=== PATIENT | female | born 1950 | race Caucasian/White ===

== ENCOUNTER 2023-12-09 14:40 | Outpatient (AMB) | payer MEDICARE, MEDICAID, SELFPAY ==
--- NOTE | 2023-12-09 15:00 | HO.NEPHOV_ITS ---
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: No Accompanied by: Spouse Allergies cimetidine [From Tagamet] Allergy (Verified 12/09/23 15:13) Gastrointestinal Upset clarithromycin [From Biaxin] Allergy (Verified 12/09/23 15:13) Unknown clonidine Allergy (Verified 12/09/23 15:13) spasms erythromycin base Allergy (Verified 12/09/23 15:13) Rash gabapentin Allergy (Verified 12/09/23 15:13) Muscle Pain lisinopril Allergy (Verified 12/09/23 15:13) Angioedema methocarbamol Allergy (Verified 12/09/23 15:13) Nausea ondansetron Allergy (Verified 12/09/23 15:13) Unknown Penicillins Allergy (Verified 12/09/23 15:13) Unknown Sulfa (Sulfonamide Antibiotics) Allergy (Verified 12/09/23 15:13) Rash tramadol [From Ultram] Allergy (Verified 12/09/23 15:13) Nausea and Vomiting trazodone Allergy (Verified 12/09/23 15:13) Nausea metoprolol Adverse Reaction (Verified 12/09/23 15:13) Agitated HPI Comments Details: I had the privilege of seeing Mercedez in consultation for labile blood pressure. She has hypertension from the age of 41 years and has been on multiple medications. She claims that she has a diagnosis of autonomic dysfunction and has been evaluated in the clinic in [place]. She is still follows up with a physician over there. She had tried multiple antihypertensive medications. She has lot of medication intolerances. She has history of aortic dissection and follows up with vascular surgery. She monitors her blood pressure closely at home. She feels she has a head esparza when her blood pressure goes up and takes hydralazine at the time. She does not take hydralazine on a regular basis. She has no history of renal artery dissection. She feels she gets spasms when she takes clonidine and has history of angioedema while taking lisinopril. She also has history of emotional lability while taking beta bloc ker. She denies any coronary artery disease, CVA, congestive heart failure or peripheral arterial disease. She denies any history of hypokalemia, hypercalcemia, uncontrolled thyroid disorders or documented history of sleep apnea. She was accompanied by her during this office visit. [facility] Medical History (Updated 12/09/23 @ 16:02 by Gurjit Brooks MD) Gastroparesis Autonomic dysreflexia Vertigo Fibromyalgia History of chronic constipation Essential (primary) hypertension Asthma Reflex sympathetic dystrophy Surgical History (Updated 12/04/23 @ 11:53 by Yani Tejada MA) History of repair of vocal cord History of cataract surgery History of cholecystectomy History of surgical removal of ganglion cyst History of appendectomy History of partial hysterectomy S/P cervical spinal fusion Family History (Updated 12/09/23 @ 15:18 by Yani Tejada MA) Father Cancer Paternal Grandfather Heart disease Hypertension Paternal Grandmother Heart disease Hypertension Social History (Updated 12/09/23 @ 15:19 by Yani Tejada MA) Alcohol intake: never Patient Tobacco Use Status: Never used Tobacco Physical Exam Vital Signs: Last Vital Signs Pulse 67 12/09/23 15:01 BP 180/80 H 12/09/23 15:01 Pulse Ox 98 12/09/23 15:01 Oxygen Delivery Method Room Air 12/09/23 15:01 BMI result Body Mass Index 21.7 Const General: comfortable and no acute distress Orientation/consciousness: patient oriented x3 HEENT Head: Yes normocephalic Mouth: Normal oral and palatal mucosa present Eyes EOM: EOMs intact bilaterally Neck Neck: Yes supple Resp Auscultation: clear to auscultation bilaterally Cardio Jugular venous distension: no JVD Rate: regular rate GI Palpation (GI): Soft to palpation Auscultation: normal bowel sounds General: Yes no CVA tenderness Back/Spine/Pelvis Back: no CVA tenderness Skin General skin exam: no rashes or lesions noted Neuro General: patient oriented x3 and moves all extremities Extrem General: Yes no pedal edema Results Reviewed Nephrology Results: No Data to Display Assessment & Plan Assessment & Plan (1) Labile hypertension: Code(s): R09.89 - Other specified symptoms and signs involving the circulatory and respiratory systems Category: Medical Plan Mercedez is known to have hypertension since age of 41 and has been on multiple antihypertensive medications. She claims to have lability of blood pressure ever since she was hospitalized few years ago. She had multiple medication changes. She had an episode of head esparza during the office visit during which I checked blood pressure multiple times and it was 120/80. She said she would have taken hydralazine based on subjective 80 if she was at home during the time, which I discouraged. She has not known to have any renal dysfunction. She has medication intolerances with clonidine, metoprolol and has history of angioedema with lisinopril. She does not take excessive sodium in the diet. I asked her to maintain on carvedilol. She also takes isosorbide(which she thinks was prescribed due to some atypical chest pain symptoms as well as blood pressure issues). I put a 24 hour ambulatory blood pressure during this office visit and send her home with it. I did not make any medication changes. She did not have any orthostatic symptoms while during the office visit. She needs to follow-up closely with the vascular surgeon. More than 50% time during this visit was utilized to discuss about all potential possibilities for the lability of blood pressure, it is investigations and possible management strategies. Answered all her and her 's questions. Follow-up appointment given Orders: Orders AMB 24 Hour Blood Pressure Monitor PLACEMENT 12/09/23 R09.89 - Other specified symptoms and signs involving the circulatory and respiratory systems Coding Level of Care Code New Pt Level 4 (89500) Diagnoses Labile hypertension R09.89
[2023-12-09 15:01] VITALS: BP 120/80; PULSE 67; O2SAT 98; BMI 21.7
== END 2023-12-09 16:25 | disposition home or self-care (01) ==
PROVIDERS: PCP Family Medicine; Referring Provider Family Medicine; Visit Provider Internal Medicine Nephrology
DX: R09.89 Other specified symptoms and signs involving the circulatory and respiratory systems (principal)
CPT/HCPCS: 99204

== ENCOUNTER → 2023-12-09 14:40 | Outpatient (BNVA) | payer MEDICARE, MEDICAID, SELFPAY | PROVIDERS: PCP Family Medicine; Referring Provider Family Medicine; Visit Provider Internal Medicine Nephrology | DX: R03.0 Elevated blood-pressure reading, without diagnosis of hypertension (principal) | CPT/HCPCS: 99202 ==

== ENCOUNTER → 2023-12-10 10:42 | Outpatient (BNVA) | payer MEDICARE, MEDICAID, SELFPAY | PROVIDERS: PCP Family Medicine; Visit Provider Internal Medicine Nephrology ==

== ENCOUNTER → 2023-12-11 10:43 | Outpatient (BNVA) | payer MEDICARE, MEDICAID, SELFPAY | PROVIDERS: PCP Family Medicine; Visit Provider Internal Medicine Nephrology ==

== ENCOUNTER 2023-12-16 13:47 | Outpatient (AMB) | payer MEDICARE, MEDICAID, SELFPAY ==
--- NOTE | 2023-12-16 13:52 | HO.NEPHOV_ITS ---
Vital Signs 12/16/23 13:53 Height 5 ft Weight 113 lb 4 oz BMI 22.1 BP 150/80 H Blood Pressure Location Lt brachial Position Sitting Pulse 74 Pulse Source Pulse Oximeter Pulse Oximetry (%) 98 Oxygen Delivery Method Room Air Intake Visit Reasons: 1 wk follow up/ Conf Dj Instructor Required: No Accompanied by: Spouse Allergies cimetidine [From Tagamet] Allergy (Verified 12/16/23 13:55) Gastrointestinal Upset clarithromycin [From Biaxin] Allergy (Verified 12/16/23 13:55) Unknown clonidine Allergy (Verified 12/16/23 13:55) spasms erythromycin base Allergy (Verified 12/16/23 13:55) Rash gabapentin Allergy (Verified 12/16/23 13:55) Muscle Pain lisinopril Allergy (Verified 12/16/23 13:55) Angioedema methocarbamol Allergy (Verified 12/16/23 13:55) Nausea ondansetron Allergy (Verified 12/16/23 13:55) Unknown Penicillins Allergy (Verified 12/16/23 13:55) Unknown Sulfa (Sulfonamide Antibiotics) Allergy (Verified 12/16/23 13:55) Rash tramadol [From Ultram] Allergy (Verified 12/16/23 13:55) Nausea and Vomiting trazodone Allergy (Verified 12/16/23 13:55) Nausea metoprolol Adverse Reaction (Verified 12/16/23 13:55) Agitated HPI Comments Details: I had the privilege of seeing Mercedez in follow up for labile blood pressure. She has hypertension from the age of 41 years and has been on multiple medications. She claims that she has a diagnosis of autonomic dysfunction and has been evaluated in the clinic in [place]. She is still follows up with a physician over there. She had tried multiple antihypertensive medications. She has lot of medication intolerances. She has history of aortic dissection and follows up with vascular surgery. She monitors her blood pressure closely at home. She feels she has a head esparza when her blood pressure goes up and takes hydralazine at the time. She does not take hydralazine on a regular basis. On further H/O taking today, she feels she gets a funny feeling followed by unawareness of her surroundings, disconnect from every one , foggy in head for an hour followed by urge to empty the bladder. After the event she feels tired. When someone checks her BP during the event, its always high. She never had chest pain, palpitations or tonic clonic movements of the limbs during this event. She has no history of renal artery dissection. She feels she gets spasms when she takes clonidine and has history of angioedema while taking lisinopril. She also has history of emotional lability while taking beta gautam. She denies any coronary artery disease, CVA, congestive heart failure or peripheral arterial disease. She denies any history of hypokalemia, hypercalcemia, uncontrolled thyroid disorders or documented history of sleep apnea. She had a 24 hour BPM which showed well controlled BP most of the time. She was accompanied by her during this office visit. [facility] Medical History (Updated 12/09/23 @ 16:02 by Gurjit Brooks MD) Gastroparesis Autonomic dysreflexia Vertigo Fibromyalgia History of chronic constipation Essential (primary) hypertension Asthma Reflex sympathetic dystrophy Surgical History History of repair of vocal cord History of cataract surgery History of cholecystectomy History of surgical removal of ganglion cyst History of appendectomy History of partial hysterectomy S/P cervical spinal fusion Family History Father Cancer Paternal Grandfather Heart disease Hypertension Paternal Grandmother Heart disease Hypertension Social History Alcohol intake: never Patient Tobacco Use Status: Never used Tobacco Review of Systems Const All systems reviewed & are unremarkable except as noted in HPI and below Physical Exam Vital Signs: Last Vital Signs Pulse 74 12/16/23 13:53 BP 150/80 H 12/16/23 13:53 Pulse Ox 98 12/16/23 13:53 Oxygen Delivery Method Room Air 12/16/23 13:53 BMI result Body Mass Index 22.1 Const General: comfortable and no acute distress Orientation/consciousness: patient oriented x3 HEENT Head: Yes normocephalic Mouth: Normal oral and palatal mucosa present Eyes EOM: EOMs intact bilaterally Neck Neck: Yes supple Resp Auscultation: clear to auscultation bilaterally Cardio Jugular venous distension: no JVD Rate: regular rate GI Palpation (GI): Soft to palpation Auscultation: normal bowel sounds General: Yes no CVA tenderness Back/Spine/Pelvis Back: no CVA tenderness Skin General skin exam: no rashes or lesions noted Neuro General: patient oriented x3 and moves all extremities Extrem General: Yes no pedal edema Results Reviewed Nephrology Results: No Data to Display Assessment & Plan Assessment & Plan (1) Labile hypertension: Code(s): R09.89 - Other specified symptoms and signs involving the circulatory and respiratory systems Category: Medical Plan Mercedez is known to have hypertension since age of 41 and has been on multiple antihypertensive medications. She claims to have lability of blood pressure ever since she was hospitalized few years ago. She had multiple medication changes. She had an episode of head esparza during the last office visit during which I checked blood pressure multiple times and it was 120/80. She said she would have taken hydralazine based on subjective 80 if she was at home during the time, which I discouraged. She needs LTM/ at least an EEG as well as a loop recorder. She is having a consultation with her [place] Neurologist on coming Friday. She has not known to have any renal dysfunction. She has medication intolerances with clonidine, metoprolol and has history of angioedema with lisinopril. She does not take excessive sodium in the diet. I asked her to maintain on carvedilol. She also takes isosorbide(which she thinks was prescribed due to some atypical chest pain symptoms as well as blood pressure issues). Her 24 hour ambulatory blood pressure showed an average of 125/ 69 mm of Hg with day time average of 132/73 mm of Hg and night time average of 101/54 mm of Hg. I did not make any medication changes. I ordered some more secondary work up for BP. She did not have any orthostatic symptoms while during the office visit. She needs to follow-up closely with the vascular surgeon. More than 50% time during this visit was utilized to discuss about all potential possibilities , it is investigations and possible management strategies. Answered all her and her 's questions. Follow-up appointment given Orders: Orders Aldost/Renin Today R09.89 - Other specified symptoms and signs involving the circulatory and respiratory systems Metanephrines, Plasma Today R09.89 - Other specified symptoms and signs involving the circulatory and respiratory systems Cortisol Random Today R09.89 - Other specified symptoms and signs involving the circulatory and respiratory systems Renin Today R09.89 - Other specified symptoms and signs involving the circulatory and respiratory systems Aldosterone Today R09.89 - Other specified symptoms and signs involving the circulatory and respiratory systems Coding Level of Care Code Est Pt Level 5 (89786) Diagnoses Labile hypertension R09.89
[2023-12-16 13:53] VITALS: BP 150/80; PULSE 74; O2SAT 98; BMI 22.1
== END 2023-12-16 14:23 | disposition home or self-care (01) ==
PROVIDERS: PCP Family Medicine; Visit Provider Internal Medicine Nephrology
DX: I10 Essential (primary) hypertension (principal); R09.89 Other specified symptoms and signs involving the circulatory and respiratory systems
CPT/HCPCS: 93790; 99214

== ENCOUNTER → 2023-12-16 13:47 | Outpatient (BNVA) | payer MEDICARE, MEDICAID, SELFPAY | PROVIDERS: PCP Family Medicine; Visit Provider Internal Medicine Nephrology | DX: R09.89 Other specified symptoms and signs involving the circulatory and respiratory systems (principal) | CPT/HCPCS: 99212 ==

== ENCOUNTER 2024-01-20 13:26 | Outpatient (AMB) | payer MEDICARE, MEDICAID, SELFPAY ==
--- NOTE | 2024-01-20 13:26 | HO.NEPHOV ---
Vital Signs 01/20/24 13:27 Height 5 ft Weight 110 lb BMI 21.5 BP 148/76 H Blood Pressure Location Lt brachial Position Sitting Pulse 75 Pulse Source Pulse Oximeter Intake Visit Reasons: 1 mon follow up/ Conf Director Of Clinical Applications Required: No Accompanied by: Self / Same As Patient Allergies cimetidine [From Tagamet] Allergy (Verified 01/20/24 13:27) Gastrointestinal Upset clarithromycin [From Biaxin] Allergy (Verified 01/20/24 13:27) Unknown clonidine Allergy (Verified 01/20/24 13:27) spasms erythromycin base Allergy (Verified 01/20/24 13:27) Rash gabapentin Allergy (Verified 01/20/24 13:27) Muscle Pain lisinopril Allergy (Verified 01/20/24 13:27) Angioedema methocarbamol Allergy (Verified 01/20/24 13:27) Nausea ondansetron Allergy (Verified 01/20/24 13:27) Unknown Penicillins Allergy (Verified 01/20/24 13:27) Unknown Sulfa (Sulfonamide Antibiotics) Allergy (Verified 01/20/24 13:27) Rash tramadol [From Ultram] Allergy (Verified 01/20/24 13:27) Nausea and Vomiting trazodone Allergy (Verified 01/20/24 13:27) Nausea metoprolol Adverse Reaction (Verified 01/20/24 13:27) Agitated HPI Comments Details: I had the privilege of seeing Mercedez in follow up by tele health visit for labile blood pressure. She has hypertension from the age of 41 years and has been on multiple medications. She claims that she has a diagnosis of autonomic dysfunction and has been evaluated in the clinic in [place]. She is still follows up with a physician over there. She had tried multiple antihypertensive medications. She has lot of medication intolerances. She has history of aortic dissection and follows up with vascular surgery( Dr Zaragoza). She monitors her blood pressure closely at home. She feels she has a head esparza when her blood pressure goes up and takes hydralazine at the time. She does not take hydralazine on a regular basis. On further H/O taking today, she feels she gets a funny feeling followed by unawareness of her surroundings, disconnect from every one , foggy in head for an hour followed by urge to empty the bladder. After the event she feels tired. When someone checks her BP during the event, its always high. She never had chest pain, palpitations or tonic clonic movements of the limbs during this event. She has no history of renal artery dissection. She feels she gets spasms when she takes clonidine and has history of angioedema while taking lisinopril. She also has history of emotional lability while taking beta gautam. She denies any coronary artery disease, CVA, congestive heart failure or peripheral arterial disease. She denies any history of hypokalemia, hypercalcemia, uncontrolled thyroid disorders or documented history of sleep apnea. She had a 24 hour BPM which showed well controlled BP most of the time. [facility] Medical History (Updated 12/09/23 @ 16:02 by Gurjit Brooks MD) Gastroparesis Autonomic dysreflexia Vertigo Fibromyalgia History of chronic constipation Essential (primary) hypertension Asthma Reflex sympathetic dystrophy Surgical History History of repair of vocal cord History of cataract surgery History of cholecystectomy History of surgical removal of ganglion cyst History of appendectomy History of partial hysterectomy S/P cervical spinal fusion Family History Father Cancer Paternal Grandfather Heart disease Hypertension Paternal Grandmother Heart disease Hypertension Social History Alcohol intake: never Patient Tobacco Use Status: Never used Tobacco Physical Exam Vital Signs: Last Vital Signs Pulse 75 01/20/24 13:27 BP 148/76 H 01/20/24 13:27 BMI result Body Mass Index 21.5 Telehealth Telehealth Telehealth Platform: Telephone Location of provider rendering services: practice address Location of patient: address on file Patient Identification confirmed using: Name, : Yes Telehealth method: voice only Patient verbally consented to treatment: Yes Patient verbally consented to billing insurance company: Yes Patient informed of any privacy concerns related to visit: No Results Reviewed Nephrology Results: No Data to Display Assessment & Plan Assessment & Plan (1) Labile hypertension: Code(s): R09.89 - Other specified symptoms and signs involving the circulatory and respiratory systems Category: Medical Plan Mercedez is known to have hypertension since age of 41 and has been on multiple antihypertensive medications. She claims to have lability of blood pressure ever since she was hospitalized few years ago. She had multiple medication changes. She had an episode of head esparza during one of the last office visits during which I checked blood pressure multiple times and it was 120/80. She said she would have taken hydralazine based on subjective 80 if she was at home during the time, which I discouraged. She needs LTM/ at least an EEG as well as a loop recorder. She has not known to have any renal dysfunction. She needs F/U of Doppler of renal arteries. She has medication intolerances with clonidine, metoprolol and has history of angioedema with lisinopril. She does not take excessive sodium in the diet. I increased the carvedilol to 12.5 mg in the morning and C/W 6.25 mg at night. She should take Isosorbide in the middle of the day. She thinks was prescribed due to some atypical chest pain symptoms as well as blood pressure issues. Her 24 hour ambulatory blood pressure showed an average of 125/ 69 mm of Hg with day time average of 132/73 mm of Hg and night time average of 101/54 mm of Hg. I did not make any other medication changes. She needs to follow-up closely with the vascular surgeon. More than 50% time during this visit was utilized to discuss about all potential possibilities , it is investigations and possible management strategies. Answered all her questions. Follow-up appointment given Coding Level of Care Code Tele Est Pt Level 4 (16104) Diagnoses Labile hypertension R09.89
[2024-01-20 13:27] VITALS: BP 148/76; PULSE 75; BMI 21.5
== END 2024-01-20 15:02 | disposition home or self-care (01) ==
LOC: HO.HKAS 13:26
PROVIDERS: PCP Family Medicine; Visit Provider Internal Medicine Nephrology
DX: R09.89 Other specified symptoms and signs involving the circulatory and respiratory systems (principal)
CPT/HCPCS: 99442

== ENCOUNTER → 2024-01-20 13:26 | Outpatient (BNVA) | payer MEDICARE, MEDICAID, SELFPAY | PROVIDERS: PCP Family Medicine; Visit Provider Internal Medicine Nephrology ==

== ENCOUNTER 2024-05-27 14:29 | Outpatient (AMB) | payer MEDICARE, MEDICAID, SELFPAY ==
--- NOTE | 2024-05-27 14:44 | HO.NEPHOV ---
Vital Signs 05/27/24 14:47 Height 5 ft Weight 109 lb 6 oz BMI 21.4 BP 190/74 H Blood Pressure Location Lt brachial Position Sitting Pulse 72 Pulse Source Pulse Oximeter Pulse Oximetry (%) 99 Oxygen Delivery Method Room Air Intake Visit Reasons: follow up Retirement Plan Specialist Required: No Accompanied by: Spouse Allergies cimetidine [From Tagamet] Allergy (Verified 05/27/24 14:47) Gastrointestinal Upset clarithromycin [From Biaxin] Allergy (Verified 05/27/24 14:47) Unknown clonidine Allergy (Verified 05/27/24 14:47) spasms erythromycin base Allergy (Verified 05/27/24 14:47) Rash gabapentin Allergy (Verified 05/27/24 14:47) Muscle Pain lisinopril Allergy (Verified 05/27/24 14:47) Angioedema methocarbamol Allergy (Verified 05/27/24 14:47) Nausea ondansetron Allergy (Verified 05/27/24 14:47) Unknown Penicillins Allergy (Verified 05/27/24 14:47) Unknown Sulfa (Sulfonamide Antibiotics) Allergy (Verified 05/27/24 14:47) Rash tramadol [From Ultram] Allergy (Verified 05/27/24 14:47) Nausea and Vomiting trazodone Allergy (Verified 05/27/24 14:47) Nausea metoprolol Adverse Reaction (Verified 05/27/24 14:47) Agitated HPI Comments Details: Mercedez was seen in follow for labile blood pressure. She has hypertension from the age of 41 years and has been on multiple medications. She claims that she has a diagnosis of autonomic dysfunction and has been evaluated in the clinic in [place]. She is still follows up with a physician over there. She had tried multiple antihypertensive medications. She has lot of medication intolerances. She has history of aortic dissection and follows up with vascular surgery( Dr Zaragoza). She monitors her blood pressure closely at home. She feels she has a head esparza when her blood pressure goes up and takes hydralazine at the time. She does not take hydralazine on a regular basis. On further H/O taking , she feels she gets a funny feeling followed by unawareness of her surroundings, disconnect from every one , foggy in head for an hour followed by urge to empty the bladder. After the event she feels tired. When someone checks her BP during the event, its always high. She never had chest pain, palpitations or tonic clonic movements of the limbs during this event. She has no history of renal artery dissection. She feels she gets spasms when she takes clonidine and has history of angioedema while taking lisinopril. She also has history of emotional lability while taking beta gautam. She denies any coronary artery disease, CVA, congestive heart failure or peripheral arterial disease. She denies any history of hypokalemia, hypercalcemia, uncontrolled thyroid disorders or documented history of sleep apnea. Her Carvedilol dose was increased recently. [facility] Medical History (Updated 12/09/23 @ 16:02 by Gurjit Brooks MD) Gastroparesis Autonomic dysreflexia Vertigo Fibromyalgia History of chronic constipation Essential (primary) hypertension Asthma Reflex sympathetic dystrophy Surgical History History of repair of vocal cord History of cataract surgery History of cholecystectomy History of surgical removal of ganglion cyst History of appendectomy History of partial hysterectomy S/P cervical spinal fusion Family History Father Cancer Paternal Grandfather Heart disease Hypertension Paternal Grandmother Heart disease Hypertension Social History Alcohol intake: never Patient Tobacco Use Status: Never used Tobacco Review of Systems Const All systems reviewed & are unremarkable except as noted in HPI and below Physical Exam Vital Signs: Last Vital Signs Pulse 72 05/27/24 14:47 BP 190/74 H 05/27/24 14:47 Pulse Ox 99 05/27/24 14:47 Oxygen Delivery Method Room Air 05/27/24 14:47 BMI result Body Mass Index 21.4 Const General: comfortable and no acute distress Orientation/consciousness: patient oriented x3 HEENT Head: Yes normocephalic Mouth: Normal oral and palatal mucosa present Eyes EOM: EOMs intact bilaterally Neck Neck: Yes supple Resp Auscultation: clear to auscultation bilaterally Cardio Jugular venous distension: no JVD Rate: regular rate GI Palpation (GI): Soft to palpation Auscultation: normal bowel sounds General: Yes no CVA tenderness Back/Spine/Pelvis Back: no CVA tenderness Skin General skin exam: no rashes or lesions noted Neuro General: patient oriented x3 and moves all extremities Extrem General: Yes no pedal edema Results Reviewed Nephrology Results: No Data to Display Assessment & Plan Assessment & Plan (1) Labile hypertension: Code(s): R09.89 - Other specified symptoms and signs involving the circulatory and respiratory systems Category: Medical Plan Mercedez is known to have hypertension since age of 41 and has been on multiple antihypertensive medications. She claims to have lability of blood pressure ever since she was hospitalized few years ago. She had multiple medication changes. She needs LTM/ at least an EEG as well as a loop recorder. She has not known to have any renal dysfunction. She needs F/U of Doppler of renal arteries. She has medication intolerances with clonidine, metoprolol and has history of angioedema with lisinopril. She does not take excessive sodium in the diet. I increased the carvedilol to 12.5 mg in the morning and evening & started her on Spironolactone 25 mg in the middle of the day. I did not make any other medication changes. She needs to follow-up closely with the vascular surgeon. Follow-up appointment given Medications: New spironolactone 25 mg PO DAILY 30 tabs 4RF Coding Level of Care Code Est Pt Level 4 (00665) Diagnoses Labile hypertension R09.89
[2024-05-27 14:47] VITALS: BP 190/74; PULSE 72; O2SAT 99; BMI 21.4
== END 2024-05-27 15:16 | disposition home or self-care (01) ==
PROVIDERS: PCP Family Medicine; Visit Provider Internal Medicine Nephrology
DX: R09.89 Other specified symptoms and signs involving the circulatory and respiratory systems (principal)
CPT/HCPCS: 99214

== ENCOUNTER → 2024-05-27 14:29 | Outpatient (BNVA) | payer MEDICARE, MEDICAID, SELFPAY | PROVIDERS: PCP Family Medicine; Visit Provider Internal Medicine Nephrology | DX: R09.89 Other specified symptoms and signs involving the circulatory and respiratory systems (principal) | CPT/HCPCS: 99212 ==

== ENCOUNTER 2024-06-10 13:33 | Outpatient (AMB) | payer MEDICARE, MEDICAID, SELFPAY ==
--- NOTE | 2024-06-10 13:47 | HO.NEPHOV ---
Vital Signs 06/10/24 13:48 Height 5 ft Weight 114 lb 8 oz BMI 22.4 BP 140/70 H Blood Pressure Location Lt brachial Position Sitting Pulse 65 Pulse Source Pulse Oximeter Pulse Oximetry (%) 98 Oxygen Delivery Method Room Air Intake Visit Reasons: 2wk follow up No Labs-Conf Club Attendant Required: No Accompanied by: Spouse Allergies cimetidine [From Tagamet] Allergy (Verified 06/10/24 13:49) Gastrointestinal Upset clarithromycin [From Biaxin] Allergy (Verified 06/10/24 13:49) Unknown clonidine Allergy (Verified 06/10/24 13:49) spasms erythromycin base Allergy (Verified 06/10/24 13:49) Rash gabapentin Allergy (Verified 06/10/24 13:49) Muscle Pain lisinopril Allergy (Verified 06/10/24 13:49) Angioedema methocarbamol Allergy (Verified 06/10/24 13:49) Nausea ondansetron Allergy (Verified 06/10/24 13:49) Unknown Penicillins Allergy (Verified 06/10/24 13:49) Unknown Sulfa (Sulfonamide Antibiotics) Allergy (Verified 06/10/24 13:49) Rash tramadol [From Ultram] Allergy (Verified 06/10/24 13:49) Nausea and Vomiting trazodone Allergy (Verified 06/10/24 13:49) Nausea metoprolol Adverse Reaction (Verified 06/10/24 13:49) Agitated HPI Comments Details: Mercedez was seen in follow for labile blood pressure. She has hypertension from the age of 41 years and has been on multiple medications. She claims that she has a diagnosis of autonomic dysfunction and has been evaluated in the clinic in [place]. She is still follows up with a physician over there. She had tried multiple antihypertensive medications. She has lot of medication intolerances. She has history of aortic dissection and follows up with vascular surgery( Dr Zaragoza). She monitors her blood pressure closely at home. She feels she has a head esparza when her blood pressure goes up and takes hydralazine at the time. She does not take hydralazine on a regular basis. On further H/O taking , she feels she gets a funny feeling followed by unawareness of her surroundings, disconnect from every one , foggy in head for an hour followed by urge to empty the bladder. After the event she feels tired. When someone checks her BP during the event, its always high. She never had chest pain, palpitations or tonic clonic movements of the limbs during this event. She has no history of renal artery dissection. She feels she gets spasms when she takes clonidine and has history of angioedema while taking lisinopril. She also has history of emotional lability while taking beta gautam. She denies any coronary artery disease, CVA, congestive heart failure or peripheral arterial disease. She denies any history of hypokalemia, hypercalcemia, uncontrolled thyroid disorders or documented history of sleep apnea. Her Carvedilol dose was increased recently. She was prescribed Spironolactone which she says was not agreeing with her stomach & she stopped it. She has seen Dr Degroot and was prescribed candesartan which she is tolerating well. [facility] Medical History (Updated 12/09/23 @ 16:02 by Gurjit Brooks MD) Gastroparesis Autonomic dysreflexia Vertigo Fibromyalgia History of chronic constipation Essential (primary) hypertension Asthma Reflex sympathetic dystrophy Surgical History History of repair of vocal cord History of cataract surgery History of cholecystectomy History of surgical removal of ganglion cyst History of appendectomy History of partial hysterectomy S/P cervical spinal fusion Family History Father Cancer Paternal Grandfather Heart disease Hypertension Paternal Grandmother Heart disease Hypertension Social History Alcohol intake: never Patient Tobacco Use Status: Never used Tobacco Review of Systems Const All systems reviewed & are unremarkable except as noted in HPI and below Physical Exam Vital Signs: Last Vital Signs Pulse 65 06/10/24 13:48 BP 140/70 H 06/10/24 13:48 Pulse Ox 98 06/10/24 13:48 Oxygen Delivery Method Room Air 06/10/24 13:48 BMI result Body Mass Index 22.4 Const General: comfortable and no acute distress Orientation/consciousness: patient oriented x3 HEENT Head: Yes normocephalic Mouth: Normal oral and palatal mucosa present Eyes EOM: EOMs intact bilaterally Neck Neck: Yes supple Resp Auscultation: clear to auscultation bilaterally Cardio Jugular venous distension: no JVD Rate: regular rate GI Palpation (GI): Soft to palpation Auscultation: normal bowel sounds General: Yes no CVA tenderness Back/Spine/Pelvis Back: no CVA tenderness Skin General skin exam: no rashes or lesions noted Neuro General: patient oriented x3 and moves all extremities Extrem General: Yes no pedal edema Results Reviewed Nephrology Results: No Data to Display Assessment & Plan Assessment & Plan (1) Labile hypertension: Code(s): R09.89 - Other specified symptoms and signs involving the circulatory and respiratory systems Category: Medical Plan Mercedez is known to have hypertension since age of 41 and has been on multiple antihypertensive medications. She claims to have lability of blood pressure ever since she was hospitalized few years ago. She had multiple medication changes. She needs LTM/ at least an EEG as well as a loop recorder. She has not known to have any renal dysfunction. She needs F/U of Doppler of renal arteries. She has medication intolerances with clonidine, metoprolol and has history of angioedema with lisinopril. She does not take excessive sodium in the diet. I increased the carvedilol to 12.5 mg in the morning and evening. I increased her Candesartan to 8 mg daily. I did not make any other medication changes. She needs to follow-up closely with the vascular surgeon. Follow-up appointment given Orders: Orders Creatinine 6 Weeks R09.89 - Other specified symptoms and signs involving the circulatory and respiratory systems Blood Urea Nitrogen 6 Weeks R09.89 - Other specified symptoms and signs involving the circulatory and respiratory systems Electrolytes 6 Weeks R09.89 - Other specified symptoms and signs involving the circulatory and respiratory systems Coding Level of Care Code Est Pt Level 4 (42869) Diagnoses Labile hypertension R09.89
[2024-06-10 13:48] VITALS: BP 140/70; PULSE 65; O2SAT 98; BMI 22.4
--- OUTSIDE RECORDS SUMMARY | 2024-06-16 02:36 | XMS_ITS | Continuity of Care Document ---
Author Organization [facility] Address [address] [place] [id number]- Care Team Providers Care Timers Inspector Name Role Phone Benson Macdonald MD Primary Care Physician [id number] Date(s): 04/07/24 - 06/09/24 [facility] [address], [place] [id number] Attending Physician: Mary Anne Bello NP Admitting Physician: Mary Anne Bello NP Referring Physician: Mary Anne Bello NP Encounter Type: Pre-Outpt Allergies, Adverse Reactions, Alerts Substance Criticality Severity Reaction Reaction Severity Status erythromycin Drug-induced na usea and vomiting Active penicillin Rash Active lisinopril Angioedema Active sulfa drugs EVERETT - Difficult y in breathing Active Zofran elongation of QT Act naila Tagamet Bilateral weakn ess of legs Active Biaxin Rash Active Ultram Nausea Active Bee Stings swelling Active Nuts diarrhea Hazelnut Active Toprol-XL Depressed Active TraZODONE Hydrochloride Nausea Active cloNIDine Tremors Neurological Active Immunizations Given and Recorded Vaccine Date Status Refusal Reason influenza virus vaccine, inactivated 10/04/23 Give n Medications aspirin 81 mg oral delayed release tablet 81 mg, By Mouth, Daily, # 30 tablet, Refills 11, Tot. Refills 11, Maintenance, 10/07/23 8:20:00 AM EDT, Route to Pharmacy Electronically, [facility]/pharmacy #[id number], Partial fill upon patient request if the prescription is for a schedule II opioid drug., 153, cm, 10/06/23 3:32:00 EDT, Height, 50, kg, 10/03/23 10:04:00 EDT, Dry Weight Start Date: 10/07/23 Stop Date: 10/01/24 Status: Ordered Quantity: 30.0 Unit: tablet Repeat number: 12 atorvastatin 40 mg oral tablet 1 tablet = 40 mg, By Mouth, Daily at bedtime, # 30 tablet, 5 Refills, Maintenance, 03/12/22 4:08:00 PM EDT, Tablet, [id number], Partial fill upon patient request if the prescription is for aschedule II opioid drug., 153, cm, 01/19/22 17:41:00 EDT, Height, 50, kg, 01/19/22 13:01:00 EDT, Dry Weight Start Date: 03/12/22 Status: Ordered Quantity: 30.0 Unit: tablet Repeat number: 6 [place] Saline Mist 0.65% nasal spray 1 sprays, Nares, Both, Daily, PRN as needed for dry nasal passages, 0 Refills, Maintenance, 08/14/23 8:35:00 AM EST, Partial fill upon patient request if the prescription is for a schedule II opioid drug. Start Date: 08/14/23 Status: Ordered Repeat number: 1 carisoprodol 350 mg oral tablet 1 tablet = 350 mg, By Mouth, 3 times a day, 0 Refills, Maintenance, 03/06/24 2:38:00 AM EDT, Tablet,Partial fill upon patient request if the prescription is for a schedule II opioid drug. Start Date: 03/06/24 Status: Ordered Repeat number: 1 carvedilol 12.5 mg oral tablet 12.5 mg, 1, tablet, By Mouth, 2 times a day, Refills 0, Maintenance, 03/11/24 9:36:00 AM EDT, Partialfill upon patient request if the prescription is for a schedule II opioid drug. Start Date: 03/11/24 Status: Ordered Repeat number: 1 docusate-senna 50 mg-187 mg oral tablet 1 tablet, By Mouth, Daily, # 30 tablet, 0 Refills, Maintenance, 12/22/19 3:24:00 PM EDT, Tablet, [id number], 1 tablet By Mouth Daily, 153, cm, 12/22/19 11:55:00 EDT, Height, 49.2, kg, 12/17/19 17:24:00 EDT, Dry Weight Start Date: 12/22/19 Status: Ordered Quantity: 30.0 Unit: tablet Repeat number: 1 gabapentin 100 mg oral capsule 100 mg, 1, capsule, By Mouth, 2 times a day Start Date: 08/14/23 Status: Ordered Repeat number: 1 hydrALAZINE 25 mg oral tablet See Instructions, Take 1 tablet By Mouth daily as needed for systoilc blood pressure greater than 150. OR, take 2 tablets by mouth daily as needed for systoic BP greater than 200, # 180 tablet, Refills 1, Tot. Refills 1, Maintenance, 04/09/24 4:03:00 PM EDT, Instructions Replace Required Details, [id number] fill upon patient request if the prescription is for a schedule II opioid drug., 152, cm, 04/07/24 8:35:00 EDT, Height, 49.7, kg, 03/21/24 4:09:00 EDT, Dry Weight Start Date: 04/09/24 Status: Ordered Quantity: 180.0 Unit: tablet Repeat number: 2 isosorbide mononitrate 30 mg oral tablet, extended release 30 mg, 1, tablet, By Mouth, Daily in AM, # 90 tablet, Refills 0, Tot. Refills 0, Maintenance, 12/17/22 2:56:00 PM EDT, Route to Pharmacy Electronically, [id number], Partial fill upon patient request if the prescription is for a schedule II opioid drug., 152.4, cm, 12/17/22 14:33:00 EDT, Height, 54.5, kg, 12/14/22 22:20:00 EDT, Dry Weight Start Date: 12/17/22 Status: Ordered Quantity: 90.0 Unit: tablet Repeat number: 1 lidocaine 1% topical lotion 1 application, Topically, 2 times a day, PRN Pain , Moderate, 0 Refills, Maintenance, 12/13/17 10:52:03 AM EDT Start Date: 12/13/17 Status: Ordered Repeat number: 1 mirtazapine 7.5 mg oral tablet 1 tablet = 7.5 mg, By Mouth, Daily, at night Start Date: 08/14/23 Status: Ordered Repeat number: 1 Multi Vitamin+ 1 tablet, By Mouth, Daily, 0 Refills, Maintenance, 08/14/23 8:35:00 AM EST, Partial fill upon patientrequest if the prescription is for a schedule II opioid drug. Start Date: 08/14/23 Status: Ordered Repeat number: 1 offloading sandal offloading sandal, See Instructions, # 1 each, Refills 0, Tot. 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, 02/18/24 2:18:00 PM EDT, Supply Start Date: 02/18/24 Status: Ordered Quantity: 1.0 Unit: each Repeat number: 1 ondansetron 4 mg oral tablet, disintegrating 1 tablet = 4 mg, By Mouth, Every 8 hours, PRN Nausea & Vomiting, # 9 tablet, 0 Refills, Maintenance, 05/16/24 8:00:00 PM EST, Tablet, [facility]/pharmacy #[id number], Partial fill upon patient request if the prescription is for a schedule II opioid drug., 152, cm, 05/16/24 16:30:00 EST, Height, 50, kg, 05/16/24 16:30:00 EST, Dry Weight Start Date: 05/16/24 Stop Date: 05/19/24 Status: Ordered Quantity: 9.0 Unit: tablet Repeat number: 1 Pepcid 40 mg oral tablet 1 tablet = 40 mg, By Mouth, 2 times a day, # 30 tablet, 0 Refills, Maintenance, 08/10/20 5:53:00 PM EST, Tablet, Partial fill upon patient request if the prescription is for a schedule II opioid drug. Start Date: 08/10/20 Status: Ordered Quantity: 30.0 Unit: tablet Repeat number: 1 Vicodin 5/500 Tablet By Mouth, Every 6 hours, 0 Refills, Maintenance, 03/05/24 12:25:00 PM EDT, Partial fill upon patientrequest if the prescription is for a schedule II opioid drug. Start Date: 03/05/24 Status: Ordered Repeat number: 1 Vitamin D3 = 2,000 International_Units, By Mouth, Daily in AM, 0 Refills, Maintenance, 11/09/14 1:25:56 PM EDT Start Date: 11/09/14 Status: Ordered Repeat number: 1 Xanax 0.5 mg oral tablet 0.5 mg, 1, tablet, By Mouth, 2 times a day, PRN, Refills 0, Maintenance, Anxiety, 12/17/19 2:58:00 PM EDT Start Date: 12/17/19 Status: Ordered Repeat number: 1 Problem List Condition Confirmation Course Effective Dates Status H ealth Status Informant Chest pain Confirmed Active Chronic cholecystitis Confirmed Active Chronic pain Confirmed Active Aortic dissection Confirmed Active Dyspnea Confirmed Active Dyspnea on effort Confirmed Active Edema Confirmed Active Fibromyalgia Confirmed Active Ganglion of wrist Confirmed Active Heart failure with preserved ejection fraction, borderline, NYHA class I Confirmed Active Hip pain Confirmed Active Hx of endarterectomy Confirmed Active HLD (hyperlipidemia) Confirmed Active Hypertension Confirmed Active IBS - Irritable bowel syndrome Confirmed Active Frequency of urination Confirmed Active Leukocytosis Confirmed Active Reflex sympathetic dystrophy Confirmed Active Sciatica Confirmed Active Postop check Confirmed Active SIRS (systemic inflammatory response syndrome) Confirmed Active Social History Social History Type Response Smoking Status Never (less than 100 in lifetime) entered on: 12/15/18 Sex Sex Representation Female (finding) Implantable Device List Procedure Provider Procedure Date Device Type Site Phacoemulsification Cataract with Jet Perez MD 07/25/20 Unknown Eye Left Device Identifier Serial Number Lot or Batch Number Manufacturing Date Expiration Date Distinct Identification Code MRI Safety Implantable Status Assigning Authority Unknown [id number] Unknown Unknown 02/03/21 Unknown Unknown Active Unknown Unknown [id number] Unknown 12/03/21 Unknown Unknown Active Unkn own Procedure Provider Procedure Date Device Type Site Phacoemulsification Cataract with Jet Perez MD 06/20/20 Unknown Eye Right Device Identifier Serial Number Lot or Batch Number Manufacturing Date Expiration Date Distinct Identification Code MRI Safety Implantable Status Assigning Authority Unknown [id number] Unknown Unknown 07/06/20 Unknown Unknown Active Unknown Patient Care team information Care Team Personnel Name: Jasmin Richards RN Position: [facility] RN Member Role: Primary Care Nurse Name: Mer Montague Position: [facility] RN Supv Member Role: Primary Care Nurse Name: Osmani Pride RN Position: [facility] RN Member Role: Primary Care Nurse Name: Galina Mistry RN Position: [facility] RN Member Role: Primary Care Nurse Name: Ashley Reza RN Position: [facility] ED RN W/OE and Tasks Member Role: Primary Care Nurse Name: Nadeem Kohli MD Position: [facility] Cardiology MD Member Role: Lifetime Consulting Physician Address: [address] [place] [address] [address] [place] [address]- Telecom: Name: Arabella Baez RN Position: [facility] RN Member Role: Primary Care Nurse Name: Domenic Guillaume RN Position: [facility] RN Member Role: Primary Care Nurse Name: Cameron Melo RN Position: [facility] RN Member Role: Primary Care Nurse Name: Arsenio White RN Position: [facility] RN Member Role: Primary Care Nurse Name: Jaime Ramos RN Position: [facility] Outreach Member Role: Primary Care Nurse Name: Cony Schwartz RN Position: [facility] RN Member Role: Primary Care Nurse Name: Maeve Sanon RN Position: [facility] RN Member Role: Primary Care Nurse Name: Arian Mendoza RN Position: [facility] SN RN Member Role: Primary Care Nurse Name: Benson Macdonald MD Position: [facility] Outreach Member Role: PCP Address: [address] [place] [id number]- Telecom: Name: Rohini Knight RN Position: [facility] RN Member Role: Primary Care Nurse Name: Nataly Arrington RN Position: [facility] RN Member Role: Primary Care Nurse Name: Anabell Beard RN Position: [facility] RN Member Role: Primary Care Nurse Name: Lucia Luke RN Position: [facility] RN Member Role: Primary Care Nurse Name: Kendra Ruiz RN Position: [facility] RN Member Role: Primary Care Nurse Name: Karuna Limon RN Position: [facility] RN Member Role: Primary Care Nurse Name: Eunice Shannon RN Position: [facility] RN Member Role: Primary Care Nurse Name: Aly Maria Jr, RN Position: [facility] ED RN W/OE and Tasks Member Role: Primary Care Nurse Name: Arabella Cabrera RN Position: [facility] RN Member Role: Primary Care Nurse Name: Dilcia Quintanilla RN Position: [facility] RN Member Role: Primary Care Nurse Name: Mattie Melo RN Position: [facility] Outreach Member Role: Primary Care Nurse Name: Conor Park RN Position: [facility] RN Member Role: Primary Care Nurse Name: Salma Jalloh RN Position: [facility] RN Supv Member Role: Primary Care Nurse Name: Roma Reyes RN Position: [facility] RN Member Role: Primary Care Nurse Name: Janelle Uriostegui RN Position: [facility] RN Member Role: Primary Care Nurse Name: Cindy Meza RN Position: [facility] Hide Examiner Member Role: Primary Care Nurse Care Team Related Persons Name: JENISE WILBURNN Name: ALEXANDER DOMINIQUE Insurance Providers Guarantor name: HUNG DOMINIQUE Health Plan Information #: 2 Payer: [facility] Member Number: [id number] Policy Number: NA Group Number: NA Health Plan Information #: 1 Payer: MEDICARE PART B OUTPT Member Number: [id number] Policy Number: NA Group Number: NA
--- OUTSIDE RECORDS SUMMARY | 2024-06-16 02:36 | XMS_ITS | Continuity of Care Document ---
Author Organization [facility] Address [address] [place] [address]- Care Team Providers Care Dimensional Integration Engineer Name Role Phone Benson Macdonald MD Primary Care Physician [id number] Date(s): 06/11/24 - 06/11/[address] [address]- Encounter Diagnosis Leg pain(Final) - 06/11/24 Discharge Disposition: A-D/C Home Attending Physician: Venice Lozoya DO Admitting Physician: Venice Lozoya DO Referring Physician: Not on Staff, Referring MD Encounter Type: Disch ES Allergies, Adverse Reactions, Alerts Substance Criticality Severity [...] 8:20:00 AM EDT, Route to Pharmacy Electronically, [facility]/pharmacy #[id number], Partial fill upon patient request if [...] Refills, Maintenance, 03/12/22 4:08:00 PM EDT, Tablet, [id number], Partial fill upon patient request if the prescription is for aschedule II opioid drug., 153, cm, 01/19/22 17:41:00 EDT, Height, 50, kg, 01/19/22 13:01:00 EDT, Dry Weight Start Date: 03/12/22 Status: Ordered Quantity: 30.0 Unit: tablet Repeat number: 6 [place] Saline Mist 0.65% nasal spray 1 sprays, Nares, Both, Daily, PRN as needed for dry nasal passages, 0 Refills, Maintenance, 08/14/23 8:35:00 AM EST, Partial fill upon patient request if the prescription is for a schedule II opioid drug. Start Date: 08/14/23 Status: Ordered Repeat number: 1 candesartan 4 mg oral tablet 1 tablet = 4 mg, By Mouth, Daily, 0 Refills, Maintenance, 06/11/24 2:19:00 PM EST, Partial fill uponpatient request if the prescription is for a schedule II opioid drug. Start Date: 06/11/24 Status: Ordered Repeat number: 1 carisoprodol 350 mg oral tablet 1 tablet = 350 mg, By Mouth, 3 times a day, 0 Refills, Maintenance, 03/06/24 2:38:00 AM EDT, Tablet,Partial fill upon patient request if the prescription is for a schedule II opioid drug. Start Date: 03/06/24 Status: Ordered Repeat number: 1 carisoprodol 350 mg oral tablet 350 mg, Tablet, By Mouth, Once, STAT, 06/11/24 8:00:00 PM EST, Stop date 06/11/24 8:52:54 PM EST Start Date: 06/11/24 Stop Date: 06/11/24 Status: Completed Repeat number: 1 carvedilol 12.5 mg oral [...] Refills, Maintenance, 12/22/19 3:24:00 PM EDT, Tablet, [id number], 1 tablet By Mouth Daily, 153, cm, [...] Required Details, Rou te to Pharmacy Electronically, [facility]/pharmacy #[id number], Partial fill upon patient request if [...] 2:56:00 PM EDT, Route to Pharmacy Electronically, [id number], Partial fill upon patient request if the [...] Refills, Maintenance, 05/16/24 8:00:00 PM EST, Tablet, [facility]/pharmacy #[id number], Partial fill upon patient request if the [...] SIRS (systemic inflammatory response syndrome) Confirmed Active Vital Signs Most recent to oldest [Reference Range]: 1 2 3 Height 152.5 cm (06/11/24 9:43 PM) 152.5 cm (06/11/24 8:41 PM) 152.5 cm (06/11/24 3:56 PM) Weight 50.8 kg (06/11/24 9:43 PM) 50.8 kg (06/11/24 8:41 PM) 50.8 kg (06/11/24 3:56 PM) Oxygen Saturation [94-100 %] 98 % (06/11/24 9:43 PM) 98 % (06/11/24 8:41 PM) 98 % (06/11/24 3:56 PM) Pulse Rate [55-90 bpm] 68 bpm (06/11/24 9:43 PM) 80 bpm (06/11/24 8:41 PM) 80 bpm (06/11/24 3:56 PM) Body Mass Index [18.5-24.99 kg/m2] 21.84 kg/m2 (06/11/24 9:43 PM) 21.84 kg/m2 (06/11/24 8:41 PM) 21.84 kg/m2 (06/11/24 3:56 PM) Blood Pressure [90-138/55-84 mm Hg] 116/42mm Hg (06/11/24 9:43 PM) 192/70mm Hg *H* (06/11/24 8:41 PM) 184/75mm Hg *H* (06/11/24 3:56 PM) Respiratory Rate [16-30 br/min] 16 br/min (06/11/24 9:43 PM) 18 br/min (06/11/24 8:50 PM) 19 br/min (06/11/24 8:41 PM) Temperature [96.8-100.4 DegF] 98.1 DegF (06/11/24 2:18 PM) Mode of Delivery (Oxygen) Room air (06/11/24 9:43 PM) Room air (06/11/24 8:41 PM) Room air (06/11/24 2:18 PM) Blood pressure sites Arm, left (06/11/24 9:43 PM) Arm, left (06/11/24 8:41 PM) Arm, right (06/11/24 3:56 PM) Temperature Route Temporal (06/11/24 2:18 PM) Dry Weight 50.8 kg (06/11/24 9:43 PM) 50.8 kg (06/11/24 8:41 PM) 50.8 kg (06/11/24 3:56 PM) Weight Obtained Via Standing scale (06/11/24 2:18 PM) Dry Weight Obtained Via Standing scale (06/11/24 2:18 PM) Social History Social History Type Response Smoking [...] MRI Safety Implantable Status Assigning Authority Unknown [id number] Unknown Unknown 02/03/21 Unknown Unknown Active Unknown Unknown [id number] Unknown 12/03/21 Unknown Unknown Active Unkn own Procedure Provider Procedure Date Device Type Site Phacoemulsification Cataract with Jet Perez MD 06/20/20 Unknown Eye Right Device Identifier Serial Number Lot or Batch Number Manufacturing Date Expiration Date Distinct Identification Code MRI Safety Implantable Status Assigning Authority Unknown [id number] Unknown Unknown 07/06/20 Unknown Unknown Active Unknown Note * Venice Lozoya DO: PERFORM, SIGN, VERIFY Event Display: Patient Education Handout Authored Date: [id number] * Venice Lozoya DO: PERFORM Event Display: Patient Education Leaflets Authored Date: [id number] Sciatica ?? [id number] Sciatica Sciatica is a condition that causes pain in the low back that spreads down into the buttock, hip, and leg. Sometimes the leg pain can happen without any back pain. Sciatica happens when a spinal nerve is irritated or has pressure put on it as it comes out of the spinal canal in the low back. This most often happens when a bulge or rupture of a nearby spinal disk presses on the nerve. Sciatica canalso be caused by a narrowing of the spinal canal (spinal stenosis) or spasm of the muscle in the buttocks that the sciatic nerve passes through (piriformis muscle). Sciatica may also be called lumbar radiculopathy. Sciatica may start after a sudden twisting or bending force, such as in a car accident. Or it can happen after a simple awkward movement. In either case, muscle spasm often also happens. Muscle spasmmakes the pain worse. A healthcare provider makes a diagnosis of sciatica from your symptoms and a physical exam. Unless you had an injury from a car accident or fall, you usually won???t have X-rays taken at this time. This is because the nerves and disks in your back can???t be seen on an X-ray. If the provider suspects a compressed nerve based on your history or exam, you'll need to schedule an MRI scan. Nerve conductions studies and electromyography are nerve tests that can also help find the cause of nerve pain. Signs of a compressed nerve include loss of strength or reflexes in a leg. Most sciatica gets better with medicine, exercise, and physical therapy. If your symptoms continue after medical treatment, you may need surgery or shots (injections) to your low back. This will depend on how severe your symptoms are. Home care Follow these tips when caring for yourself at home: ??? As soon as possible, start sitting up or walking. This will help you prevent problems that come from staying in bed for long periods. ??? When in bed, try to find a position that is comfortable. A firm mattress is best. Try lying flat on your back with pillows under your knees. You can also try lying on your side with your knees bent up toward your chest and a pillow between your knees. ??? Don't sit for long periods. This puts more stresson your low back than standing or walking. ??? Use heat from a hot shower, hot bath, or heating padto help ease pain. Massage can also help. You can also try using an ice pack. You can make your ownice pack by putting ice cubes in a plastic bag that seals at the top. Wrap the bag in a thin towel.Try both heat and cold to see which works best. Use the method that feels best for 20 minutes several times a day. ??? You may use acetaminophen or ibuprofen to ease pain, unless another pain medicine was prescribed. Note: If you have chronic liver or kidney disease, talk with your healthcare provider before taking these medicines. Also, talk with your provider if you???ve had a stomach ulcer or digestive tract bleeding. ??? Use safe lifting methods. Don???t lift anything heavier than advised until all of the pain is gone. ?? Follow-up care Follow up with your healthcare provider, or as advised. You may need physical therapy or more tests. If X-rays were taken, a radiologist will look at them. You'll be told of any new findings that may affect your care. ?? When to get medical care Call your healthcare provider right away??if any of these occur: ??? Pain gets worse even after taking prescribed medicine ??? Weakness or numbness in 1 or both legs or hips ??? Numbness in your groin or genital area ??? You can???t control your bowel or bladder ??? Fever 100.4??F (38??C) or higher, or as advised by your provider ??? Redness or swelling over your back or spine? Last Reviewed Date: 2021 ?? 8235-2175 [employer]. All rights reserved. This information is not intended as a substitute for professional medical care. Always follow your healthcare professional's instructions. ?? Patient Care team information Care Team Personnel Name: Jasmin Richards RN Position: [facility] RN Member Role: Primary Care Nurse Name: Mer Montague Position: [facility] RN Supv Member Role: Primary Care Nurse Name: Osmani Pride RN Position: [facility] RN Member Role: Primary Care Nurse Name: Galina Mistry RN Position: [facility] RN Member Role: Primary Care Nurse Name: Ashley Reza RN Position: [facility] ED RN W/OE and Tasks Member Role: Primary Care Nurse Name: Nadeem Kohli MD Position: [facility] Cardiology MD Member Role: Lifetime Consulting Physician Address: [address] [place] [address] [address] Telecom: Name: Arabella Baez RN Position: [facility] RN Member Role: Primary Care Nurse Name: Domenic Guillaume RN Position: [facility] RN Member Role: Primary Care Nurse Name: Cameron Melo RN Position: [facility] RN Member Role: Primary Care Nurse Name: Arsenio White RN Position: [facility] RN Member Role: Primary Care Nurse Name: Jaime Ramos RN Position: S Outreach Member Role: Primary Care Nurse Name: Cony Schwartz RN Position: [facility] RN Member Role: Primary Care Nurse Name: Maeve Sanon RN Position: [facility] RN Member Role: Primary Care Nurse Name: Arian Mendoza RN Position: [facility] SN RN Member Role: Primary Care Nurse Name: Benson Macdonald MD Position: [facility] Outreach Member Role: PCP Address: [address] [place] [id number] Telecom: Name: Rohini Knight RN Position: [facility] RN Member Role: Primary Care Nurse Name: Nataly Arrington RN Position: [facility] RN Member Role: Primary Care Nurse Name: Anabell Beard RN Position: [facility] RN Member Role: Primary Care Nurse Name: Lucia Luke RN Position: [facility] RN Member Role: Primary Care Nurse Name: Kendra Ruiz RN Position: [facility] RN Member Role: Primary Care Nurse Name: Karuna Limon RN Position: [facility] RN Member Role: Primary Care Nurse Name: Eunice Shannon RN Position: [facility] RN Member Role: Primary Care Nurse Name: Aly Maria Jr, RN Position: [facility] ED RN W/OE and Tasks Member Role: Primary Care Nurse Name: Arabella Cabrera RN Position: [facility] RN Member Role: Primary Care Nurse Name: Dilcia Quintanilla RN Position: [facility] RN Member Role: Primary Care Nurse Name: Mattie Melo RN Position: [facility] Outreach Member Role: Primary Care Nurse Name: Conor Park RN Position: [facility] RN Member Role: Primary Care Nurse Name: Salma Jalloh RN Position: [facility] RN Supv Member Role: Primary Care Nurse Name: Roma Reyes RN Position: [facility] RN Member Role: Primary Care Nurse Name: Janelle Uriostegui RN Position: [facility] RN Member Role: Primary Care Nurse Name: Cindy Meza RN Position: [facility] Hospital Cultural Historian Member Role: Primary Care Nurse Care Team Related Persons Name: OLIVA WILBURN Name: ALEXANDER DOMINIQUE Insurance Providers Guarantor name: HUNG DOMINIQUE Health Plan Information #: 2 Payer: [employer] Member Number: [id number] Policy Number: NA Group Number: NA Health Plan Information #: 1 Payer: MEDICARE PART B OUTPT Member Number: [id number] Policy Number: NA Group Number: NA
--- OUTSIDE RECORDS SUMMARY | 2024-06-16 02:36 | XMS_ITS | Continuity of Care Document ---
Author Organization [facility] Address [address] [place] [address]- Care Team Providers Care Quality Assurance Clerk Name Role Phone Benson Macdonald MD Primary Care Physician Encounter [facility] Date(s): 05/05/24 - 06/04/24 [facility] [address] [place], [place] [address] Attending Physician: Dee Leung Admitting Physician: Dee Leung Referring Physician: Dee Leung Encounter Type: Triage Allergies, Adverse Reactions, Alerts Substance Criticality Severity Reaction Reaction Severity Status erythromycin Drug-induced na usea and vomiting Active penicillin Rash Active lisinopril Angioedema Active Biaxin Rash Active sulfa drugs EVERETT - Difficult y in breathing Active Zofran elongation of QT Act naila Tagamet Bilateral weakn ess of legs Active Ultram Nausea Active Bee Stings swelling Active Toprol-XL Depressed Active Nuts diarrhea Hazelnut Active TraZODONE Hydrochloride Nausea Active cloNIDine Tremors Neurological Active Immunizations Given and Recorded Vaccine Date Status Refusal Reason influenza virus vaccine, inactivated 10/04/23 Give n Medications aspirin 81 mg oral delayed release tablet 81 mg, By Mouth, Daily, # 30 tablet, Refills 11, Tot. Refills 11, Maintenance, 10/07/23 8:20:00 AM EDT, Route to Pharmacy Electronically, [facility]/pharmacy #[id number], Partial fill upon patient request [...] Refills, Maintenance, 03/12/22 4:08:00 PM EDT, Tablet, [facility], Partial fill upon patient request if the prescription is for aschedule II opioid drug., 153, cm, 01/19/22 17:41:00 EDT, Height, 50, kg, 01/19/22 13:01:00 EDT, Dry Weight Start Date: 03/12/22 Status: Ordered Quantity: 30.0 Unit: tablet Repeat number: 6 [place] Saline Mist 0.65% nasal spray 1 sprays, [...] Refills, Maintenance, 12/22/19 3:24:00 PM EDT, Tablet, [facility], 1 tablet By Mouth Daily, [...] Details, Rou te [id number] Partial fill upon patient request if [...] 2:56:00 PM EDT, Route to Pharmacy Electronically, [facility], Partial fill upon patient request [...] Refills, Maintenance, 05/16/24 8:00:00 PM EST, Tablet, [facility]/pharmacy #[id number], Partial fill upon patient request if the [...] MRI Safety Implantable Status Assigning Authority Unknown [id number] Unknown Unknown 02/03/21 Unknown Unknown Active Unknown [facility] [id number] [facility] 12/03/21 Unknown Unknown Active Unkn own Procedure Provider Procedure Date Device Type Site Phacoemulsification Cataract with Jet Perez MD 06/20/20 Unknown Eye Right Device Identifier Serial Number Lot or Batch Number Manufacturing Date Expiration Date Distinct Identification Code MRI Safety Implantable Status Assigning Authority Unknown [id number] Unknown Unknown 07/06/20 Unknown Unknown Active Unknown Patient Care team information Care Team Personnel Name: Jasmin Richards RN Position: [facility] RN Member Role: Primary Care Nurse Name: Mer Montague Position: [facility] RN Supv Member Role: Primary Care Nurse Name: Osmani Pride RN Position: [facility] RN Member Role: Primary Care Nurse Name: Galina Mistry RN Position: [facility] RN Member Role: Primary Care Nurse Name: Ashley Reza RN Position: [facility] ED RN W/OE and Tasks Member Role: Primary Care Nurse Name: Nadeem Kohli MD Position: [facility] Cardiology MD Member Role: Lifetime Consulting Physician Address: [address] [place] [address] [address] [place] [address]- Telecom: Name: Arabella Baez RN Position: [facility] RN Member Role: Primary Care Nurse Name: Domenic Guillaume RN Position: [facility] RN Member Role: Primary Care Nurse Name: Cameron Melo RN Position: [facility] RN Member Role: Primary Care Nurse Name: Arsenio White RN Position: [facility] RN Member Role: Primary Care Nurse Name: Jaime Ramos RN Position: [facility] Outreach Member Role: Primary Care Nurse Name: Cony Schwartz RN Position: [facility] RN Member Role: Primary Care Nurse Name: Maeve Sanon RN Position: [facility] RN Member Role: Primary Care Nurse Name: Arian Mendoza RN Position: [facility] SN RN Member Role: Primary Care Nurse Name: Benson Macdonald MD Position: [facility] Outreach Member Role: PCP Address: [address] [place] [address]- Telecom: Name: Rohini Knight RN Position: [facility] RN Member Role: Primary Care Nurse Name: Nataly Arrington RN Position: [facility] RN Member Role: Primary Care Nurse Name: Anabell Beard RN Position: [facility] RN Member Role: Primary Care Nurse Name: Lucia Luke RN Position: [facility] RN Member Role: Primary Care Nurse Name: Kendra Ruiz RN Position: [facility] RN Member Role: Primary Care Nurse Name: Karuna Limon RN Position: [facility] RN Member Role: Primary Care Nurse Name: Eunice Shannon RN Position: [facility] RN Member Role: Primary Care Nurse Name: Aly Maria Jr, RN Position: [facility] ED RN W/OE and Tasks Member Role: Primary Care Nurse Name: Arabella Cabrera RN Position: [facility] RN Member Role: Primary Care Nurse Name: Dilcia Quintanilla RN Position: [facility] RN Member Role: Primary Care Nurse Name: Mattie Melo RN Position: [facility] Outreach Member Role: Primary Care Nurse Name: Conor Park RN Position: [facility] RN Member Role: Primary Care Nurse Name: Salma Jalloh RN Position: [facility] RN Supv Member Role: Primary Care Nurse Name: Roma Reyes RN Position: [facility] RN Member Role: Primary Care Nurse Name: Janelle Uriostegui RN Position: [facility] RN Member Role: Primary Care Nurse Name: Cindy Meza RN Position: [facility] Site Auditor Member Role: Primary Care Nurse Care Team Related Persons Name: OLIVA WILBURN Name: ALEXANDER DOMINIQUE Insurance Providers Guarantor name: HUNG DOMINIQUE Health Plan Information #: 1 Payer: MEDICARE PART B OUTPT Member Number: NA Policy Number: NA Group Number: NA Health Plan Information #: 2 Payer: [facility] Member Number: NA Policy Number: NA Group Number: NA
--- OUTSIDE RECORDS SUMMARY | 2024-06-16 02:36 | XMS_ITS | Clinical Summary ---
Author Organization Unknown Care Team Providers Care Laborer Demolition Name Role Phone PEREZ OLIVEIRA, MARCO ANTONIO Unavailable Unavailable JOE SAMPLE MAKER ORIGINAL, CARLO Unavailable Unavailable MARLEN PT, DANIELA Unavailable Unavailable LUIS DE LA FUENTEN, BOBBI Unavailable Unavailable ASBRINA DICKENS, NUBIA Unavailable Unavailable Payers Payer Name Policy Type Policy Number Effective Date Expira tion Date MEDICARE.NGS.PDGM [id number] Problems Condition Name Condition Details Condition Category Status Onset Date Resolution Date Last Treatment Date Treating Clinician Comments INFECTION FOLLOWING A PROCEDURE, OTHER SURGICAL SITE, SUBS Active 9 00:00: 00 ENCNTR FOR SURGICAL AFTCR FOLLOWING SURGERY ON THE CIRC SYS Active 9- 00:00: 00 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, RIGHT LEG Active 9- 00:00: 00 HYPERTENSIVE HEART DISEASE WITH HEART FAILURE Active 8- 00:00: 00 UNSPECIFIED DIASTOLIC (CONGESTIVE) HEART FAILURE Active 1- 00:00: 00 AUTONOMIC DYSREFLEXIA Active 8- 00:00: 00 UNSPECIFIED CORD COMPRESSION Active 8- 00:00: 00 COMPLEX REGIONAL PAIN SYNDROME I, UNSPECIFIED Active 8-02 00:00: 00 GASTROPARESI S Active 8-02 00:00: 00 DYSPHAGIA, UNSPECIFIED Active 8-02 00:00: 00 OTHER CHRONIC PAIN Active 1- 00:00: 00 FIBROMYALGIA Active 1- 00:00: 00 SCIATICA, UNSPECIFIED SIDE Active 1- 00:00: 00 Irritable bowel syndrome, unspecified Active 1- 00:00: 00 HYPERLIPIDEM IA, UNSPECIFIED Active 1- 00:00: 00 PRESENCE OF PROSTHETIC HEART VALVE Active 8- 00:00: 00 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 Propensity to adverse reactions Active 02-06 19:25: 12 CLONIDINE Propensity to adverse reactions Active 02-06 19:25: 38 LISINOPRIL Propensity to adverse reactions Active 02-06 19:25: 49 PCN, SULFA Propensity to adverse reactions Active 02-06 19:26: 01 Medications Ordered Medication Name Filled Medication Name Start Date Stop Date Current Medication? Ordering Clinician Indication Dosage Frequency Signature (SIG) Comments Components 24 Hour Allergy Relief 50 mcg/actuati on nasal spray,suspe nsion 920 00:00: 00 01-13 23:59 :00 No [id number] 1 spray DAILY 1 spray DAILY (route: nasal) Med Classific ation: Respirato ry Therapy Agents acetaminoph en 160 mg/5 mL (5 mL) oral solution 10-08 00:00: 00 03-22 00:00 :00 No [id number] 20 mL 3 times daily 20 mL 3 times daily (route: oral) Med Classific ation: Analgesic , Anti-infl ammatory or Antipyret ic albuterol sulfate HFA 90 mcg/actuati on aerosol inhaler 10-08 00:00: 00 01-13 23:59 :00 No [id number] 2 puff NEEDED 2 puff NEEDED (route: inhalation ) Med Classific ation: Respirato ry Therapy Agents alprazolam 1 mg tablet 11-04 00:00: 00 01-13 23:59 :00 No [id number] 0.5 tablet TWICE DAILY 0.5 tablet TWICE DAILY (route: oral) Alternate Route: BY MOUTH. Med Classific ation: Central Nervous System Agents alprazolam 1 mg tablet 11-26 00:00: 00 01-13 23:59 :00 No [id number] 1 tablet NEEDED 1 tablet NEEDED (route: oral) Med Classific ation: Central Nervous System Agents amitriptyli ne 10 mg tablet 5-23 00:00: 00 03-22 00:00 :00 No [id number] 3 tablet NEEDED 3 tablet NEEDED (route: oral) Alternate Route: PEG TUBE. Med Classific ation: Central Nervous System Agents amitriptyli ne 10 mg tablet 03-26 00:00: 00 01-13 23:59 :00 No [id number] 3 tablet DAILY 3 tablet DAILY (route: oral) Med Classific ation: Central Nervous System Agents amlodipine 10 mg tablet 03-26 00:00: 00 01-13 23:59 :00 No [id number] 1 tablet DAILY 1 tablet DAILY (route: oral) Med Classific ation: Cardiovas cular Therapy Agents amlodipine 5 mg tablet 2-14 00:00: 00 03-22 00:00 :00 No [id number] 1 tablet ONCE DAILY 1 tablet ONCE DAILY (route: oral) Alternate Route: PEG TUBE. Med Classific ation: Cardiovas cular Therapy Agents carisoprodo l 350 mg tablet 03-26 00:00: 00 01-13 23:59 :00 No [id number] 1 tablet DAILY 1 tablet DAILY (route: oral) Med Classific ation: Locomotor System carisoprodo l 350 mg tablet 11-26 00:00: 00 03-22 00:00 :00 No [id number] 1 tablet NEEDED 1 tablet NEEDED (route: oral) Alternate Route: PEG TUBE. Med Classific ation: Locomotor System carvedilol 3.125 mg tablet -20 00:00: 00 01-13 23:59 :00 No [id number] 1 tablet 2 TIMES DAILY 1 tablet 2 TIMES DAILY (route: oral) Med Classific ation: Cardiovas cular Therapy Agents carvedilol 3.125 mg tablet 2018-07 2-30 00:00: 00 03-22 00:00 :00 No [id number] 1 tablet TWICE DAILY 1 tablet TWICE DAILY (route: oral) Alternate Route: PEG TUBE. Med Classific ation: Cardiovas cular Therapy Agents fluticasone propionate 100 mcg/actuati on blister powder for inhalation 10-08 00:00: 03-22 00:00 :00 No [id number] 1 inhalat ion At bedtime 1 inhalation At bedtime (route: inhalation ) Med Classific ation: Respirato ry Therapy Agents hydromorpho ne 1 mg/mL oral liquid 10-08 00:00: 03-22 00:00 :00 No [id number] 2 mL 4 TIMES DAILY 2 mL 4 TIMES DAILY (route: oral) Alternate Route: GASTROSTO MY TUBE. Med Classific ation: Analgesic , Anti-infl ammatory or Antipyret ic hydromorpho ne 2 mg tablet 03-26 00:00: 00 01-13 23:59 :00 No [id number] 1 tablet EVERY 6 HOURS 1 tablet EVERY 6 HOURS (route: oral) Med Classific ation: Analgesic , Anti-infl ammatory or Antipyret ic melatonin 3 mg tablet 10-08 00:00: 00 01-13 23:59 :00 No [id number] 1 tablet At bedtime 1 tablet At bedtime (route: oral) Med Classific ation: Central Nervous System Agents metoclopram gianluca 10 mg tablet 10-08 00:00: 00 03-22 00:00 :00 No [id number] 1 tablet 3 TIMES DAILY 1 tablet 3 TIMES DAILY (route: oral) Med Classific ation: Gastroint estinal Therapy Agents Miralax 17 gram/dose oral powder 6-12 00:00: 00 01-13 23:59 :00 No [id number] 17 gram DAILY 17 gram DAILY (route: oral) Med Classific ation: Gastroint estinal Therapy Agents multivitami n tablet 4 00:00: 03-22 00:00 :00 No [id number] 1 tablet Daily 1 tablet Daily (route: oral) Med Classific ation: Electroly te Balance-N utritiona l Products multivitami n tablet 9-20 00:00: 01-13 23:59 :00 No [id number] 1 tablet DAILY 1 tablet DAILY (route: oral) Med Classific ation: Electroly te Balance-N utritiona l Products pantoprazol e 40 mg tablet,effie yed release 12-16 00:00: 00 01-13 23:59 :00 No [id number] 1 tablet DAILY 1 tablet DAILY (route: oral) Med Classific ation: Gastroint estinal Therapy Agents Senna Plus 8.6 mg-50 mg tablet 12-16 00:00: 00 01-13 23:59 :00 No [id number] 1 tablet DAILY 1 tablet DAILY (route: oral) Med Classific ation: Gastroint estinal Therapy Agents Vitamin D3 50 mcg (2,000 unit) capsule 12-21 00:00: 00 01-13 23:59 :00 No [id number] 1 capsule DAILY 1 capsule DAILY (route: oral) Med Classific ation: Electroly te Balance-N utritiona l Products Xifaxan 550 mg tablet 2019-07 014 00:00: 00 05-03 23:59 :00 No [id number] 1 tablet 3 TIMES DAILY 1 tablet 3 TIMES DAILY (route: oral) Med Classific ation: Anti-Infe ctive Agents hydralazine 25 mg tablet 2019-07 00:00: 00 01-13 23:59 :00 No [id number] 1 tablet 4 TIMES DAILY 1 tablet 4 TIMES DAILY (route: oral) Med Classific ation: Cardiovas cular Therapy Agents senna 8.6 mg tablet 01-10 00:00: 00 08-18 23:59 :00 No [id number] DIRECTED Per instruc tions ONCE DAILY NEEDED Per instructio ns ONCE DAILY NEEDED (route: oral) Med Classific ation: Gastroint estinal Therapy Agents alprazolam 1 mg tablet 01-09 00:00: 00 01-15 23:59 :00 No [id number] DIRECTED Per instruc tions EVERY DAY FOR 30 DAYS Per instructio ns EVERY DAY FOR 30 DAYS (route: oral) Med Classific ation: Central Nervous System Agents carisoprodo l 350 mg tablet 01-09 00:00: 00 01-15 23:59 :00 No [id number] DIRECTED Per instruc tions FOUR TIMES A DAY NEEDED FOR 30 DAYS Per instructio ns FOUR TIMES A DAY NEEDED FOR 30 DAYS (route: oral) Med Classific ation: Locomotor System hydralazine 25 mg tablet 7-06 00:00: 00 08-18 23:59 :00 No [id number] DIRECTED Per instruc tions ONCE DAILY NEEDED Per instructio ns ONCE DAILY NEEDED (route: oral) Med Classific ation: Cardiovas cular Therapy Agents hydrocodone 5 mg-acetamin ophen 325 mg tablet 01-09 00:00: 00 01-15 23:59 :00 No [id number] DIRECTED Per instruc tions EVERY 12 HOURS NEEDED Per instructio ns EVERY 12 HOURS NEEDED (route: oral) Med Classific ation: Analgesic , Anti-infl ammatory or Antipyret ic atorvastati n 40 mg tablet 01-08 00:00: 00 01-15 23:59 :00 No [id number] DIRECTED Per instruc tions EVERYDAY AT BEDTIME Per instructio ns EVERYDAY AT BEDTIME (route: oral) Med Classific ation: Cardiovas cular Therapy Agents hydrocodone 5 mg-acetamin ophen 325 mg tablet 12-26 00:00: 00 01-15 23:59 :00 No [id number] DIRECTED Per instruc tions NEEDED EVERY 12 HOURS Per instructio ns NEEDED EVERY 12 HOURS (route: oral) Med Classific ation: Analgesic , Anti-infl ammatory or Antipyret ic metoclopram gianluca 5 mg/5 mL oral solution 12-26 00:00: 00 01-15 23:59 :00 No [id number] DIRECTED Per instruc tions GASTROSTOM Y TUBE 3 TIMES A DAY 30 DAYS Per instructio ns GASTROSTOM Y TUBE 3 TIMES A DAY 30 DAYS (route: oral) Med Classific ation: Gastroint estinal Therapy Agents atorvastati n 40 mg tablet 12-11 00:00: 00 08-18 23:59 :00 No [id number] DIRECTED Per instruc tions EVERYDAY AT BEDTIME Per instructio ns EVERYDAY AT BEDTIME (route: oral) Med Classific ation: Cardiovas cular Therapy Agents carisoprodo l 350 mg tablet 6-06 00:00: 00 08-18 23:59 :00 No [id number] PAIN 1 tablet 3 TIMES DAILY 1 tablet 3 TIMES DAILY (route: oral) Med Classific ation: Locomotor System alprazolam 1 mg tablet 12-07 00:00: 00 01-15 23:59 :00 No [id number] DIRECTED Per instruc tions EVERY DAY FOR 30 DAYS Per instructio ns EVERY DAY FOR 30 DAYS (route: oral) Med Classific ation: Central Nervous System Agents hydrocodone 5 mg-acetamin ophen 325 mg tablet 12-07 00:00: 00 01-15 23:59 :00 No [id number] DIRECTED Per instruc tions EVERY 12 HOURS NEEDED Per instructio ns EVERY 12 HOURS NEEDED (route: oral) Med Classific ation: Analgesic , Anti-infl ammatory or Antipyret ic metoclopram gianluca 5 mg/5 mL oral solution 5-19 00:00: 00 08-18 23:59 :00 No [id number] DIRECTED Per instruc tions GASTROSTOM Y TUBE 3 TIMES A DAY 30 DAYS Per instructio ns GASTROSTOM Y TUBE 3 TIMES A DAY 30 DAYS (route: oral) Med Classific ation: Gastroint estinal Therapy Agents baclofen 10 mg tablet 5-14 00:00: 00 01-15 23:59 :00 No [id number] DIRECTED Per instruc tions TWICE A DAY NEEDED FOR 30 DAYS Per instructio ns TWICE A DAY NEEDED FOR 30 DAYS (route: oral) Med Classific ation: Locomotor System carvedilol 3.125 mg tablet 4-26 00:00: 00 08-18 23:59 :00 No [id number] DIRECTED Per instruc tions TWICE DAILY Per instructio ns TWICE DAILY (route: oral) Med Classific ation: Cardiovas cular Therapy Agents amlodipine 5 mg tablet 4-23 00:00: 00 08-18 23:59 :00 No [id number] DIRECTED Per instruc tions EVERY Per instructio ns EVERY (route: oral) Med Classific ation: Cardiovas cular Therapy Agents hydrocodone 5 mg-acetamin ophen 300 mg tablet 01-15 00:00: 00 01-15 23:59 :00 No [id number] DIRECTED 1 tablet EVERY 6 HOURS 1 tablet EVERY 6 HOURS (route: oral) Med Classific ation: Analgesic , Anti-infl ammatory or Antipyret ic Tylenol Extra Strength 500 mg tablet 01-15 00:00: 00 08-18 23:59 :00 No [id number] DIRECTED 1-2 tablet EVERY 6 HOURS 1-2 tablet EVERY 6 HOURS (route: oral) Med Classific ation: Analgesic , Anti-infl ammatory or Antipyret ic Colace 100 mg capsule 01-15 00:00: 00 08-18 23:59 :00 No [id number] CONSTIPATIO N 1 capsule 2 TIMES DAILY 1 capsule 2 TIMES DAILY (route: oral) Med Classific ation: Gastroint estinal Therapy Agents Lasix 20 mg tablet 01-15 00:00: 00 08-18 23:59 :00 No [id number] DIURETIC 1 tablet DAILY 1 tablet DAILY (route: oral) Med Classific ation: Cardiovas cular Therapy Agents melatonin 5 mg tablet 01-15 00:00: 00 08-18 23:59 :00 No [id number] INSOMNIA 1 tablet DAILY 1 tablet DAILY (route: oral) Med Classific ation: Central Nervous System Agents Xanax 0.5 mg tablet 01-15 00:00: 00 08-18 23:59 :00 No [id number] ANXIETY 1 tablet 2 TIMES DAILY 1 tablet 2 TIMES DAILY (route: oral) Med Classific ation: Central Nervous System Agents [id number] 100 gram-sod sulf 7.5 gram-NaCl-K Cl-ascorbat e-C oral pwdr pack 2-11 00:00: 00 10-06 23:59 :00 No [id number] DIRECTED Per instruc tions DAILY Per instructio ns DAILY (route: oral) Med Classific ation: Gastroint estinal Therapy Agents gabapentin 100 mg capsule 2-05 00:00: 00 02-04 23:59 :00 No [id number] PAIN 1 capsule 2 TIMES DAILY 1 capsule 2 TIMES DAILY (route: oral) Med Classific ation: Central Nervous System Agents hydrocodone 5 mg-acetamin ophen 325 mg tablet 2-05 00:00: 00 08-27 14:39 :30.2 6 No [id number] PAIN Per instruc tions EVERY 8 HOURS NEEDED FOR 30 DAYS Per instructio ns EVERY 8 HOURS NEEDED FOR 30 DAYS (route: oral) Med Classific ation: Analgesic , Anti-infl ammatory or Antipyret ic mirtazapine 7.5 mg tablet - 00:00: 00 02-04 23:59 :00 No [id number] ANXIETY 1 tablet DAILY 1 tablet DAILY (route: oral) Med Classific ation: Central Nervous System Agents amlodipine 5 mg tablet 1-25 00:00: 00 02-04 23:59 :00 No [id number] BP 0.5 tablet DAILY 0.5 tablet DAILY (route: oral) Med Classific ation: Cardiovas cular Therapy Agents hydrocodone 5 mg-acetamin ophen 325 mg tablet 1-22 00:00: 00 08-27 14:39 :34.3 27 No [id number] PAIN Per instruc tions EVERY 8 HOURS NEEDED INSURANCE MAX OF 7 DAYS Per instructio ns EVERY 8 HOURS NEEDED INSURANCE MAX OF 7 DAYS (route: oral) Med Classific ation: Analgesic , Anti-infl ammatory or Antipyret ic carvedilol 3.125 mg tablet 1-20 00:00: 00 02-04 23:59 :00 No [id number] BP 1 tablet 2 TIMES DAILY 1 tablet 2 TIMES DAILY (route: oral) Med Classific ation: Cardiovas cular Therapy Agents hydroxyzine HCl 10 mg tablet 1-17 00:00: 00 02-04 23:59 :00 No [id number] ANXIETY/TONA SEA 1 tablet 3 TIMES DAILY 1 tablet 3 TIMES DAILY (route: oral) Med Classific ation: Central Nervous System Agents alprazolam 0.5 mg disintegrat ing tablet 08-25 00:00: 00 02-04 23:59 :00 No [id number] ANXIETY 1 tablet EVERY 6 HOURS 1 tablet EVERY 6 HOURS (route: oral) Med Classific ation: Central Nervous System Agents atorvastati n 40 mg tablet 08-25 00:00: 00 02-04 23:59 :00 No [id number] CHOLESTEROL 1 tablet DAILY 1 tablet DAILY (route: oral) Med Classific ation: Cardiovas cular Therapy Agents carisoprodo l 350 mg tablet 08-25 00:00: 00 02-04 23:59 :00 No [id number] MUSCLE RELAXER 1 tablet 3 TIMES DAILY 1 tablet 3 TIMES DAILY (route: oral) Med Classific ation: Locomotor System cholecalcif lucero (vitamin D3) 50 mcg (2,000 unit) capsule 08-25 00:00: 00 02-04 23:59 :00 No [id number] SUPPLEMENT 1 capsule DAILY 1 capsule DAILY (route: oral) Med Classific ation: Electroly te Balance-N utritiona l Products famotidine 40 mg tablet 08-25 00:00: 00 02-04 23:59 :00 No [id number] REFLUX 1 tablet DAILY 1 tablet DAILY (route: oral) Med Classific ation: Gastroint estinal Therapy Agents hydralazine 25 mg tablet 08-25 00:00: 00 10-11 23:59 :00 No [id number] BP 1 tablet DAILY 1 tablet DAILY (route: oral) Med Classific ation: Cardiovas cular Therapy Agents isosorbide mononitrate 20 mg tablet 08-25 00:00: 00 02-04 23:59 :00 No [id number] CHEST PAIN 1 tablet DAILY 1 tablet DAILY (route: oral) Med Classific ation: Cardiovas cular Therapy Agents metoclopram gianluca 10 mg tablet 08-25 00:00: 00 02-04 23:59 :00 No [id number] ANXIETY 1 tablet 3 TIMES DAILY 1 tablet 3 TIMES DAILY (route: oral) Med Classific ation: Gastroint estinal Therapy Agents senna 8.6 mg capsule 2-19 00:00: 00 02-04 23:59 :00 No [id number] CONSTIPATIO N 1 capsule DAILY 1 capsule DAILY (route: oral) Med Classific ation: Gastroint estinal Therapy Agents Tylenol Extra Strength 500 mg tablet 2-19 00:00: 00 02-04 23:59 :00 No [id number] PAIN 1-2 tablet EVERY 6 HOURS 1-2 tablet EVERY 6 HOURS (route: oral) Med Classific ation: Analgesic , Anti-infl ammatory or Antipyret ic aspirin 81 mg tablet,effie yed release 10-06 00:00: 00 02-04 23:59 :00 No [id number] ANTICOAGULA NT 1 tablet DAILY 1 tablet DAILY (route: oral) Med Classific ation: Hematolog ical Agents hydrocodone 5 mg-acetamin ophen 300 mg tablet 3-05 00:00: 00 02-04 23:59 :00 No [id number] MODERATE PAIN 1-2 tablet EVERY 6 HOURS 1-2 tablet EVERY 6 HOURS (route: oral) Med Classific ation: Analgesic , Anti-infl ammatory or Antipyret ic hydralazine 25 mg tablet 07 00:00: 00 02-04 23:59 :00 No [id number] ELEVATED BP 1-2 tablet DAILY 1-2 tablet DAILY (route: oral) Med Classific ation: Cardiovas cular Therapy Agents mirtazapine 7.5 mg tablet 02-01 00:00: 00 Yes [id number] ANTIDEPRESS ANT 7.5 mg BEDTIME 7.5 mg BEDTIME (route: oral) Med Classific ation: Central Nervous System Agents carisoprodo l 350 mg tablet 01-29 00:00: 00 Yes [id number] MUSCLE SPASMS 300 mg NEEDED 3 TIMES A DAY 300 mg NEEDED 3 TIMES A DAY (route: oral) Med Classific ation: Locomotor System carvedilol 12.5 mg tablet 01-25 00:00: 00 03-10 23:59 :00 No [id number] HTN 12.5 mg EVERY AM 12.5 mg EVERY AM (route: oral) Med Classific ation: Cardiovas cular Therapy Agents gabapentin 100 mg capsule 01-25 00:00: 00 Yes [id number] NERVE PAIN 100 mg MORNING IN THE EVENING ( TWICE A DAY 100 mg MORNING IN THE EVENING ( TWICE A DAY (route: oral) Med Classific ation: Central Nervous System Agents cyclobenzap rine 10 mg tablet 01-15 00:00: 00 02-06 00:00 :00 No [id number] Per instruc tions THREE TIMES A DAY NEEDED Per instructio ns THREE TIMES A DAY NEEDED (route: oral) Med Classific ation: Locomotor System hydrocodone 5 mg-acetamin ophen 325 mg tablet 01-15 00:00: 00 02-06 00:00 :00 No [id number] Per instruc tions EVERY 8 HOURS NEEDED FOR 30 DAYS Per instructio ns EVERY 8 HOURS NEEDED FOR 30 DAYS (route: oral) Med Classific ation: Analgesic , Anti-infl ammatory or Antipyret ic carvedilol 3.125 mg tablet 01-13 00:00: 00 06-02 23:59 :00 No [id number] HTN 3.125 mg BEDTIME 3.125 mg BEDTIME (route: oral) Med Classific ation: Cardiovas cular Therapy Agents aspirin 81 mg tablet,effie yed release 02-06 00:00: 00 Yes [id number] NSAID 81 mg DAILY 81 mg DAILY (route: oral) Med Classific ation: Hematolog ical Agents hydralazine 25 mg tablet 02-06 00:00: 00 Yes [id number] HTN 25 mg DAILY 25 mg DAILY (route: oral) Med Classific ation: Cardiovas cular Therapy Agents isosorbide dinitrate 30 mg tablet 02-06 00:00: 00 Yes [id number] PREVENTS ANGINA 30 mg BEDTIME 30 mg BEDTIME (route: oral) Med Classific ation: Cardiovas cular Therapy Agents Lipitor 40 mg tablet 02-06 00:00: 00 Yes [id number] HIGH CHOLESTEROL 40 mg BEDTIME 40 mg BEDTIME (route: oral) Med Classific ation: Cardiovas cular Therapy Agents mirtazapine 7.5 mg tablet 02-06 00:00: 00 03-16 00:00 :00 No [id number] INSOMNIA 7.5 mg BEDTIME 7.5 mg BEDTIME (route: oral) Med Classific ation: Central Nervous System Agents Multia Daily Multivitami n 4.5 mg iron-500 mcg capsule 02-06 00:00: 00 Yes [id number] SUPPLEMENT 1 capsule DAILY 1 capsule DAILY (route: oral) Med Classific ation: Electroly te Balance-N utritiona l Products oxycodone 5 mg capsule 02-06 00:00: 00 Yes [id number] PAIN 5 mg EVERY 4 HOURS 5 mg EVERY 4 HOURS (route: oral) Med Classific ation: Analgesic , Anti-infl ammatory or Antipyret ic Pepcid 40 mg tablet 02-06 00:00: 00 Yes [id number] GERD 40 mg 2 TIMES DAILY 40 mg 2 TIMES DAILY (route: oral) Med Classific ation: Gastroint estinal Therapy Agents senna leaf extract 176 mg/5 mL oral syrup 02-06 00:00: 00 Yes [id number] CONSTIPATIO N 5 mL DAILY 5 mL DAILY (route: oral) Med Classific ation: Gastroint estinal Therapy Agents Vitamin D3 50 mcg (2,000 unit) capsule 02-06 00:00: 00 Yes [id number] SUPPLEMENT 2000 mcg DAILY 2000 mcg DAILY (route: oral) Med Classific ation: Electroly te Balance-N utritiona l Products Xanax 0.5 mg tablet 02-06 00:00: 00 Yes [id number] ANXIETY 0.5 mg 2 TIMES DAILY 0.5 mg 2 TIMES DAILY (route: oral) Med Classific ation: Central Nervous System Agents cilostazol 50 mg tablet 02-17 00:00: 00 03-22 23:59 :00 No [id number] INCREASE BLOOD FLOW IN LEGS 1 tablet 2 TIMES DAILY 1 tablet 2 TIMES DAILY (route: oral) Med Classific ation: Hematolog ical Agents doxycycline hyclate 100 mg capsule 18 00:00: 00 03-02 23:59 :00 No [id number] RIGHT GROIN INFECTION 1 capsule 2 TIMES DAILY 1 capsule 2 TIMES DAILY (route: oral) Med Classific ation: Anti-Infe ctive Agents atorvastati n 40 mg tablet 03-08 00:00: 00 Yes [id number] CHOLESTEROL 1 tablet BEDTIME 1 tablet BEDTIME (route: oral) Med Classific ation: Cardiovas cular Therapy Agents cephalexin 500 mg capsule 03-21 00:00: 00 03-26 23:59 :00 No [id number] GROIN INCISION 1 capsule EVERY 12 HOURS 1 capsule EVERY 12 HOURS (route: oral) Med Classific ation: Anti-Infe ctive Agents carvedilol 12.5 mg tablet 03-10 00:00: 00 Yes [id number] BP 1 tablet DAILY 1 tablet DAILY (route: oral) Med Classific ation: Cardiovas cular Therapy Agents carvedilol 12.5 mg tablet 2023-07 00:00: 00 Yes [id number] HEART 1 tablet 2 TIMES DAILY 1 tablet 2 TIMES DAILY (route: oral) Med Classific ation: Cardiovas cular Therapy Agents Immunizations Ordered Immunization Name Filled Immunization Name Date Status Comments Refusal Reason INFLUENZA, TIV (INACTIVATED) 2023-09-28 00:00:00 BOOSTER -COVID-19 VACCINE, COVID-19 VACCINE 2021-09-19 00:00:00 SINGLE DOSE REGIMEN, COVID-19 VACCINE 2021-03-09 00:00:00 Vital Signs Vital Name Observation Time Observation Value Commen ts Temperature 2024-06-02 11:45:00.000 97.1 [degF] Temperature 2024-05-25 20:07:00.000 97.5 [degF] Temperature 2024-05-19 12:33:00.000 97.7 [degF] Temperature 2024-05-12 11:29:00.000 97.7 [degF] Temperature 2024-05-04 12:12:00.000 97.6 [degF] Temperature 2024-04-27 14:17:00.000 97.3 [degF] Temperature 2024-04-20 11:00:00.000 98.5 [degF] Temperature 2024-04-14 12:10:00.000 97.3 [degF] Temperature 2024-04-12 12:16:00.000 97.6 [degF] Pulse 2024-06-02 11:45:00.000 72 /min Pulse 2024-05-25 20:07:00.000 74 /min Pulse 2024-05-19 12:33:00.000 76 /min Pulse 2024-05-12 11:29:00.000 63 /min Pulse 2024-05-04 12:12:00.000 71 /min Pulse 2024-04-27 14:17:00.000 70 /min Pulse 2024-04-20 11:00:00.000 65 /min Pulse 2024-04-14 12:10:00.000 68 /min Pulse 2024-04-12 12:16:00.000 84 /min O2 Saturation (%) 2024-06-02 11:45:00.000 97 % O2 Saturation (%) 2024-05-25 20:08:00.000 96 % O2 Saturation (%) 2024-05-19 12:33:00.000 98 % O2 Saturation (%) 2024-05-12 11:29:00.000 98 % O2 Saturation (%) 2024-05-04 12:12:00.000 97 % O2 Saturation (%) 2024-04-27 14:17:00.000 97 % O2 Saturation (%) 2024-04-20 11:00:00.000 98 % O2 Saturation (%) 2024-04-14 12:10:00.000 100 % Respirations 2024-06-02 11:45:00.000 18 /min Respirations 2024-05-25 20:07:00.000 18 /min Respirations 2024-05-19 12:33:00.000 16 /min Respirations 2024-05-12 11:29:00.000 16 /min Respirations 2024-05-04 12:12:00.000 16 /min Respirations 2024-04-27 14:17:00.000 18 /min Respirations 2024-04-20 11:00:00.000 16 /min Respirations 2024-04-14 12:10:00.000 16 /min Respirations 2024-04-12 12:16:00.000 18 /min Weight (lbs) 2024-05-25 20:09:00.000 110 [lb_av] Weight (lbs) 2024-05-19 12:39:00.000 110 [lb_av] Weight (lbs) 2024-05-12 11:32:00.000 111 [lb_av] Weight (lbs) 2024-05-04 12:12:00.000 110 [lb_av] Weight (lbs) 2024-04-20 11:03:00.000 109 [lb_av] Weight (lbs) 2024-04-14 12:10:00.000 108 [lb_av] Weight (lbs) 2024-04-12 12:17:00.000 110 [lb_av] Systolic Blood Pressure 2024-06-02 11:45:00.000 138 mm [Hg] Systolic Blood Pressure 2024-05-25 20:07:00.000 180 mm [Hg] Systolic Blood Pressure 2024-05-19 12:33:00.000 142 mm [Hg] Systolic Blood Pressure 2024-05-12 11:29:00.000 150 mm [Hg] Systolic Blood Pressure 2024-05-04 12:12:00.000 126 mm [Hg] Systolic Blood Pressure 2024-04-27 14:17:00.000 132 mm [Hg] Systolic Blood Pressure 2024-04-20 11:00:00.000 134 mm [Hg] Systolic Blood Pressure 2024-04-14 12:10:00.000 136 mm [Hg] Systolic Blood Pressure 2024-04-12 12:16:00.000 138 mm [Hg] Diastolic Blood Pressure 2024-06-02 11:45:00.000 66 mm [Hg] Diastolic Blood Pressure 2024-05-25 20:07:00.000 78 mm [Hg] Diastolic Blood Pressure 2024-05-19 12:33:00.000 64 mm [Hg] Diastolic Blood Pressure 2024-05-12 11:29:00.000 70 mm [Hg] Diastolic Blood Pressure 2024-05-04 12:12:00.000 70 mm [Hg] Diastolic Blood Pressure 2024-04-27 14:17:00.000 70 mm [Hg] Diastolic Blood Pressure 2024-04-20 11:00:00.000 70 mm [Hg] Diastolic Blood Pressure 2024-04-14 12:10:00.000 70 mm [Hg] Diastolic Blood Pressure 2024-04-12 12:16:00.000 86 mm [Hg] Plan of Treatment Planned Activity Planned Date Details Comments Future Scheduled Test RN TO OBSE RVE, ASSESS, EVALUATE, AND DEVELOP AN INDIVIDUALIZED PLAN OF CARE. AGENCY MAY ACCEPT ORDERS FROM CONSULTING PHYSICIANS. REGISTERED NURSE TO OBSERVE AND ASSESS/LICENSED PRACTICAL NURSE TO OBSERVE FOR RISK FOR FALLS AND INSTRUCT IN FALL PREVENTION, HOME SAFETY, MEDICATION MANAGEMENT, INFECTION PREVENTION, AND NUTRITION MANAGEMENT. REGISTERED NURSE/LICENSED PRACTICAL NURSE MAY PERFORM O2 SATURATION LEVEL ON ADMISSION AND FOR RN TO ASSESS/WALLPAPER INSPECTOR AND SHIPPER TO OBSERVE PATIENT, WITH NOTIFICATION TO THE PHYSICIAN IF SATURATION IS 90% IN THE ABSENCE OF MORE SPECIFIC PARAMETERS FROM THE PHYSICIAN. AGENCY MAY PERFORM A RESUMPTION OF CARE VISIT FOLLOWING ANY HOSPITAL ADMISSION. REGISTERED NURSE/LICENSED PRACTICAL NURSE TO MONITOR CO-MORBID CONDITIONS LISTED ON THE PLAN OF CARE AND ANY NEW CONDITIONS THAT PRESENT THEMSELVES DURING THIS EPISODE TO IDENTIFY CHANGES AND INTERVENE TO MINIMIZE COMPLICATIONS. [code = RN TO OBSERVE, ASSESS, EVALUATE, AND DEVELOP AN INDIVIDUALIZED PLAN OF CARE. AGENCY MAY ACCEPT ORDERS FROM CONSULTING PHYSICIANS. REGISTERED NURSE TO OBSERVE AND ASSESS/LICENSED PRACTICAL NURSE TO OBSERVE FOR RISK FOR FALLS AND INSTRUCT IN FALL PREVENTION, HOME SAFETY, MEDICATION MANAGEMENT, INFECTION PREVENTION, AND NUTRITION MANAGEMENT. REGISTERED NURSE/LICENSED PRACTICAL NURSE MAY PERFORM O2 SATURATION LEVEL ON ADMISSION AND FOR RN TO ASSESS/WALLPAPER INSPECTOR AND SHIPPER TO OBSERVE PATIENT, WITH NOTIFICATION TO THE PHYSICIAN IF SATURATION IS 90% IN THE ABSENCE OF MORE SPECIFIC PARAMETERS FROM THE PHYSICIAN. AGENCY MAY PERFORM A RESUMPTION OF CARE VISIT FOLLOWING ANY HOSPITAL ADMISSION. REGISTERED NURSE/LICENSED PRACTICAL NURSE TO MONITOR CO-MORBID CONDITIONS LISTED ON THE PLAN OF CARE AND ANY NEW CONDITIONS THAT PRESENT THEMSELVES DURING THIS EPISODE TO IDENTIFY CHANGES AND INTERVENE TO MINIMIZE COMPLICATIONS.] Future Scheduled Test RISK FOR H OSPITALIZATION; REGISTERED NURSE TO ASSESS /TEACH, LICENSED PRACTICAL NURSE TO OBSERVE/TEACH PATIENT/CAREGIVER ON RISK FOR HOSPITALIZATION/EMERGENCY ROOM VISITS, TEACH SIGNS AND SYMPTOMS THAT PUT PATIENT AT RISK, WHEN TO NOTIFY NURSE/PHYSICIAN OF COMPLICATIONS/DECLINE, AND WHEN TO CALL 911. [code = RISK FOR HOSPITALIZATION; REGISTERED NURSE TO ASSESS /TEACH, LICENSED PRACTICAL NURSE TO OBSERVE/TEACH PATIENT/CAREGIVER ON RISK FOR HOSPITALIZATION/EMERGENCY ROOM VISITS, TEACH SIGNS AND SYMPTOMS THAT PUT PATIENT AT RISK, WHEN TO NOTIFY NURSE/PHYSICIAN OF COMPLICATIONS/DECLINE, AND WHEN TO CALL 911.] Future Scheduled Test MEDICATION MANAGEMENT; REGISTERED NURSE/LICENSED PRACTICAL NURSE TO REVIEW MEDICATIONS FOR INTERACTIONS, EFFECTIVENESS OF DRUG THERAPY, AND SIGNS/SYMPTOMS OF ADVERSE REACTIONS. MAY INSTRUCT AND REINFORCE MEDICATION TEACHING RELATED TO THE USE OF MEDICATIONS, DOSAGE, FREQUENCY, PURPOSE, SIDE EFFECTS, AND TO REPORT COMPLICATIONS. [code = MEDICATION MANAGEMENT; REGISTERED NURSE/LICENSED PRACTICAL NURSE TO REVIEW MEDICATIONS FOR INTERACTIONS, EFFECTIVENESS OF DRUG THERAPY, AND SIGNS/SYMPTOMS OF ADVERSE REACTIONS. MAY INSTRUCT AND REINFORCE MEDICATION TEACHING RELATED TO THE USE OF MEDICATIONS, DOSAGE, FREQUENCY, PURPOSE, SIDE EFFECTS, AND TO REPORT COMPLICATIONS.] Future Scheduled Test REGISTERED NURSE/LICENSED PRACTICAL NURSE TO PERFORM/TEACH WOUND CARE TO RIGHT GROIN AREA: CLEANSE WITH WOUND CLEANSER OR SOAP AND WATER, PAT DRY. APPLY BETADINE PAINT, LET DRY. COVER WITH ROLLED 4?4 GAUZE, SECURE WITH TAPE, CHANGE DRESSING TWICE A DAY AND PRN FOR DISLODGEMENT. [code = REGISTERED NURSE/LICENSED PRACTICAL NURSE TO PERFORM/TEACH WOUND CARE TO RIGHT GROIN AREA: CLEANSE WITH WOUND CLEANSER OR SOAP AND WATER, PAT DRY. APPLY BETADINE PAINT, LET DRY. COVER WITH ROLLED 4?4 GAUZE, SECURE WITH TAPE, CHANGE DRESSING TWICE A DAY AND PRN FOR DISLODGEMENT. ] Future Scheduled Test PAIN MANAG EMENT; REGISTERED NURSE TO ASSESS AND TEACH/LICENSED PRACTICAL NURSE TO OBSERVE AND TEACH AND PROVIDE EDUCATION ON PAIN MANAGEMENT TECHNIQUES. [code = PAIN MANAGEMENT; REGISTERED NURSE TO ASSESS AND TEACH/LICENSED PRACTICAL NURSE TO OBSERVE AND TEACH AND PROVIDE EDUCATION ON PAIN MANAGEMENT TECHNIQUES.] Future Scheduled Test PHYSICAL T HERAPIST TO EVALUATE FOR STRENGTH AND ENDURANCE [code = PHYSICAL THERAPIST TO EVALUATE FOR STRENGTH AND ENDURANCE ] Future Scheduled Test PHYSICAL T HERAPY EVALUATION PERFORMED. NO ADDITIONAL VISITS REQUIRED. PROVIDED SKILLED INTERVENTION INCLUDING PATIENT IS A 73-YEAR-OLD FEMALE FAMILIAR TO THIS AGENCY. PATIENT REFERRED TO PHYSICAL THERAPY FOR EVALUATION TODAY DUE TO OVERDUE RECERTIFICATION VISIT FROM RECENT PASSING OF PATIENT'S SISTER. PATIENT P L O F IS INDEPENDENT IN HOME ENVIRONMENT WITHOUT AD USE. PATIENT REPORTS FATIGUE LEVELS AND SOME SOB LIMITING INDEPENDENCE WITH FUNCTIONAL MOBILITY AND IS OCCASIONALLY USING RW. PATIENT REPORTS SIMILAR SYMPTOMS OF PAIN, SOB AND FATIGUE PERSISTENT CAUSING DECLINE IN FUNCTIONAL TASKS. PATIENT REMAINS AT ELEVATED FALL RISK EVIDENCED BY STANDARDIZED TESTING AT 22 SECONDS TUG AND FIVE TIMES SIT TO STAND. PATIENT REPORTS PERSISTENT FATIGUE FROM EMOTIONAL DURESS FROM PASSING OF SISTER RECENTLY. PATIENT WILL BENEFIT FROM SKILLED PHYSICAL THERAPY TO PROMOTE CONTINUED CONSISTENT PERFORMANCE OF HEP AND AMBULATION TASKS PREVIOUSLY INSTRUCTED. PATIENT AND CAREGIVER VERBALIZE UNDERSTANDING AND AGREEMENT WITH PT PLAN OF CARE AND PATIENT WILL FOLLOW UP WITH PHYSICIAN SCHEDULED. [code = PHYSICAL THERAPY EVALUATION PERFORMED. NO ADDITIONAL VISITS REQUIRED. PROVIDED SKILLED INTERVENTION INCLUDING PATIENT IS A 73-YEAR-OLD FEMALE FAMILIAR TO THIS AGENCY. PATIENT REFERRED TO PHYSICAL THERAPY FOR EVALUATION TODAY DUE TO OVERDUE RECERTIFICATION VISIT FROM RECENT PASSING OF PATIENT'S SISTER. PATIENT P L O F IS INDEPENDENT IN HOME ENVIRONMENT WITHOUT AD USE. PATIENT REPORTS FATIGUE LEVELS AND SOME SOB LIMITING INDEPENDENCE WITH FUNCTIONAL MOBILITY AND IS OCCASIONALLY USING RW. PATIENT REPORTS SIMILAR SYMPTOMS OF PAIN, SOB AND FATIGUE PERSISTENT CAUSING DECLINE IN FUNCTIONAL TASKS. PATIENT REMAINS AT ELEVATED FALL RISK EVIDENCED BY STANDARDIZED TESTING AT 22 SECONDS TUG AND FIVE TIMES SIT TO STAND. PATIENT REPORTS PERSISTENT FATIGUE FROM EMOTIONAL DURESS FROM PASSING OF SISTER RECENTLY. PATIENT WILL BENEFIT FROM SKILLED PHYSICAL THERAPY TO PROMOTE CONTINUED CONSISTENT PERFORMANCE OF HEP AND AMBULATION TASKS PREVIOUSLY INSTRUCTED. PATIENT AND CAREGIVER VERBALIZE UNDERSTANDING AND AGREEMENT WITH PT PLAN OF CARE AND PATIENT WILL FOLLOW UP WITH PHYSICIAN SCHEDULED.] Goal Patient Goal - T O RETURN TO NORMAL, HEAL THIS WOUND Goal 2024-03-16 Patient Goal - TO RETURN TO NORMAL Goal 2024-06-02 Patient Goal - T O RETURN TO NORMAL, HEAL THIS WOUND Goal 2024-03-23 Patient Goal - TO RETURN TO NORMAL Goal 2024-04-06 Patient Goal - T O RETURN TO NORMAL, HEAL THIS WOUND Goal Provider Goal - A PLAN OF CARE WILL BE ESTABLISHED THAT MEETS THE PATIENTS NEEDS. PATIENT WILL DEMONSTRATE OXYGEN SATURATION WITHIN NORMAL LIMITS OR PATIENTS OPTIMAL LEVEL ESTABLISHED BY THE PHYSICIAN THROUGHOUT CARE. CHANGES TO CO-MORBID CONDITIONS AND ANY NEW CONDITIONS WILL BE IDENTIFIED AND REPORTED TO THE PHYSICIAN. Goal Provider Goal - PATIENT/CAREGIVER WILL VERBALIZE UNDERSTANDING OF SIGNS AND SYMPTOMS THAT PUT THE PATIENT AT RISK FOR HOSPITALIZATION /EMERGENCY ROOM VISITS, WHEN TO NOTIFY NURSE/PHYSICIAN OF COMPLICATIONS/DECLINE AND WHEN TO CALL 911. Goal Provider Goal - PATIENT/CAREGIVER TO VERBALIZE, AND CONSISTENTLY DEMONSTRATE EFFECTIVE, SAFE MANAGEMENT OF MEDICATION INCLUDING KNOWLEDGE OF EFFECTIVENESS, POTENTIAL SIDE EFFECTS AND DRUG REACTIONS AND WHEN TO CONTACT THE APPROPRIATE CARE PROVIDER. PATIENT/CAREGIVER WILL BE ABLE TO VERBALIZE UNDERSTANDING OF MEDICATION REGIMEN AND ACCURATELY TAKE MEDICATIONS PRESCRIBED WITHOUT ADVERSE EFFECTS BY 06/05/24. Goal Provider Goal - PT GOAL: PATIENT / CAREGIVER WILL VERBALIZE / DEMONSTRATE ABILITY TO PERFORM WOUND CARE. WOUND STATUS WILL IMPROVE EVIDENCED BY A DECREASE IN SIZE, DRAINAGE, ABSENCE OF INFECTION, AND DECREASED PAIN BY END OF EPISODE. Goal Provider Goal - PATIENT / CAREGIVER WILL VERBALIZE / DEMONSTRATE UNDERSTANDING OF PAIN CONTROL MEASURES BY 06/05/24. Goal Provider Goal - PATIENT / CAREGIVER WITHIN 1 VISIT WILL BE ABLE TO VERBALIZE / DEMONSTRATE UNDERSTANDING OF HEP AND AMBULATION TASKS Encounters Start Date/Time End Date/Time Encounter Type Admission Type Attending [facility] Care [facility] Care Department Encounter ID Discharge Date Discharge Status Discharge Condition Discharge Reason Percent Goals Met 2024-02-07 00:00:00 2024-06-05 00:00:00 Outpatient RECERTIFIC NUBIA MELENDEZ [facility] [id number]
--- OUTSIDE RECORDS SUMMARY | 2024-06-16 02:36 | XMS_ITS | Continuity of Care Document ---
Author Organization [facility] Address [address] [place] [id number]- Care Team Providers Care Retail Pharmacist Name Role Phone Benson Macdonald MD Primary Care Physician [place] [facility] [place]/24 [facility] [address] [place] [address] Encounter Type: Triage Allergies, Adverse Reactions, Alerts Substance Criticality Severity Reaction Reaction Severity Status erythromycin Drug-induced na usea and vomiting Active penicillin Rash Active lisinopril Angioedema Active sulfa drugs EVERETT - Difficult y in breathing Active Zofran elongation of QT Act naila Tagamet Bilateral weakn ess of legs Active Biaxin Rash Active Bee Stings swelling Active Nuts diarrhea Hazelnut Active Ultram Nausea Active Toprol-XL Depressed Active TraZODONE Hydrochloride Nausea Active cloNIDine Tremors Neurological Active Immunizations Given and Recorded Vaccine Date Status Refusal Reason influenza virus vaccine, inactivated 10/04/23 Give n Medications aspirin 81 mg oral delayed release tablet 81 mg, By Mouth, Daily, # 30 tablet, Refills 11, Tot. Refills 11, Maintenance, 10/07/23 8:20:00 AM EDT, Route to Pharmacy Electronically, [facility]/pharmacy #[id number], Partial fill upon patient [...] Refills, Maintenance, 03/12/22 4:08:00 PM EDT, Tablet, [id number], Partial fill upon patient request if the prescription is for aschedule II opioid drug., 153, cm, 01/19/22 17:41:00 EDT, Height, 50, kg, 01/19/22 13:01:00 EDT, Dry Weight Start Date: 03/12/22 Status: Ordered Quantity: 30.0 Unit: tablet Repeat number: 6 [employer] Saline Mist 0.65% nasal spray 1 sprays, [...] Refills, Maintenance, 12/22/19 3:24:00 PM EDT, Tablet, [id number], 1 tablet By Mouth [...] Required Details, [id number] fill upon patient request if [...] 2:56:00 PM EDT, Route to Pharmacy Electronically, [id number], Partial fill upon patient [...] Refills, Maintenance, 05/16/24 8:00:00 PM EST, Tablet, [facility]/pharmacy #[id number], Partial fill upon patient request if the [...] MRI Safety Implantable Status Assigning Authority Unknown [id number] Unknown Unknown 02/03/21 Unknown Unknown Active Unknown Unknown [id number] Unknown 12/03/21 Unknown Unknown Active Unkn own Procedure Provider Procedure Date Device Type Site Phacoemulsification Cataract with Jet Perez MD 06/20/20 Unknown Eye Right Device Identifier Serial Number Lot or Batch Number Manufacturing Date Expiration Date Distinct Identification Code MRI Safety Implantable Status Assigning Authority Unknown [id number] Unknown Unknown 07/06/20 Unknown Unknown Active Unknown Patient Care team information Care Team Personnel Name: Jasmin Richards RN Position: [facility] RN Member Role: Primary Care Nurse Name: Mer Montague Position: [facility] RN Supv Member Role: Primary Care Nurse Name: Osmani Pride RN Position: [facility] RN Member Role: Primary Care Nurse Name: Galina Mistry RN Position: S RN Member Role: Primary Care Nurse Name: Ashley Reza RN Position: [facility] ED RN W/OE and Tasks Member Role: Primary Care Nurse Name: Nadeem Kohli MD Position: [facility] Cardiology MD Member Role: Lifetime Consulting Physician Address: [address] [place] [address] [address] [place] [address]- [place] Telecom: Name: Arabella Baez RN Position: [facility] RN Member Role: Primary Care Nurse Name: Domenic Guillaume RN Position: [facility] RN Member Role: Primary Care Nurse Name: Cameron Melo RN Position: [facility] RN Member Role: Primary Care Nurse Name: Arsenio White RN Position: [facility] RN Member Role: Primary Care Nurse Name: Jaime Ramos RN Position: [facility] Outreach Member Role: Primary Care Nurse Name: Cony Schwartz RN Position: [facility] RN Member Role: Primary Care Nurse Name: Maeve Sanon RN Position: [facility] RN Member Role: Primary Care Nurse Name: Arian Mendoza RN Position: [facility] SN RN Member Role: Primary Care Nurse Name: Benson Macdonald MD Position: [facility] Outreach Member Role: PCP Address: [address] [place] [id number]- [place] Telecom: Name: Rohini Knight RN Position: [facility] RN Member Role: Primary Care Nurse Name: Nataly Arrington RN Position: [facility] RN Member Role: Primary Care Nurse Name: Anabell Beard RN Position: [facility] RN Member Role: Primary Care Nurse Name: Lucia Luke RN Position: [facility] RN Member Role: Primary Care Nurse Name: Kendra Ruiz RN Position: [facility] RN Member Role: Primary Care Nurse Name: Karuna Limon RN Position: [facility] RN Member Role: Primary Care Nurse Name: Eunice Shannon RN Position: [facility] RN Member Role: Primary Care Nurse Name: Aly Maria Jr, RN Position: [facility] ED RN W/OE and Tasks Member Role: Primary Care Nurse Name: Arabella Cabrera RN Position: [facility] RN Member Role: Primary Care Nurse Name: Dilcia Quintanilla RN Position: [facility] RN Member Role: Primary Care Nurse Name: Mattie Melo RN Position: [facility] Outreach Member Role: Primary Care Nurse Name: Conor Park RN Position: [facility] RN Member Role: Primary Care Nurse Name: Salma Jalloh RN Position: [facility] RN Supv Member Role: Primary Care Nurse Name: Roma Reyes RN Position: [facility] RN Member Role: Primary Care Nurse Name: Janelle Uriostegui RN Position: [facility] RN Member Role: Primary Care Nurse Name: Cindy Meza RN Position: [facility] Hospital Systems Integration Manager Member Role: Primary Care Nurse Care Team Related Persons Name: OLIVA WILBURN Name: ALEXANDER DOMINIQUE Insurance Providers Guarantor name: HUNG DOMINIQUE Health Plan Information #: 1 Payer: MEDICARE PART B OUTPT Member Number: NA Policy Number: NA Group Number: NA Health Plan Information #: 2 Payer: [employer] Member Number: NA Policy Number: NA Group Number: NA
--- OUTSIDE RECORDS SUMMARY | 2024-06-16 02:36 | XMS_ITS | Continuity of Care Document ---
Author Organization [facility] Address [address] [facility], [address] Floor, [address] [place] [id number]- Care Team Providers Care Email Producer Name Role Phone Benson Macdonald MD Primary Care Physician [phone] Encounter [facility] [place] Date(s): 05/07/24 - 06/06/24 [facility] [address] [facility] [address] Floor, [address] [place] [id number] Attending Physician: Dee Leung Admitting Physician: Dee Leung Referring Physician: Xochitl ArTemi Encounter Type: Triage Allergies, Adverse Reactions, Alerts [...] 8:20:00 AM EDT, Route to Pharmacy Electronically, [facility]/pharmacy #[id number], Partial fill upon patient request [...] Refills, Maintenance, 03/12/22 4:08:00 PM EDT, Tablet, [id number], Partial fill upon patient request if the prescription is for aschedule II opioid drug., 153, cm, 01/19/22 17:41:00 EDT, Height, 50, kg, 01/19/22 13:01:00 EDT, Dry Weight Start Date: 03/12/22 Status: Ordered Quantity: 30.0 Unit: tablet Repeat number: 6 [facility] Saline Mist 0.65% nasal spray 1 sprays, [...] Refills, Maintenance, 12/22/19 3:24:00 PM EDT, Tablet, [facility], 1 tablet By Mouth [...] Required Details, [id number] Partial fill upon patient request if [...] 2:56:00 PM EDT, Route to Pharmacy Electronically, [id number], Partial fill upon patient [...] Refills, Maintenance, 05/16/24 8:00:00 PM EST, Tablet, [facility]/pharmacy #[id number], Partial fill upon patient request if the [...] MRI Safety Implantable Status Assigning Authority Unknown [id number] Unknown Unknown 02/03/21 Unknown Unknown Active Unknown Unknown [id number] Unknown 12/03/21 Unknown Unknown Active Unkn own Procedure Provider Procedure Date Device Type Site Phacoemulsification Cataract with Jet Perez MD 06/20/20 Unknown Eye Right Device Identifier Serial Number Lot or Batch Number Manufacturing Date Expiration Date Distinct Identification Code MRI Safety Implantable Status Assigning Authority Unknown [id number] Unknown Unknown 07/06/20 Unknown Unknown Active Unknown Patient Care team information Care Team Personnel Name: Jasmin Richards RN Position: [facility] RN Member Role: Primary Care Nurse Name: Mer Montague Position: [facility] RN Supv Member Role: Primary Care Nurse Name: Osmani Pride RN Position: [facility] RN Member Role: Primary Care Nurse Name: Galina Mistry RN Position: [facility] RN Member Role: Primary Care Nurse Name: Ashley Reza RN Position: [facility] ED RN W/OE and Tasks Member Role: Primary Care Nurse Name: Nadeem Kohli MD Position: [facility] Cardiology MD Member Role: Lifetime Consulting Physician Address: [address] [place] [address] [address] [place] [address]- [place] Telecom: Name: Arabella Baez RN Position: [facility] RN Member Role: Primary Care Nurse Name: Domenic Guillaume RN Position: [facility] RN Member Role: Primary Care Nurse Name: Cameron Melo RN Position: [facility] RN Member Role: Primary Care Nurse Name: Arsenio White RN Position: [facility] RN Member Role: Primary Care Nurse Name: Jaime Ramos RN Position: [facility] Outreach Member Role: Primary Care Nurse Name: Cony Schwartz RN Position: [facility] RN Member Role: Primary Care Nurse Name: Maeve Sanon RN Position: [facility] RN Member Role: Primary Care Nurse Name: Arian Mendoza RN Position: [facility] SN RN Member Role: Primary Care Nurse Name: Benson Macdonald MD Position: [facility] Outreach Member Role: PCP Address: [address] [place] [phone]- Telecom: Name: Rohini Knight RN Position: [facility] RN Member Role: Primary Care Nurse Name: Nataly Arrington RN Position: [facility] RN Member Role: Primary Care Nurse Name: Anabell Beard RN Position: [facility] RN Member Role: Primary Care Nurse Name: Lucia Luke RN Position: [facility] RN Member Role: Primary Care Nurse Name: Kendra Ruiz RN Position: [facility] RN Member Role: Primary Care Nurse Name: Karuna Limon RN Position: [facility] RN Member Role: Primary Care Nurse Name: Eunice Shannon RN Position: [facility] RN Member Role: Primary Care Nurse Name: Aly Maria Jr, RN Position: [facility] ED RN W/OE and Tasks Member Role: Primary Care Nurse Name: Arabella Cabrera RN Position: [facility] RN Member Role: Primary Care Nurse Name: Dilcia Quintanilla RN Position: [facility] RN Member Role: Primary Care Nurse Name: Mattie Melo RN Position: [facility] Outreach Member Role: Primary Care Nurse Name: Conor Park RN Position: [facility] RN Member Role: Primary Care Nurse Name: Salma Jalloh RN Position: [facility] RN Supv Member Role: Primary Care Nurse Name: Roma Reyes RN Position: [facility] RN Member Role: Primary Care Nurse Name: Janelle Uriostegui RN Position: [facility] RN Member Role: Primary Care Nurse Name: Cindy Meza RN Position: [facility] [employer] Awning Repairer Member Role: Primary Care Nurse Care Team Related Persons Name: OLIVA WILBURN Name: ALEXANDER DOMINIQUE Insurance Providers Guarantor name: HUNG DOMINIQUE Health Plan Information #: 1 Payer: MEDICARE PART B OUTPT Member Number: NA Policy Number: NA Group Number: NA Health Plan Information #: 2 Payer: [employer] Member Number: NA Policy Number: NA Group Number: NA
--- OUTSIDE RECORDS SUMMARY | 2024-06-16 02:36 | XMS_ITS | Continuity of Care Document ---
Author Organization [facility] Address [address] [facility] [place], 3r d Floor, [address] [place] [id number]- Care Team Providers Care Director Of Laboratory Operations Name Role Phone Benson Macdonald MD Primary Care Physician [id number] Date(s): 04/06/24 - 06/06/24 [facility] [address] [place] [address] 3rd Floor, [address] [place] [address] Attending Physician: Alba Choudhury NP Admitting Physician: Alba Choudhury NP Encounter Type: Pre-OutPatient One Time Allergies, Adverse Reactions, Alerts Substance Criticality Severity [...] 8:20:00 AM EDT, Route to Pharmacy Electronically, [facility]/pharmacy #[id number], Partial fill upon patient request [...] Refills, Maintenance, 03/12/22 4:08:00 PM EDT, Tablet, [id number], Partial fill upon patient request if the prescription is for aschedule II opioid drug., 153, cm, 01/19/22 17:41:00 EDT, Height, 50, kg, 01/19/22 13:01:00 EDT, Dry Weight Start Date: 03/12/22 Status: Ordered Quantity: 30.0 Unit: tablet Repeat number: 6 [place] Saline Mist 0.65% nasal spray 1 sprays, [...] Refills, Maintenance, 12/22/19 3:24:00 PM EDT, Tablet, [id number], 1 tablet By Mouth [...] Required Details, [id number] fill upon patient request if [...] 2:56:00 PM EDT, Route to Pharmacy Electronically, [id number], Partial fill upon patient [...] Refills, Maintenance, 05/16/24 8:00:00 PM EST, Tablet, [facility]/pharmacy #[id number], Partial fill upon patient request if the [...] MRI Safety Implantable Status Assigning Authority Unknown [id number] Unknown Unknown 02/03/21 Unknown Unknown Active Unknown Unknown [id number] Unknown 12/03/21 Unknown Unknown Active Unkn own Procedure Provider Procedure Date Device Type Site Phacoemulsification Cataract with Jet Perez MD 06/20/20 Unknown Eye Right Device Identifier Serial Number Lot or Batch Number Manufacturing Date Expiration Date Distinct Identification Code MRI Safety Implantable Status Assigning Authority Unknown [id number] Unknown Unknown 07/06/20 Unknown Unknown Active Unknown Patient Care team information Care Team Personnel Name: Jasmin Richards RN Position: [facility] RN Member Role: Primary Care Nurse Name: Mer Montague Position: [facility] RN Supv Member Role: Primary Care Nurse Name: Osmani Pride RN Position: [facility] RN Member Role: Primary Care Nurse Name: Galina Mistry RN Position: [facility] RN Member Role: Primary Care Nurse Name: Ashley Reza RN Position: [facility] ED RN W/OE and Tasks Member Role: Primary Care Nurse Name: Nadeem Kohli MD Position: [facility] Cardiology MD Member Role: Lifetime Consulting Physician Address: [address] [place] [address] [address] [place] [address]- Telecom: Name: Arabella Baez RN Position: [facility] RN Member Role: Primary Care Nurse Name: Domenic Guillaume RN Position: [facility] RN Member Role: Primary Care Nurse Name: Cameron Melo RN Position: [facility] RN Member Role: Primary Care Nurse Name: Arsenio White RN Position: [facility] RN Member Role: Primary Care Nurse Name: Jaime Ramos RN Position: [facility] Outreach Member Role: Primary Care Nurse Name: Cony Schwartz RN Position: [facility] RN Member Role: Primary Care Nurse Name: Maeve Sanon RN Position: [facility] RN Member Role: Primary Care Nurse Name: Arian Mendoza RN Position: [facility] SN RN Member Role: Primary Care Nurse Name: Benson Macdonald MD Position: [facility] Outreach Member Role: PCP Address: [address] [place] [id number]- Telecom: Name: Rohini Knight RN Position: [facility] RN Member Role: Primary Care Nurse Name: Nataly Arrington RN Position: [facility] RN Member Role: Primary Care Nurse Name: Anabell Beard RN Position: [facility] RN Member Role: Primary Care Nurse Name: Lucia Luke RN Position: [facility] RN Member Role: Primary Care Nurse Name: Kendra Ruiz RN Position: [facility] RN Member Role: Primary Care Nurse Name: Karuna Limon RN Position: [facility] RN Member Role: Primary Care Nurse Name: Eunice Shannon RN Position: [facility] RN Member Role: Primary Care Nurse Name: Aly Maria Jr, RN Position: [facility] ED RN W/OE and Tasks Member Role: Primary Care Nurse Name: Arabella Cabrera RN Position: [facility] RN Member Role: Primary Care Nurse Name: Dilcia Quintanilla RN Position: [facility] RN Member Role: Primary Care Nurse Name: Mattie Melo RN Position: [facility] Outreach Member Role: Primary Care Nurse Name: Conor Park RN Position: [facility] RN Member Role: Primary Care Nurse Name: Salma Jalloh RN Position: [facility] RN Supv Member Role: Primary Care Nurse Name: Roma Reyes RN Position: [facility] RN Member Role: Primary Care Nurse Name: Janelle Uriostegui RN Position: [facility] RN Member Role: Primary Care Nurse Name: Cindy Meza RN Position: [facility] St[facility] Member Role: Primary Care Nurse Care Team Related Persons Name: JENISE WILBURNN Name: ALEXANDER DOMINIQUE Insurance Providers Guarantor name: HUNG DOMINIQUE Health Plan Information #: 1 Payer: MEDICARE PART B OUTPT Member Number: [id number] Policy Number: NA Group Number: NA Health Plan Information #: 2 Payer: [facility] Member Number: [id number] Policy Number: NA Group Number: NA
--- OUTSIDE RECORDS SUMMARY | 2024-06-16 02:36 | XMS_ITS | Patient Health Record ---
Author Organization [facility] Address [address] [place] [address] Care Team Providers Care Forensic Sergeant Name Role Phone Larry Acosta DO Primary Care Provider Unavailab yesi [facility] Nurse, Vera Unavailable Unavailable Allergies Allergen (clinical drug ingredient) Drug/Non Drug Allergy documented on EMR Reaction Allergy Type Onset Date Status Biaxin (uncoded) rash Allergy Act naila erythromycin Erthromycin (uncoded) rash Allergy Active gabapentin Gabapentin (uncoded) muscle pain, cramping Allergy Active Penicillin (uncoded) rash Allergy Active Procardia (uncoded) dizziness Allergy Active Substance with sulfonamide structure and antibacterial mechanism of action (substance) Sulfa drugs (uncoded) rash Allergy Active cimetidine Tagament (uncoded) rash Allergy Active metoprolol Toprolol XL (uncoded) aggressive Allergy Active trazodone Trazadone (uncoded) nausea and vomiting Allergy Active tramadol Ultram (uncoded) nausea and vomiting Allergy Active Reason For Referral No Information Medications Medication SIG (Take, Route, Frequency, Duration) Notes Start Date End Date Status Lisinopril 5 MG Orally once a day Not-Taking Vicodin 5-325 mg 1 tablet as needed Orally every 6 hrs Not-Taking Xanax 1 MG 1 tablet Orally ever y 12 hrs PRN Active Ropinirole Hydrochloride Not-Taking Elavil 10 MG 1 tablet Orally 1 to 3 at bedtime Not-Taking Aspirin 81 MG 1 tablet Orally Once a day Not-Taking Lidocaine 5 % 1 application as nee ded Externally Twice a day for 30 days 04/30/2021 Active tiZANidine HCl 4 MG 1-2 tabs Orally QHS for 30 days 02/18/2017 Not-Taking Carvedilol 6.25 MG 1 tablet with food Orally twice a day Active Carisoprodol 350 MG 1 tablet as needed Orally every 8 hours Active HYDROcodone-Acetaminophen 5-325 MG 1 tablet as needed Orally every 6 hrs Active amLODIPine Besylate 5 MG 1 tablet Orally Once a day for 30 day(s) Active Social History Tobacco Use: Social History Observation Description Date Details (start date - stop date) Never Smoker NA - NA Tobacco Use/Smoking Question Answer Notes Are you a nonsmoker Additional Findings: Tobacco Non-User Current no n-smoker Problems Problem Type SNOMED Code ICD Code Onset Dates Problem Status W/U Status Risk Notes Problem 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 confirmed Problem Mononeuropathy of upper limb (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 [address] [facility] [place] [phone] [id number] HUNG DOMINIQUE Self - patient is the insured [employer] of [place] [address] [place] [phone] [id number] HUNG DOMINIQUE Self - patient is the insured Medical (General) History Medical History History ICD Code Hypertension Acid Reflux Disc Disease hyperlipedemia IBSltr Arthritis Myofasicial pain RSD Fibromyalgia cervical stenosis of spine chronic neck pain Surgical History Surgery Date(Month/Year) hysterectomy gangling cysts gangling cysts neck surgery Hospitalization History Reason Date(Month/Year) blood pressure, passing out INCREASE IN BP MEDICATION BY PCP
--- OUTSIDE RECORDS SUMMARY | 2024-06-16 02:36 | XMS_ITS | Continuity of Care Document ---
Author Organization [facility] Address [address] [place] [address]- Care Team Providers Care Outpatient Case Manager Name Role Phone Benson Macdonald MD Primary Care Physician Encounter [facility] Date(s): 05/16/24 - 05/16/[address] [address]- Encounter Diagnosis Chest pain(Final) - 05/16/24 Discharge Disposition: A-D/C Home Attending Physician: Brandon Cross MD Admitting Physician: Brandon Cross MD Referring Physician: Not on Staff, Referring MD Allergies, Adverse Reactions, Alerts Substance Reaction Severity Status erythromycin Drug-induced nausea and vomiting Active lisinopril Angioedema Active Biaxin Rash Active penicillin Rash Active sulfa drugs EVERETT - Difficulty in breathing Active Zofran elongation of QT Active Tagamet Bilateral weakness of legs A ctive Ultram Nausea Active Bee Stings swelling Active Nuts diarrhea Hazelnut Active Toprol-XL Depressed Active TraZODONE Hydrochloride Nausea Acti ve cloNIDine Tremors Neurological Active Immunizations Given and Recorded Vaccine Date Status Refusal Reason influenza virus vaccine, inactivated 10/04/23 Give n Medications aspirin 81 mg oral delayed release tablet 81 mg, By Mouth, Daily, # 30 tablet, Refills 11, Tot. Refills 11, Maintenance, 10/07/23 8:20:00 EDT, Route to Pharmacy Electronically, [facility]/pharmacy #[id number], Partial fill upon patient request if the prescription is for a schedule II opioid drug., 153, cm... Start Date: 10/07/23 Stop Date: 10/01/24 Status: Ordered atorvastatin 40 mg oral tablet 1 tablet = 40 mg, By Mouth, Daily at bedtime, # 30 tablet, 5 Refills, Maintenance, 03/12/22 16:08:00 EDT, Tablet, [id number], Partial fill upon patient request if the prescription is for aschedule II opioid drug., 153, cm, 01/19/22 17:41:0... Start Date: 03/12/22 Status: Ordered Eddy Saline Mist 0.65% nasal spray 1 sprays, Nares, Both, Daily, PRN as needed for dry nasal passages, 0 Refills, Maintenance, 08/14/23 8:35:00 EST, Partial fill upon patient request if the prescription is for a schedule II opioid drug. Start Date: 08/14/23 Status: Ordered carisoprodol 350 mg oral tablet 1 tablet = 350 mg, By Mouth, 3 times a day, 0 Refills, Maintenance, 03/06/24 2:38:00 EDT, Tablet, Partial fill upon patient request if the prescription is for a schedule II opioid drug. Start Date: 03/06/24 Status: Ordered carvedilol 12.5 mg oral tablet See Instructions, 1 tablet By Mouth 1 tab in aM, half tab in PM, Refills 0, Maintenance, 03/11/24 9:36:00 EDT, Instructions Replace Required Details, Partial fill upon patient request if the prescription is for a schedule II opioid drug. Start Date: 03/11/24 Status: Ordered docusate-senna 50 mg-187 mg oral tablet 1 tablet, By Mouth, Daily, # 30 tablet, 0 Refills, Maintenance, 12/22/19 15:24:00 EDT, Tablet, [id number], 1 tablet By Mouth Daily, 153, cm, 12/22/19 11:55:00 EDT, Height, 49.2, kg, 12/17/19 17:24:00 EDT, Dry Weight Start Date: 12/22/19 Status: Ordered gabapentin 100 mg oral capsule 100 mg, 1, capsule, By Mouth, 2 times a day Start Date: 08/14/23 Status: Ordered hydrALAZINE 25 mg oral tablet See Instructions, Take 1 tablet By Mouth daily as needed for systoilc blood pressure greater than 150. OR, take 2 tablets by mouth daily as needed for systoic BP greater than 200, # 180 tablet, Refills 1, Tot. Refills 1, Maintenance, 04/09/24 16:03:... Start Date: 04/09/24 Status: Ordered isosorbide mononitrate 30 mg oral tablet, extended release 30 mg, 1, tablet, By Mouth, Daily in AM, # 90 tablet, Refills 0, Tot. Refills 0, Maintenance, 12/17/22 14:56:00 EDT, Route to Pharmacy Electronically, [id number], Partial fill upon patientrequest if the prescription is for a schedule II op... Start Date: 12/17/22 Status: Ordered lidocaine 1% topical lotion 1 application, Topically, 2 times a day, PRN Pain , Moderate, 0 Refills, Maintenance, 12/13/17 10:52:03 EDT Start Date: 12/13/17 Status: Ordered mirtazapine 7.5 mg oral tablet 1 tablet = 7.5 mg, By Mouth, Daily, at night Start Date: 08/14/23 Status: Ordered MorPHINE Inj 4 mg, Injection, IV Push Slowly, Every 5 minutes for 3 doses/times, PRN for Pain , Moderate, and SBP greater than 100, Routine, 05/16/24 13:36:00 EST, Stop date Limited # of times Start Date: 05/16/24 Status: Ordered Multi Vitamin+ 1 tablet, By Mouth, Daily, 0 Refills, Maintenance, 08/14/23 8:35:00 EST, Partial fill upon patient request if the prescription is for a schedule II opioid drug. Start Date: 08/14/23 Status: Ordered offloading sandal offloading sandal, See Instructions, # 1 each, Refills 0, Tot. 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 Start Date: 05/16/24 Stop Date: 05/19/24 Status: Ordered Pepcid 40 mg oral tablet 1 tablet = 40 mg, By Mouth, 2 times a day, # 30 tablet, 0 Refills, Maintenance, 08/10/20 17:53:00 EST, Tablet, Partial fill upon patient request if the prescription is for a schedule II opioid drug. Start Date: 08/10/20 Status: Ordered Vicodin 5/500 Tablet By Mouth, Every 6 hours, 0 Refills, Maintenance, 03/05/24 12:25:00 EDT, Partial fill upon patient request if the prescription is for a schedule II opioid drug. Start Date: 03/05/24 Status: Ordered Vitamin D3 = 2,000 International_Units, By Mouth, Daily in AM, 0 Refills, Maintenance, 11/09/14 13:25:56 EDT Start Date: 11/09/14 Status: Ordered Xanax 0.5 mg oral tablet 0.5 mg, 1, tablet, By Mouth, 2 times a day, PRN, Refills 0, Maintenance, Anxiety, 12/17/19 14:58:00EDT Start Date: 12/17/19 Status: Ordered Problem List Condition Confirmation Course Effective Dates [...] SIRS (systemic inflammatory response syndrome) Confirmed Active Results Radiology Reports * Exam Date Time Procedure Performing Provider Status 05/16/24 2:[address] Angio Abdomen Jass Montes De Ocauthnickie T; Au (Verified) Notes: (CT Angio Abdomen) Reason For Exam: Renal artery dissection suspected;Other: RESULT: CT Angio Abdomen EXAMINATION: CT Angio Chest, CT Angio Abdomen INDICATION: Indication: known hypertension, had chest pressure and right arm pain today. has seen PCP for hypertension previously. Thoracic stent for surgical history this summer; Reason: Other:;Aortic disease, nontraumatic; Clinical Question(s): Other:; Aortic Dissection TECHNIQUE: Spiral CTA of the chest was performed after rapid IV contrast administration without cardiac gating, triggered by an HERNANDO on the main pulmonary artery. Images are formatted in multiple planes using 2-D multiplanar and 3-D maximum intensity projection. 140 cc of Isovue 300 was administered intravenously. Weight-based protocol using automatic tube modulation was used to optimize exposure parameters. CTDIvol Body: 11.86 mGy, DLP Body: 1100 mGy*cm. (accession [id number]), CTDIvol Body: 12.66 mGy, DLP Body: 903 mGy*cm. (accession [id number]) COMPARISONS: None. ANGIOGRAPHIC FINDINGS: No aortic dissection or aneurysm. Normal three vessel arch without branch vessel stenosis. Ectasia of the left pulmonary artery measuring up to 2.4 cm.. No evidence of central pulmonary embolism on this study performed without dedicated technique. Abdominal aorta: No aortic aneurysm or dissection. Patent distal thoracic aortic stent. Celiac axis: Atherosclerotic vascular calcifications at the origin, patent. Superior mesenteric artery: Atherosclerotic vascular calcifications at the origin, patent. Right renal artery: Mild atherosclerotic vascular calcifications the origin, patent. Left renal artery: Mild atherosclerotic vascular calcifications of the origin, pain.. Inferior mesenteric artery: Patent. Visualized iliac arteries: Patent. No significantly change in previously visualized right lower lobe AVM. NON-ANGIOGRAPHIC FINDINGS: Barrel Loader And Cleaner View Findings, Lines and Tubes: None. Trachea and Airways: Patent without evidence of tracheal or endobronchial lesion. Lungs and Pleura: No focal consolidation. No effusion or pneumothorax. Mediastinum and abraham: No mass or hematoma. No mediastinal or hilar lymphadenopathy. No esophageal abnormality. Normal thyroid. Heart: Heart is normal in size. No pericardial effusion. Chest Wall Soft Tissues: Normal. Diaphragm : No significant abnormality. Liver: Normal. Gallbladder: Absent consistent with prior cholecystectomy. Bile ducts: The common bile duct is dilated measuring up to 1.1 cm. Scattered hypodensities, some too small to characterize. Spleen: Normal. Pancreas: Normal. Adrenal glands: Normal. Kidneys and ureters: No hydronephrosis, stones, or suspicious masses. Stomach, small bowel, and large bowel: Gastrostomy tube in place. Visualized stomach and bowel are normal. Peritoneum and retroperitoneum: No ascites or pneumoperitoneum. No omental or mesenteric lesions. Lymph nodes: No enlarged lymph nodes. Abdominal wall: Unremarkable. Bones: Partial visualization of cervical ACDF. IMPRESSION: 1. No aortic aneurysm or dissection. 2. Patent distal thoracic aorta stent in place. 3. Chronic findings as described above. I have personally reviewed the images and I agree with this report. WSN: [id number] Ordering Physician: Brandon Cross Dictated By: Rufina Meza MD Dictated Date/Time: 05/16/24 4:48 pm Reviewed By: Kendra Landaverde MD Signed By: Kendra Landaverde MD Signed Date/Time: 05/16/24 4:53 pm Transcribed By: SUN Transcribed Date/Time: 05/16/24 3:03 pm * Exam Date Time Procedure Performing Provider Status 05/16/24 2:[address] Angio Chest Montes De Oca , Marcelina T; Auth (Verified) Notes: (CT Angio Chest) Reason For Exam: Aortic disease, nontraumatic;Other: RESULT: CT Angio Chest EXAMINATION: CT Angio Chest, CT Angio Abdomen INDICATION: Indication: known hypertension, had chest pressure and right arm pain today. has seen PCP for hypertension previously. Thoracic stent for surgical history this summer; Reason: Other:;Aortic disease, nontraumatic; Clinical Question(s): Other:; Aortic Dissection TECHNIQUE: Spiral CTA of the chest was performed after rapid IV contrast administration without cardiac gating, triggered by an HERNANDO on the main pulmonary artery. Images are formatted in multiple planes using 2-D multiplanar and 3-D maximum intensity projection. 140 cc of Isovue 300 was administered intravenously. Weight-based protocol using automatic tube modulation was used to optimize exposure parameters. CTDIvol Body: 11.86 mGy, DLP Body: 1100 mGy*cm. (accession [id number]), CTDIvol Body: 12.66 mGy, DLP Body: 903 mGy*cm. (accession [id number]) COMPARISONS: None. ANGIOGRAPHIC FINDINGS: No aortic dissection or aneurysm. Normal three vessel arch without branch vessel stenosis. Ectasia of the left pulmonary artery measuring up to 2.4 cm.. No evidence of central pulmonary embolism on this study performed without dedicated technique. Abdominal aorta: No aortic aneurysm or dissection. Patent distal thoracic aortic stent. Celiac axis: Atherosclerotic vascular calcifications at the origin, patent. Superior mesenteric artery: Atherosclerotic vascular calcifications at the origin, patent. Right renal artery: Mild atherosclerotic vascular calcifications the origin, patent. Left renal artery: Mild atherosclerotic vascular calcifications of the origin, pain.. Inferior mesenteric artery: Patent. Visualized iliac arteries: Patent. No significantly change in previously visualized right lower lobe AVM. NON-ANGIOGRAPHIC FINDINGS: Barrel Loader And Cleaner View Findings, Lines and Tubes: None. Trachea and Airways: Patent without evidence of tracheal or endobronchial lesion. Lungs and Pleura: No focal consolidation. No effusion or pneumothorax. Mediastinum and abraham: No mass or hematoma. No mediastinal or hilar lymphadenopathy. No esophageal abnormality. Normal thyroid. Heart: Heart is normal in size. No pericardial effusion. Chest Wall Soft Tissues: Normal. Diaphragm : No significant abnormality. Liver: Normal. Gallbladder: Absent consistent with prior cholecystectomy. Bile ducts: The common bile duct is dilated measuring up to 1.1 cm. Scattered hypodensities, some too small to characterize. Spleen: Normal. Pancreas: Normal. Adrenal glands: Normal. Kidneys and ureters: No hydronephrosis, stones, or suspicious masses. Stomach, small bowel, and large bowel: Gastrostomy tube in place. Visualized stomach and bowel are normal. Peritoneum and retroperitoneum: No ascites or pneumoperitoneum. No omental or mesenteric lesions. Lymph nodes: No enlarged lymph nodes. Abdominal wall: Unremarkable. Bones: Partial visualization of cervical ACDF. IMPRESSION: 1. No aortic aneurysm or dissection. 2. Patent distal thoracic aorta stent in place. 3. Chronic findings as described above. I have personally reviewed the images and I agree with this report. WSN: [id number] Ordering Physician: Brandon Cross Dictated By: Rufina Meza MD Dictated Date/Time: 05/16/24 4:48 pm Reviewed By: Kendra Landaverde MD Signed By: Kendra Landaverde MD Signed Date/Time: 05/16/24 4:53 pm Transcribed By: SUN Transcribed Date/Time: 05/16/24 3:03 pm * Exam Date Time Procedure Performing Provider Status 05/16/24 2:[address] Head/Brain W/O Contrast Marjorie Montes De Oca T; Auth (Verified) Notes: (CT Head/Brain W/O Contrast) Reason For Exam: subacute r arm/leg sensation change;Other: RESULT: CT Head/Brain W/O Contrast CT Head/Brain W/O Contrast INDICATION: Hx of Present Illness: known hypertension, had chest pressure and right arm pain today.has seen PCP for hypertension previously. Thoracic stent for surgical history this summer; Reason: Other:; subacute r arm leg sensation change; Clinical Question(s): Hematoma TECHNIQUE: Noncontrast head CT using axial technique and reconstructed in axial and coronal planes.Iterative reconstruction techniques are used to optimize dose and image quality. CTDIvol Head: 49.08 mGy, DLP Head: 793 mGy*cm. COMPARISON: None. FINDINGS: Barrel Loader And Cleaner view findings, lines and tubes: None. BRAIN AND EXTRA-AXIAL SPACES: No parenchymal hemorrhage, midline shift, or mass effect. Johnson-white matter differentiation is wellpreserved. No acute infarct. Negative insular ribbon sign. Atherosclerotic vascular calcification of the carotid arteries but negative hyperdense vessel sign. Mild prominence of the ventricles and sulci consistent with parenchymal volume loss. Mild low-density white matter changes. No subarachnoid hemorrhage. No subdural or epidural collection. CALVARIUM, SKULL BASE, AND SOFT TISSUES: No fractures or suspicious bony lesions. The paranasal sinuses and mastoid air cells are clear. Visualized orbits and globes are intact. The extracranial soft tissues are unremarkable. IMPRESSION: No acute intracranial pathology. WSN: [id number] Ordering Physician: Brandon Cross Dictated By: Sage Guerrero MD Dictated Date/Time: 05/16/24 2:08 pm Reviewed By: Sage Guerrero MD Signed By: Sage Guerrero MD Signed Date/Time: 05/16/24 2:08 pm Transcribed By: SUN Transcribed Date/Time: 05/16/24 2:05 pm Vital Signs Most recent to oldest [Reference Range]: 1 2 3 Height 152 cm (05/16/24 4:30 PM) 152 cm (05/16/24 2:45 PM) 152 cm (05/16/24 2:32 PM) Weight 50 kg (05/16/24 4:30 PM) 50 kg (05/16/24 2:45 PM) 50 kg (05/16/24 2:32 PM) Oxygen Saturation [94-100 %] 96 % (05/16/24 4:30 PM) 96 % (05/16/24 3:16 PM) 95 % (05/16/24 2:45 PM) Pulse Rate [55-90 bpm] 77 bpm (05/16/24 4:30 PM) 68 bpm (05/16/24 3:16 PM) 73 bpm (05/16/24 2:45 PM) Body Mass Index [18.5-24.99 kg/m2] 21.64 kg/m2 (05/16/24 4:30 PM) 21.64 kg/m2 (05/16/24 2:45 PM) 21.64 kg/m2 (05/16/24 2:32 PM) Blood Pressure [90-138/55-84 mm Hg] 139/57mm Hg *H* (05/16/24 4:30 PM) 133/45mm Hg (05/16/24 3:16 PM) 153/46mm Hg *H* (05/16/24 2:45 PM) Respiratory Rate [16-30 br/min] 16 br/min (05/16/24 4:47 PM) 16 br/min (05/16/24 4:30 PM) 16 br/min (05/16/24 3:16 PM) Temperature [96.8-100.4 DegF] 97.5 DegF (05/16/24 11:52 AM) Mode of Delivery (Oxygen) Room air (05/16/24 4:30 PM) Room air (05/16/24 3:16 PM) Room air (05/16/24 2:45 PM) Blood pressure sites Arm, right (05/16/24 4:30 PM) Arm, right (05/16/24 3:16 PM) Arm, right (05/16/24 2:45 PM) Temperature Route Oral (05/16/24 11:52 AM) Dry Weight 50 kg (05/16/24 4:30 PM) 50 kg (05/16/24 2:45 PM) 50 kg (05/16/24 2:32 PM) Social History Social History Type Response Smoking Status Never (less than 100 in lifetime) entered on: 12/15/18 Sex Implantable Device List Procedure Provider Procedure Date Device Type Site Phacoemulsification Cataract with Jet Perez MD 07/25/20 Unknown Eye Left Device Identifier Serial Number Lot or Batch Number Manufacturing Date Expiration Date Distinct Identification Code MRI Safety Implantable Status Assigning Authority Unknown [id number] Unknown Unknown 02/03/21 Unknown Unknown Active Unknown Unknown [id number] Unknown 12/03/21 Unknown Unknown Active Unkn own Procedure Provider Procedure Date Device Type Site Phacoemulsification Cataract with Jet Perez MD 06/20/20 Unknown Eye Right Device Identifier Serial Number Lot or Batch Number Manufacturing Date Expiration Date Distinct Identification Code MRI Safety Implantable Status Assigning Authority Unknown [id number] Unknown Unknown 07/06/20 Unknown Unknown Active Unknown Note * [place] OLIVEIRA, Brandon Okeefe: PERFORM Event Display: Patient Education Leaflets Authored Date: [id number] Uncertain Causes of Chest Pain ?? [id number] Uncertain Causes of Chest Pain Chest pain can happen for a number of reasons. Sometimes the cause can't be determined. If your??condition does not seem serious, and your pain does not appear to be coming from your heart, your healthcare provider may recommend watching it closely. Sometimes the signs of a serious problem take more time to appear. Many problems not related to your heart can cause chest pain. These include: ??? Musculoskeletal. Costochondritis is an inflammation of the tissues around the ribs that can occur from trauma or overuse injuries, or a strain of the muscles of the chest wall. ??? Respiratory. Pneumonia, collapsed lung (pneumothorax), or inflammation of the lining of the chest and lungs (pleurisy). ??? Gastrointestinal. Esophageal reflux, heartburn, ulcers, or gallbladder disease. ??? Anxiety and panic disorders ??? Nerve compression and inflammation ??? Rare problems such as aortic aneurysm or aortic dissection (a swelling of the large artery coming out of the heart or a tear in the wall of the artery), or pulmonary embolism (a blood clot in the lungs). Home care After your visit, follow these recommendations: ??? Rest today and avoid strenuous activity. ??? Take any prescribed medicine as directed. ??? Be aware of any recurrent chest pain and notice any changes ?? Follow-up care Follow up with your healthcare provider if you don't start to feel better within 24 hours, or as advised. ?? Call 911 Call 911 if any of these occur: ??? A change in the type of pain: if it feels different, becomes more severe, lasts longer, or begins to spread into your shoulder, arm, neck, jaw or back ??? Shortness of breath or increased pain with breathing ??? Weakness, dizziness, or fainting ??? Rapid heartbeat ??? Crushing sensation in your chest ??? Coughing up more than a small amount of blood. ?? When to seek medical advice Call your healthcare provider right away if any of the following occur: ??? Cough with dark coloredsputum (phlegm) or small amount of blood ??? Fever of 100.4??F??(38??C) or higher, or as directed by your healthcare provider ??? Swelling, pain or redness in one leg ?? Last Reviewed Date: 2021 ?? [id number] Health: [employer]. All rights reserved. This information is not intended as a substitute for professional medical care. Always follow your healthcare professional's instructions. ?? Patient Care team information Care Team Personnel Name: Jasmin Richards RN Position: [facility] RN Member Role: Primary Care Nurse Name: Mer Montague Position: [facility] RN Supv Member Role: Primary Care Nurse Name: Osmani Pride RN Position: [facility] RN Member Role: Primary Care Nurse Name: Galina Mistry RN Position: [facility] RN Member Role: Primary Care Nurse Name: Ashley Reza RN Position: [facility] ED RN W/OE and Tasks Member Role: Primary Care Nurse Name: Nadeem Kohli MD Position: [facility] Cardiology MD Member Role: Lifetime Consulting Physician Address: Address: [address] [place] [address] [place] [id number] Name: Arabella Baez RN Position: [facility] RN Member Role: Primary Care Nurse Name: Domenic Guillaume RN Position: [facility] RN Member Role: Primary Care Nurse Name: Cameron Melo RN Position: [facility] RN Member Role: Primary Care Nurse Name: Arsenio White RN Position: [facility] RN Member Role: Primary Care Nurse Name: Jaime Ramos RN Position: [facility] Outreach Member Role: Primary Care Nurse Name: Cony Schwartz RN Position: [facility] RN Member Role: Primary Care Nurse Name: Maeve Sanon RN Position: [facility] RN Member Role: Primary Care Nurse Name: Arian Mendoza RN Position: [facility] SN RN Member Role: Primary Care Nurse Name: Benson Macdonald MD Position: [facility] Outreach Member Role: PCP Address: Address: [address] [place] [id number] Name: Rohini Knight RN Position: [facility] RN Member Role: Primary Care Nurse Name: Nataly Arrington RN Position: [facility] RN Member Role: Primary Care Nurse Name: Anabell Beard RN Position: [facility] RN Member Role: Primary Care Nurse Name: Lucia Luke RN Position: [facility] RN Member Role: Primary Care Nurse Name: Kendra Ruiz RN Position: [facility] RN Member Role: Primary Care Nurse Name: Karuna Limon RN Position: [facility] RN Member Role: Primary Care Nurse Name: Eunice Shannon RN Position: [facility] RN Member Role: Primary Care Nurse Name: Aly Maria Jr, RN Position: [facility] ED RN W/OE and Tasks Member Role: Primary Care Nurse Name: Arabella Cabrera RN Position: [facility] RN Member Role: Primary Care Nurse Name: Dilcia Quintanilla RN Position: [facility] RN Member Role: Primary Care Nurse Name: Mattie Melo RN Position: [facility] Outreach Member Role: Primary Care Nurse Name: Conor Park RN Position: [facility] RN Member Role: Primary Care Nurse Name: Salma Jalloh RN Position: [facility] RN Supjerod Member Role: Primary Care Nurse Name: Roma Reyes RN Position: [facility] RN Member Role: Primary Care Nurse Name: Janelle Uriostegui RN Position: [facility] RN Member Role: Primary Care Nurse Name: Cindy Meza RN Position: [facility] Patient Accounts Manager Member Role: Primary Care Nurse Care Team Related Persons Name: JENISE JOHNSONN Address: [place] [address] Name: ALEXANDER DOMINIQUE Address: home [address] [place] [id number]
== END 2024-06-10 14:16 | disposition home or self-care (01) ==
PROVIDERS: PCP Family Medicine; Visit Provider Internal Medicine Nephrology
DX: R09.89 Other specified symptoms and signs involving the circulatory and respiratory systems (principal)
CPT/HCPCS: 99214

== ENCOUNTER → 2024-06-10 13:33 | Outpatient (BNVA) | payer MEDICARE, MEDICAID, SELFPAY | PROVIDERS: PCP Family Medicine; Visit Provider Internal Medicine Nephrology | DX: R09.89 Other specified symptoms and signs involving the circulatory and respiratory systems (principal) | CPT/HCPCS: 99212 ==

== ENCOUNTER 2024-08-24 13:36 | Outpatient (AMB) | payer MEDICARE, MEDICAID, SELFPAY ==
--- NOTE | 2024-08-24 13:44 | HO.NEPHOV ---
Vital Signs 08/24/24 13:47 Height 5 ft Weight 112 lb BMI 21.9 BP 140/60 H Blood Pressure Location Lt brachial Position Sitting Pulse 70 Pulse Source Pulse Oximeter Pulse Oximetry (%) 98 Oxygen Delivery Method Room Air Intake Visit Reasons: 2mo follow up No Labs-Conf Medical Reimbursement Specialist Required: No Accompanied by: Spouse Allergies cimetidine [From Tagamet] Allergy (Verified 08/24/24 13:47) Gastrointestinal Upset clarithromycin [From Biaxin] Allergy (Verified 08/24/24 13:47) Unknown clonidine Allergy (Verified 08/24/24 13:47) spasms erythromycin base Allergy (Verified 08/24/24 13:47) Rash gabapentin Allergy (Verified 08/24/24 13:47) Muscle Pain lisinopril Allergy (Verified 08/24/24 13:47) Angioedema methocarbamol Allergy (Verified 08/24/24 13:47) Nausea ondansetron Allergy (Verified 08/24/24 13:47) Unknown Penicillins Allergy (Verified 08/24/24 13:47) Unknown Sulfa (Sulfonamide Antibiotics) Allergy (Verified 08/24/24 13:47) Rash tramadol [From Ultram] Allergy (Verified 08/24/24 13:47) Nausea and Vomiting trazodone Allergy (Verified 08/24/24 13:47) Nausea metoprolol Adverse Reaction (Verified 08/24/24 13:47) Agitated HPI Comments Details: Mercedez was seen in follow for labile blood pressure. She has hypertension from the age of 41 years and has been on multiple medications. She claims that she has a diagnosis of autonomic dysfunction and has been evaluated in the clinic in [place]. She is still follows up with a physician over there. She had tried multiple antihypertensive medications. She has lot of medication intolerances. She has history of aortic dissection and follows up with vascular surgery( Dr Zaragoza). She monitors her blood pressure closely at home. She feels she has a head esparza when her blood pressure goes up and takes hydralazine at the time. She does not take hydralazine on a regular basis. On further H/O taking , she feels she gets a funny feeling followed by unawareness of her surroundings, disconnect from every one , foggy in head for an hour followed by urge to empty the bladder. After the event she feels tired. When someone checks her BP during the event, its always high. She never had chest pain, palpitations or tonic clonic movements of the limbs during this event. She has no history of renal artery dissection. She feels she gets spasms when she takes clonidine and has history of angioedema while taking lisinopril. She also has history of emotional lability while taking beta gautam. She denies any coronary artery disease, CVA, congestive heart failure or peripheral arterial disease. She denies any history of hypokalemia, hypercalcemia, uncontrolled thyroid disorders or documented history of sleep apnea. Her Carvedilol dose was increased recently. She was prescribed Spironolactone which she says was not agreeing with her stomach & she stopped it. She has seen Dr Degroot and was prescribed candesartan which she is tolerating well. She is going to have angio and stenting for PAD by Dr Zaragoza. [facility] Medical History (Updated 12/09/23 @ 16:02 by Gurjit Brooks MD) Gastroparesis Autonomic dysreflexia Vertigo Fibromyalgia History of chronic constipation Essential (primary) hypertension Asthma Reflex sympathetic dystrophy Surgical History History of repair of vocal cord History of cataract surgery History of cholecystectomy History of surgical removal of ganglion cyst History of appendectomy History of partial hysterectomy S/P cervical spinal fusion Family History Father Cancer Paternal Grandfather Heart disease Hypertension Paternal Grandmother Heart disease Hypertension Social History Alcohol intake: never Patient Tobacco Use Status: Never used Tobacco Review of Systems Const All systems reviewed & are unremarkable except as noted in HPI and below Physical Exam Vital Signs: Last Vital Signs Pulse 70 08/24/24 13:47 BP 140/60 H 08/24/24 13:47 Pulse Ox 98 08/24/24 13:47 Oxygen Delivery Method Room Air 08/24/24 13:47 BMI result Body Mass Index 21.9 Const General: comfortable and no acute distress Orientation/consciousness: patient oriented x3 HEENT Head: Yes normocephalic Mouth: Normal oral and palatal mucosa present Eyes EOM: EOMs intact bilaterally Neck Neck: Yes supple Resp Auscultation: clear to auscultation bilaterally Cardio Jugular venous distension: no JVD Rate: regular rate GI Palpation (GI): Soft to palpation Auscultation: normal bowel sounds General: Yes no CVA tenderness Back/Spine/Pelvis Back: no CVA tenderness Skin General skin exam: no rashes or lesions noted Neuro General: patient oriented x3 and moves all extremities Extrem General: Yes no pedal edema Results Reviewed Nephrology Results: No Data to Display Assessment & Plan Assessment & Plan (1) Labile hypertension: Code(s): R09.89 - Other specified symptoms and signs involving the circulatory and respiratory systems Category: Medical Plan Mercedez is known to have hypertension since age of 41 and has been on multiple antihypertensive medications. She claims to have lability of blood pressure ever since she was hospitalized few years ago. She had multiple medication changes. She had an EEG . She has not known to have any renal dysfunction. She needs F/U of Doppler of renal arteries. She has medication intolerances with clonidine, metoprolol and has history of angioedema with lisinopril. She does not take excessive sodium in the diet. She should continue carvedilol to 12.5 mg in the morning and evening as well as Candesartan 8 mg daily. I did not make any other medication changes. She needs to follow-up closely with the vascular surgeon. Follow-up appointment given Orders: Orders Protein Creatinine Ratio, Ur 6 Months R09.89 - Other specified symptoms and signs involving the circulatory and respiratory systems Creatinine 6 Months R09.89 - Other specified symptoms and signs involving the circulatory and respiratory systems Electrolytes 6 Months R09.89 - Other specified symptoms and signs involving the circulatory and respiratory systems Blood Urea Nitrogen 6 Months R09.89 - Other specified symptoms and signs involving the circulatory and respiratory systems Coding Level of Care Code Est Pt Level 4 (40893) Diagnoses Labile hypertension R09.89
[2024-08-24 13:47] VITALS: BP 140/60; PULSE 70; O2SAT 98; BMI 21.9
--- OUTSIDE RECORDS SUMMARY | 2024-08-24 14:31 | XMS_ITS | Continuity of Care Document ---
Author Organization [facility] ter Address [address] [place] [address]- Care Team Providers Care Waste Recycler Name Role Phone Benson Macdonald MD Primary Care Physician [phone] [id number] Date(s): 06/18/24 - 07/31/[address] [address]- Attending Physician: Darien Zaragoza MD Admitting Physician: Darien Zaragoza MD Encounter Type: Preadmit Daystay Allergies, Adverse Reactions, Alerts Substance Criticality Severity Reaction Reaction Severity Status Tagamet Bilateral weakn ess of legs Active erythromycin Drug-induced na usea and vomiting Active penicillin Rash Active lisinopril Angioedema Active sulfa drugs EVERETT - Difficult y in breathing Active Biaxin Rash Active Ultram Nausea Active Bee Stings swelling Active Nuts diarrhea Hazelnut Active Toprol-XL Depressed Active TraZODONE Hydrochloride Nausea Active cloNIDine Tremors Neurological Active Immunizations Given and Recorded Vaccine Date Status Refusal Reason influenza virus vaccine, inactivated 10/04/23 Give n Medications Albuterol (Eqv-ProAir HFA) 90 mcg/inh inhalation aerosol 1 inhalation = 90 mcg, Inhalation, Every 4 hours, PRN as needed for shortness of breath or wheezing, # 18 Gm, 0 Refills, Maintenance, 06/30/24 9:32:00 AM EST, Aerosol, [facility]/pharmacy #[id number], Partial fill upon patient request if the prescription is for a schedule II opioid drug., 1 inhalation Inhalation Every 4 hours,PRN:as needed for shortness of breath or wheezing, 152, cm, 06/30/24 7:44:00 EST, Height, 49.2, kg, 06/30/24 7:44:00 EST, Dry Weight Start Date: 06/30/24 Status: Ordered Quantity: 18.0 Unit: g Repeat number: 1 aspirin 81 mg oral delayed release tablet 81 mg, By Mouth, Daily, # 30 tablet, Refills 11, Tot. Refills 11, Maintenance, 10/07/23 8:20:00 AM EDT, [id number], Partial fill upon patient request if [...] Refills, Maintenance, 03/12/22 4:08:00 PM EDT, Tablet, [id number], Partial fill upon patient request if the prescription is for aschedule II opioid drug., 153, cm, 01/19/22 17:41:00 EDT, Height, 50, kg, 01/19/22 13:01:00 EDT, Dry Weight Start Date: 03/12/22 Status: Ordered Quantity: 30.0 Unit: tablet Repeat number: 6 [place] Saline Mist 0.65% nasal spray 1 sprays, Nares, Both, Daily, PRN as needed for dry nasal passages, 0 Refills, Maintenance, 08/14/23 8:35:00 AM EST, Partial fill upon patient request if the prescription is for a schedule II opioid drug. Start Date: 08/14/23 Status: Ordered Repeat number: 1 beclomethasone 80 mcg/inh inhalation aerosol 1 inhalation = 80 mcg, Inhalation, 2 times a day, # 10.6 Gm, 0 Refills, Maintenance, 07/06/24 10:11:00 AM EST, Aerosol, [facility]/pharmacy #[id number], Partial fill upon patient request if the prescription is for a schedule II opioid drug., 1 inhalation Inhalation 2 times a day, 152, cm, 07/06/24 9:37:00 EST, Height, 49.2, kg, 06/30/24 9:38:00 EST, Dry Weight Start Date: 07/06/24 Status: Ordered Quantity: 10.6 Unit: g Repeat number: 1 Indication: Cough, unspecified candesartan 4 mg oral tablet 1 tablet = 4 mg, By Mouth, 2 times a day, 0 Refills, Maintenance, 06/11/24 2:19:00 PM EST, Partial fill upon patient request if [...] Refills, Maintenance, 12/22/19 3:24:00 PM EDT, Tablet, [id number], 1 tablet By Mouth Daily, 153, cm, 12/22/19 11:55:00 EDT, Height, 49.2, kg, 12/17/19 17:24:00 EDT, Dry Weight Start Date: 12/22/19 Status: Ordered Quantity: 30.0 Unit: tablet Repeat number: 1 ezetimibe 10 mg oral tablet TAKE 1 TABLET BY MOUTH EVERY DAY Start Date: 07/06/24 Status: Ordered Repeat number: 1 gabapentin 100 mg oral [...] Details, Rou te to Pharmacy Electronically, [facility]/pharmacy #[id number], Partial fill upon patient request [...] 2:56:00 PM EDT, Route to Pharmacy Electronically, [id number], Partial fill upon patient request if the [...] Date: 12/13/17 Status: Ordered Repeat number: 1 Mestinon 0 Refills, Maintenance, 06/25/24 12:11:00 PM EST, Partial fill upon patient request if the prescription is for a schedule II opioid drug. Start Date: 06/25/24 Status: Ordered Repeat number: 1 mirtazapine 7.5 [...] Refills, Maintenance, 05/16/24 8:00:00 PM EST, Tablet, [facility]/pharmacy #[id number], Partial fill upon patient request if the [...] Most recent to oldest [Reference Range]: 1 Height 155 cm (06/25/24 12:19 PM) Weight 50 kg (06/25/24 12:19 PM) Body Mass Index [18.5-24.99 kg/m2] 20.81 kg/m2 (06/25/24 12:19 PM) Dry Weight 50 kg (06/25/24 12:19 PM) Social History Social History Type Response [...] MRI Safety Implantable Status Assigning Authority Unknown [id number] Unknown Unknown 02/03/21 Unknown Unknown Active Unknown Unknown [id number] Unknown 12/03/21 Unknown Unknown Active Unkn own Procedure Provider Procedure Date Device Type Site Phacoemulsification Cataract with Jet Perez MD 06/20/20 Unknown Eye Right Device Identifier Serial Number Lot or Batch Number Manufacturing Date Expiration Date Distinct Identification Code MRI Safety Implantable Status Assigning Authority Unknown [id number] Unknown Unknown 07/06/20 Unknown Unknown Active Unknown Patient Care team information Care Team Personnel Name: Ana Moran CNM Position: Reference Physician Member Role: Primary Care Nurse Address: [address] [place] [address]- Telecom: Name: Jasmin Richards RN Position: [facility] RN Member Role: Primary Care Nurse Name: Mer Montague Position: [facility] RN Supv Member Role: Primary Care Nurse Name: Osmani Pride RN Position: [facility] RN Member Role: Primary Care Nurse Name: Galina Mistry RN Position: [facility] RN Member Role: Primary Care Nurse Name: Ashley Reza RN Position: [facility] ED RN W/OE and Tasks Member Role: Primary Care Nurse Name: Nadeem Kohli MD Position: [facility] Cardiology MD Member Role: Lifetime Consulting Physician Address: [address] [place] [address] [address] [place] [address]- [place] Telecom: Name: Arabella Beaz RN Position: [facility] RN Member Role: Primary Care Nurse Name: Domenic Guillaume RN Position: [facility] RN Member Role: Primary Care Nurse Name: Cameron Melo RN Position: [facility] RN Member Role: Primary Care Nurse Name: Aresnio White RN Position: S RN Member Role: Primary Care Nurse Name: Jaime Ramos RN Position: [facility] Outreach Member Role: Primary Care Nurse Name: Cony Schwartz RN Position: [facility] RN Member Role: Primary Care Nurse Name: Maeve Sanon RN Position: [facility] RN Member Role: Primary Care Nurse Name: Arian Mendoza RN Position: [facility] SN RN Member Role: Primary Care Nurse Name: Benson Macdonald MD Position: [facility] Outreach Member Role: PCP Address: [address] [place] [address]- [place] Tele[employer]: Name: Rohini Knight RN Position: [facility] RN Member Role: Primary Care Nurse Name: Nataly Arrington RN Position: S RN Member Role: Primary Care Nurse Name: Anabell Beard RN Position: [facility] RN Member Role: Primary Care Nurse Name: Lucia Luke RN Position: [facility] RN Member Role: Primary Care Nurse Name: Kendra Ruiz RN Position: [facility] RN Member Role: Primary Care Nurse Name: Karuna Limon RN Position: [facility] RN Member Role: Primary Care Nurse Name: Eunice Shannon RN Position: [facility] RN Member Role: Primary Care Nurse Name: Crow Lopez RNAly Position: [facility] ED RN W/OE and Tasks Member Role: Primary Care Nurse Name: Arabella Cabrera RN Position: [facility] RN Member Role: Primary Care Nurse Name: Dilcia Quintanilla RN Position: [facility] RN Member Role: Primary Care Nurse Name: Mattie Melo RN Position: [facility] Outreach Member Role: Primary Care Nurse Name: Conor Park RN Position: [facility] RN Member Role: Primary Care Nurse Name: Salma Jalloh RN Position: [facility] RN Supv Member Role: Primary Care Nurse Name: Roma Reyes RN Position: [facility] RN Member Role: Primary Care Nurse Name: Janelle Uriostegui RN Position: [facility] RN Member Role: Primary Care Nurse Name: Cindy Meza RN Position: [facility] [employer] Member Role: Primary Care Nurse Care Team Related Persons Name: OLIVA WILBURN Name: ALEXANDER DOMINIQUE Insurance Providers Guarantor name: HUNG DOMINIQUE Health Plan Information #: 2 Payer: [facility] Member Number: [id number] Policy Number: NA Group Number: NA Health Plan Information #: 1 Payer: MEDICARE PART B OUTPT Member Number: [id number] Policy Number: NA Group Number: NA
--- OUTSIDE RECORDS SUMMARY | 2024-08-24 14:31 | XMS_ITS | Clinical Summary ---
Author Organization [facility] it Address [address] [place] [address] Care Team Providers Care Collision Repairer Name Role Phone Unavailable Primary Care Provider Unavailabl e Social History Tobacco Use Types Packs/Day Years Used Date Smoking Tobacco: Never Assessed Comments Unknown Sex and Gender Information Value Date Recorded Sex Assigned at Not on file Legal Sex Female 1:26 AM EST Gender Identity Not on file Sexual Orientation Not on file Plan of Treatment Health Maintenance Due Date Last Done Comments Breast Cancer Screening 1950 DTaP,Tdap,and Td Vaccines (1 - Tdap) 09/15/1970 Pneumococcal Vaccine: 50+ Ye ars (1 of 1 - PCV) 09/15/2001 Zoster Vaccines (1 of 2) 09/15/2001 Colorectal Cancer Screening: Colonoscopy 08/05/2023 Depression Screening 08/05/2023 Falls Risk Assessment 08/05/2023 Hepatitis C Screening 08/05/2023 Osteoporosis Screening (Bone Density Screening) 08/05/2023 Social Influencers of Health Screening 08/05/2023 COVID-19 Vaccine ( - 2023-2 5 season) 2024 Influenza Vaccine (#1) 2024 RSV Immunization Patients 60 + Years Old (1 - 1-dose 75+ series) 09/15/2026 HIB Vaccines Aged Out No longer eligi ble based on patient's age to complete this topic HPV Vaccines Aged Out No longer eligi ble based on patient's age to complete this topic Hepatitis A Vaccines Aged Out No long er eligible based on patient's age to complete this topic Hepatitis B Vaccines Aged Out No long er eligible based on patient's age to complete this topic IPV Vaccines Aged Out No longer eligi ble based on patient's age to complete this topic MMR Vaccines Aged Out No longer eligi ble based on patient's age to complete this topic Meningococcal ACWY Vaccine Aged Out N o longer eligible based on patient's age to complete this topic Meningococcal B Vacine Aged Out No lo nger eligible based on patient's age to complete this topic RSV Immunization Patients Un mario 20 months Aged Out No longer eligible b ased on patient's age to complete this topic Varicella Vaccines Aged Out No longer eligible based on patient's age to complete this topic
--- OUTSIDE RECORDS SUMMARY | 2024-08-24 14:31 | XMS_ITS | Continuity of Care Document ---
Author Organization [facility] Address [address] [place] [address]- Care Team Providers Care Network Operations Lead Name Role Phone Benson Macdonald MD Primary Care Physician Encounter [facility] Date(s): 06/29/24 - 07/29/24 [facility] [address] [place], [place] [address] Attending Physician: Dee Leung Admitting Physician: Dee Leung Referring Physician: Dee Leung Encounter Type: Triage Allergies, Adverse Reactions, Alerts Substance Criticality Severity Reaction Reaction Severity Status erythromycin Drug-induced na usea and vomiting Active lisinopril Angioedema Active penicillin Rash Active sulfa drugs EVERETT - Difficult y in breathing Active Tagamet Bilateral weakn ess of legs Active Biaxin Rash Active Nuts diarrhea Hazelnut Active Ultram Nausea Active Bee Stings swelling Active Toprol-XL Depressed Active TraZODONE Hydrochloride Nausea [...] Refills, Maintenance, 06/30/24 9:32:00 AM EST, Aerosol, [facility]/pharmacy #[id number], Partial fill upon patient request [...] 8:20:00 AM EDT, [id number] Partial fill upon patient request [...] Refills, Maintenance, 03/12/22 4:08:00 PM EDT, Tablet, [facility], Partial fill upon patient request if the prescription is for aschedule II opioid drug., 153, cm, 01/19/22 17:41:00 EDT, Height, 50, kg, 01/19/22 13:01:00 EDT, Dry Weight Start Date: 03/12/22 Status: Ordered Quantity: 30.0 Unit: tablet Repeat number: 6 [place] Saline Mist 0.65% nasal spray 1 sprays, [...] Refills, Maintenance, 07/06/24 10:11:00 AM EST, Aerosol, [facility]/pharmacy #1111, Partial fill upon patient request [...] Refills, Maintenance, 12/22/19 3:24:00 PM EDT, Tablet, [id number], 1 tablet By Mouth Daily, 153, cm, [...] Required Details, Rou te to Pharmacy Electronically, [facility]/pharmacy #[id number], Partial fill upon patient request [...] 2:56:00 PM EDT, Route to Pharmacy Electronically, [facility], Partial fill upon patient request if the [...] Refills, Maintenance, 05/16/24 8:00:00 PM EST, Tablet, [facility]/pharmacy #[id number], Partial fill upon patient request [...] MRI Safety Implantable Status Assigning Authority Unknown [id number] Unknown Unknown 02/03/21 Unknown Unknown Active Unknown Unknown [id number] Unknown 12/03/21 Unknown Unknown Active Unkn own Procedure Provider Procedure Date Device Type Site Phacoemulsification Cataract with Jet Perez MD 06/20/20 Unknown Eye Right Device Identifier Serial Number Lot or Batch Number Manufacturing Date Expiration Date Distinct Identification Code MRI Safety Implantable Status Assigning Authority Unknown [id number] Unknown Unknown 07/06/20 Unknown Unknown Active Unknown Patient Care team information Care Team Personnel Name: Ana Moran CNM Position: Reference Physician Member Role: Primary Care Nurse Address: [address] [place] [address] [employer]: Name: Jasmin Richards RN Position: [facility] RN Member Role: Primary Care Nurse Name: Mer Montague Position: [facility] RN Supv Member Role: Primary Care Nurse Name: Osmani Pride RN Position: [facility] RN Member Role: Primary Care Nurse Name: Galina Mistry RN Position: [facility] RN Member Role: Primary Care Nurse Name: Ashley Reza RN Position: [facility] ED RN W/OE and Tasks Member Role: Primary Care Nurse Name: Nadeem Kohli MD Position: [facility] Cardiology MD Member Role: Lifetime Consulting Physician Address: [address] [facility] [address] [place] [address]- [place] Telecom: Name: Arabella Baez RN Position: [facility] RN Member Role: Primary Care Nurse Name: Domenic Guillaume RN Position: [facility] RN Member Role: Primary Care Nurse Name: Cameron Melo RN Position: [facility] RN Member Role: Primary Care Nurse Name: Arsenio White RN Position: [facility] RN Member Role: Primary Care Nurse Name: Jaime Ramos RN Position: [facility] Outreach Member Role: Primary Care Nurse Name: Cony Schwartz RN Position: [facility] RN Member Role: Primary Care Nurse Name: Maeve Sanon RN Position: [facility] RN Member Role: Primary Care Nurse Name: Arian Mendoza RN Position: [facility] SN RN Member Role: Primary Care Nurse Name: Benson Macdonald MD Position: [facility] Outreach Member Role: PCP Address: [address] [place] [address]- [place] Telecom: Name: Rohini Knight RN Position: [facility] RN Member Role: Primary Care Nurse Name: Nataly Arrington RN Position: [facility] RN Member Role: Primary Care Nurse Name: Anabell Beard RN Position: [facility] RN Member Role: Primary Care Nurse Name: Lucia Luke RN Position: [facility] RN Member Role: Primary Care Nurse Name: Kendra Ruiz RN Position: [facility] RN Member Role: Primary Care Nurse Name: Karuna Limon RN Position: [facility] RN Member Role: Primary Care Nurse Name: Eunice Shannon RN Position: [facility] RN Member Role: Primary Care Nurse Name: Aly Maria Jr, RN Position: [facility] ED RN W/OE and Tasks Member Role: Primary Care Nurse Name: Arabella Cabrera RN Position: [facility] RN Member Role: Primary Care Nurse Name: Dilcia Quintanilla RN Position: [facility] RN Member Role: Primary Care Nurse Name: Mattie Melo RN Position: [facility] Outreach Member Role: Primary Care Nurse Name: Conor Park RN Position: [facility] RN Member Role: Primary Care Nurse Name: Salma Jalloh RN Position: [facility] RN Supv Member Role: Primary Care Nurse Name: Roma Reyes RN Position: [facility] RN Member Role: Primary Care Nurse Name: Janelle Uriostegui RN Position: [facility] RN Member Role: Primary Care Nurse Name: Cindy Meza RN Position: [facility] [employer]ke [employer] Member Role: Primary Care Nurse Care Team Related Persons Name: OLIVA WILBURN Name: ALEXANDER DOMINIQUE Insurance Providers Guarantor name: HUNG DOMINIQUE Health Plan Information #: 1 Payer: MEDICARE PART B OUTPT Member Number: NA Policy Number: NA Group Number: NA Health Plan Information #: 2 Payer: [employer] Member Number: NA Policy Number: NA Group Number: NA
--- OUTSIDE RECORDS SUMMARY | 2024-08-24 14:31 | XMS_ITS | Continuity of Care Document ---
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 Name Role Phone Benson Macdonald MD Primary Care Physician [phone] [place] [facility] [place] [facility] [address] [place] [id number] Encounter Type: Triage Allergies, Adverse Reactions, Alerts Substance Criticality Severity Reaction Reaction Severity Status erythromycin Drug-induced na usea and vomiting Active lisinopril Angioedema Active Tagamet Bilateral weakn ess of legs Active penicillin Rash Active sulfa drugs [place] [...] Refills, Maintenance, 06/30/24 9:32:00 AM EST, Aerosol, [facility]/pharmacy #[id number], Partial fill upon patient request [...] 8:20:00 AM EDT, Route to Pharmacy Electronically, [facility]/pharmacy #[id number], Partial fill upon [...] Refills, Maintenance, 03/12/22 4:08:00 PM EDT, Tablet, [id number], Partial fill upon patient request if the prescription is for aschedule II opioid drug., 153, cm, 01/19/22 17:41:00 EDT, Height, 50, kg, 01/19/22 13:01:00 EDT, Dry Weight Start Date: 03/12/22 Status: Ordered Quantity: 30.0 Unit: tablet Repeat number: 6 [place] Saline Mist 0.65% nasal spray 1 sprays, [...] Refills, Maintenance, 07/06/24 10:11:00 AM EST, Aerosol, [facility]/pharmacy #[id number], Partial fill upon [...] Refills, Maintenance, 12/22/19 3:24:00 PM EDT, Tablet, [facility] [id number], 1 tablet By Mouth Daily, 153, cm, [...] Required Details, Rou te [id number] Partial fill upon [...] 2:56:00 PM EDT, Route to Pharmacy Electronically, [facility] [id number], Partial fill upon patient request if the [...] Refills, Maintenance, 05/16/24 8:00:00 PM EST, Tablet, [facility]/pharmacy #[id number], Partial fill upon patient request [...] MRI Safety Implantable Status Assigning Authority Unknown [id number] Unknown Unknown 02/03/21 Unknown Unknown Active Unknown Unknown [id number] Unknown 12/03/21 Unknown Unknown Active Unkn own Procedure Provider Procedure Date Device Type Site Phacoemulsification Cataract with Jet Perez MD 06/20/20 Unknown Eye Right Device Identifier Serial Number Lot or Batch Number Manufacturing Date Expiration Date Distinct Identification Code MRI Safety Implantable Status Assigning Authority Unknown [id number] Unknown Unknown 07/06/20 Unknown Unknown Active Unknown Patient Care team information Care Team Personnel Name: Ana Moran CNM Position: Reference Physician Member Role: Primary Care Nurse Address: [address] [place], [place] [id number] Telecom: Name: Jasmin Richards RN Position: S RN Member Role: Primary Care Nurse Name: Mer Montague Position: [facility] RN Supv Member Role: Primary Care Nurse Name: Osmani Pride RN Position: S RN Member Role: Primary Care Nurse Name: Galina Mistry RN Position: S RN Member Role: Primary Care Nurse Name: Ashley Reza RN Position: [facility] ED RN W/OE and Tasks Member Role: Primary Care Nurse Name: Nadeem Kohli MD Position: [facility] Cardiology MD Member Role: Lifetime Consulting Physician Address: [address] [place] [address] [address] [place] [address]- Telecom: Name: Arabella Baez RN Position: [facility] RN Member Role: Primary Care Nurse Name: Domenic Guillaume RN Position: [facility] RN Member Role: Primary Care Nurse Name: Cameron Melo RN Position: [facility] RN Member Role: Primary Care Nurse Name: Arsenio White RN Position: [facility] RN Member Role: Primary Care Nurse Name: Jaime Ramos RN Position: [facility] Outreach Member Role: Primary Care Nurse Name: Cony Schwartz RN Position: [facility] RN Member Role: Primary Care Nurse Name: Maeve Sanon RN Position: [facility] RN Member Role: Primary Care Nurse Name: Arian Mendoza RN Position: [facility] SN RN Member Role: Primary Care Nurse Name: Benson Macdonald MD Position: [facility] Outreach Member Role: PCP Address: [address] [place] [id number]- Telecom: Name: Rohini Knight RN Position: [facility] RN Member Role: Primary Care Nurse Name: Nataly Arrington RN Position: [facility] RN Member Role: Primary Care Nurse Name: Anabell Beard RN Position: [facility] RN Member Role: Primary Care Nurse Name: Lucia Luke RN Position: [facility] RN Member Role: Primary Care Nurse Name: Kendra Ruiz RN Position: [facility] RN Member Role: Primary Care Nurse Name: Karuna Limon RN Position: [facility] RN Member Role: Primary Care Nurse Name: Eunice Shannon RN Position: [facility] RN Member Role: Primary Care Nurse Name: Aly Maria Jr, RN Position: [facility] ED RN W/OE and Tasks Member Role: Primary Care Nurse Name: Arabella Cabrera RN Position: [facility] RN Member Role: Primary Care Nurse Name: Dilcia Quintanilla RN Position: [facility] RN Member Role: Primary Care Nurse Name: Mattie Melo RN Position: [facility] Outreach Member Role: Primary Care Nurse Name: Conor Park RN Position: [facility] RN Member Role: Primary Care Nurse Name: Salma Jalloh RN Position: [facility] RN Supv Member Role: Primary Care Nurse Name: Roma Reyes RN Position: [facility] RN Member Role: Primary Care Nurse Name: Janelle Uriostegui RN Position: [facility] RN Member Role: Primary Care Nurse Name: Cindy Meza RN Position: [facility] Sports Physiotherapist Member Role: Primary Care Nurse Care Team Related Persons Name: OLIVA WILBURN Name: ALEXANDER DOMINIQUE Insurance Providers Guarantor name: HUNG MYERS Health Plan Information #: 1 Payer: MEDICARE PART B OUTPT Member Number: NA Policy Number: NA Group Number: NA Health Plan Information #: 2 Payer: [employer] Member Number: NA Policy Number: NA Group Number: NA
--- OUTSIDE RECORDS SUMMARY | 2024-08-24 14:32 | XMS_ITS | Clinical Summary ---
Author Organization Unknown Care Team Providers Care Zone Maintenance Technician Name Role Phone PEREZ OLIVEIRA, MARCO ANTONIO Unavailable Unavailable JOE [employer]ION MANAGER, CARLO Unavailable Unavailable MARELN PT, DANIELA Unavailable Unavailable LUIS DE LA FUENTEN, BOBBI Unavailable Unavailable SABRINA DICKENS, NUBIA Unavailable Unavailable Payers Payer Name Policy Type Policy Number Effective Date Expira tion Date MEDICARE.NGS.PDGM [id number] Problems Condition Name Condition Details Condition Category Status Onset Date Resolution Date Last Treatment Date Treating Clinician Comments AUTONOMIC DYSREFLEXIA Active 8 00:00: 00 HYPERTENSIVE HEART DISEASE WITH HEART FAILURE Active 8 00:00: 00 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, RIGHT LEG Active 9-06 00:00: 00 UNSPECIFIED DIASTOLIC (CONGESTIVE) HEART FAILURE Active 1- 00:00: 00 UNSPECIFIED CORD COMPRESSION Active 8- 00:00: 00 COMPLEX REGIONAL PAIN SYNDROME I, UNSPECIFIED Active 8- 00:00: 00 GASTROPARESI S Active 8- 00:00: 00 DYSPHAGIA, UNSPECIFIED Active 8- 00:00: 00 OTHER CHRONIC PAIN Active 1- 00:00: 00 FIBROMYALGIA Active 1- 00:00: 00 SCIATICA, UNSPECIFIED SIDE Active 1- 00:00: 00 Irritable bowel syndrome, unspecified Active 1- 00:00: 00 HYPERLIPIDEM IA, UNSPECIFIED Active 1- 00:00: 00 PRESENCE OF PROSTHETIC HEART VALVE Active 8- 00:00: 00 HALF-WAY (CURRENT) USE OF ASPIRIN Active 8- 00:00: 00 ACQUIRED ABSENCE OF OTHER SPECIFIED PARTS OF DIGESTIVE TRACT Active 8- 00:00: 00 Allergies, Adverse Reactions, Alerts Allergy [...] 920 00:00: 00 01-13 23:59 :00 No [id number] 1 spray DAILY 1 spray DAILY (route: nasal) Med Classific ation: Respirato ry Therapy Agents acetaminoph en 160 mg/5 mL (5 mL) oral solution 10-08 00:00: 00 03-22 00:00 :00 No [id number] 20 mL 3 times daily 20 mL 3 times daily (route: oral) Med Classific ation: Analgesic , Anti-infl ammatory or Antipyret ic albuterol sulfate HFA 90 mcg/actuati on aerosol inhaler 10-08 00:00: 00 01-13 23:59 :00 No [id number] 2 puff NEEDED 2 puff NEEDED (route: inhalation ) Med Classific ation: Respirato ry Therapy Agents alprazolam 1 mg tablet 11-04 00:00: 00 01-13 23:59 :00 No [id number] 0.5 tablet TWICE DAILY 0.5 tablet TWICE DAILY (route: oral) Alternate Route: BY MOUTH. Med Classific ation: Central Nervous System Agents alprazolam 1 mg tablet 11-26 00:00: 00 01-13 23:59 :00 No [id number] 1 tablet NEEDED 1 tablet NEEDED (route: oral) Med Classific ation: Central Nervous System Agents amitriptyli ne 10 mg tablet 11-26 00:00: 00 03-22 00:00 :00 No [id number] 3 tablet NEEDED 3 tablet NEEDED (route: oral) Alternate Route: PEG TUBE. Med Classific ation: Central Nervous System Agents amitriptyli ne 10 mg tablet 20 00:00: 01-13 23:59 :00 No [id number] 3 tablet DAILY 3 tablet DAILY (route: oral) Med Classific ation: Central Nervous System Agents amlodipine 10 mg tablet -20 00:00: 01-13 23:59 :00 No [id number] 1 tablet DAILY 1 tablet DAILY (route: oral) Med Classific ation: Cardiovas cular Therapy Agents amlodipine 5 mg tablet 2-14 00:00: 03-22 00:00 :00 No [id number] 1 tablet ONCE DAILY 1 tablet ONCE DAILY (route: oral) Alternate Route: PEG TUBE. Med Classific ation: Cardiovas cular Therapy Agents carisoprodo l 350 mg tablet 03-26 00:00: 00 01-13 23:59 :00 No [id number] 1 tablet DAILY 1 tablet DAILY (route: oral) Med Classific ation: Locomotor System carisoprodo l 350 mg tablet 5-23 00:00: 03-22 00:00 :00 No [id number] 1 tablet NEEDED 1 tablet NEEDED (route: oral) Alternate Route: PEG TUBE. Med Classific ation: Locomotor System carvedilol 3.125 mg tablet 03-26 00:00: 00 01-13 23:59 :00 No [id number] 1 tablet 2 TIMES DAILY 1 tablet 2 TIMES DAILY (route: oral) Med Classific ation: Cardiovas cular Therapy Agents carvedilol 3.125 mg tablet 2018-07 2-30 00:00: 00 03-22 00:00 :00 No [id number] 1 tablet TWICE DAILY 1 tablet TWICE DAILY (route: oral) Alternate Route: PEG TUBE. Med Classific ation: Cardiovas cular Therapy Agents fluticasone propionate 100 mcg/actuati on blister powder for inhalation 4-04 00:00: 00 03-22 00:00 :00 No [id number] 1 inhalat ion At bedtime 1 inhalation At bedtime (route: inhalation ) Med Classific ation: Respirato ry Therapy Agents hydromorpho ne 1 mg/mL oral liquid 4 00:00: 03-22 00:00 :00 No [id number] 2 mL 4 TIMES DAILY 2 mL 4 TIMES DAILY (route: oral) Alternate Route: GASTROSTO MY TUBE. Med Classific ation: Analgesic , Anti-infl ammatory or Antipyret ic hydromorpho ne 2 mg tablet 03-26 00:00: 00 01-13 23:59 :00 No [id number] 1 tablet EVERY 6 HOURS 1 tablet EVERY 6 HOURS (route: oral) Med Classific ation: Analgesic , Anti-infl ammatory or Antipyret ic melatonin 3 mg tablet 10-08 00:00: 00 01-13 23:59 :00 No [id number] 1 tablet At bedtime 1 tablet At bedtime (route: oral) Med Classific ation: Central Nervous System Agents metoclopram gianluca 10 mg tablet 10-08 00:00: 00 03-22 00:00 :00 No [id number] 1 tablet 3 TIMES DAILY 1 tablet 3 TIMES DAILY (route: oral) Med Classific ation: Gastroint estinal Therapy Agents Miralax 17 gram/dose oral powder 12-16 00:00: 00 01-13 23:59 :00 No [id number] 17 gram DAILY 17 gram DAILY (route: oral) Med Classific ation: Gastroint estinal Therapy Agents multivitami n tablet 10-08 00:00: 03-22 00:00 :00 No [id number] 1 tablet Daily 1 tablet Daily (route: oral) Med Classific ation: Electroly te Balance-N utritiona l Products multivitami n tablet 03-26 00:00: 00 01-13 23:59 :00 No [id number] 1 tablet DAILY 1 tablet DAILY (route: oral) Med Classific ation: Electroly te Balance-N utritiona l Products pantoprazol e 40 mg tablet,effie yed release 12 00:00: 00 01-13 23:59 :00 No [id number] 1 tablet DAILY 1 tablet DAILY (route: oral) Med Classific ation: Gastroint estinal Therapy Agents Senna Plus 8.6 mg-50 mg tablet 12-16 00:00: 00 01-13 23:59 :00 No [id number] 1 tablet DAILY 1 tablet DAILY (route: oral) Med Classific ation: Gastroint estinal Therapy Agents Vitamin D3 50 mcg (2,000 unit) capsule 12-21 00:00: 00 01-13 23:59 :00 No [id number] 1 capsule DAILY 1 capsule DAILY (route: oral) Med Classific ation: Electroly te Balance-N utritiona l Products Xifaxan 550 mg tablet 2019-07 00:00: 00 05-03 23:59 :00 No [id number] 1 tablet 3 TIMES DAILY 1 tablet 3 TIMES DAILY (route: oral) Med Classific ation: Anti-Infe ctive Agents hydralazine 25 mg tablet 2019-07 00:00: 00 01-13 23:59 :00 No [id number] 1 tablet 4 TIMES DAILY 1 tablet 4 TIMES DAILY (route: oral) Med Classific ation: Cardiovas cular Therapy Agents senna 8.6 mg tablet 01-10 00:00: 00 08-18 23:59 :00 No [id number] DIRECTED Per instruc tions ONCE DAILY NEEDED Per instructio ns ONCE DAILY NEEDED (route: oral) Med Classific ation: Gastroint estinal Therapy Agents alprazolam 1 mg tablet 01-09 00:00: 00 01-15 23:59 :00 No [id number] DIRECTED Per instruc tions EVERY DAY FOR 30 DAYS Per instructio ns EVERY DAY FOR 30 DAYS (route: oral) Med Classific ation: Central Nervous System Agents carisoprodo l 350 mg tablet 01-09 00:00: 00 01-15 23:59 :00 No [id number] DIRECTED Per instruc tions FOUR TIMES A DAY NEEDED FOR 30 DAYS Per instructio ns FOUR TIMES A DAY NEEDED FOR 30 DAYS (route: oral) Med Classific ation: Locomotor System hydralazine 25 mg tablet 01-09 00:00: 00 08-18 23:59 :00 No [id number] DIRECTED Per instruc tions ONCE DAILY NEEDED Per instructio ns ONCE DAILY NEEDED (route: oral) Med Classific ation: Cardiovas cular Therapy Agents hydrocodone 5 mg-acetamin ophen 325 mg tablet 01-09 00:00: 00 01-15 23:59 :00 No [id number] DIRECTED Per instruc tions EVERY 12 HOURS NEEDED Per instructio ns EVERY 12 HOURS NEEDED (route: oral) Med Classific ation: Analgesic , Anti-infl ammatory or Antipyret ic atorvastati n 40 mg tablet 01-08 00:00: 00 01-15 23:59 :00 No [id number] DIRECTED Per instruc tions EVERYDAY AT BEDTIME Per instructio ns EVERYDAY AT BEDTIME (route: oral) Med Classific ation: Cardiovas cular Therapy Agents hydrocodone 5 mg-acetamin ophen 325 mg tablet 12-26 00:00: 00 01-15 23:59 :00 No [id number] DIRECTED Per instruc tions NEEDED EVERY 12 HOURS Per instructio ns NEEDED EVERY 12 HOURS (route: oral) Med Classific ation: Analgesic , Anti-infl ammatory or Antipyret ic metoclopram gianluca 5 mg/5 mL oral solution 12-26 00:00: 00 01-15 23:59 :00 No [id number] DIRECTED Per instruc tions GASTROSTOM Y TUBE 3 TIMES A DAY 30 DAYS Per instructio ns GASTROSTOM Y TUBE 3 TIMES A DAY 30 DAYS (route: oral) Med Classific ation: Gastroint estinal Therapy Agents atorvastati n 40 mg tablet 12-11 00:00: 00 08-18 23:59 :00 No [id number] DIRECTED Per instruc tions EVERYDAY AT BEDTIME Per instructio ns EVERYDAY AT BEDTIME (route: oral) Med Classific ation: Cardiovas cular Therapy Agents carisoprodo l 350 mg tablet 12-10 00:00: 00 08-18 23:59 :00 No [id number] PAIN 1 tablet 3 TIMES DAILY 1 tablet 3 TIMES DAILY (route: oral) Med Classific ation: Locomotor System alprazolam 1 mg tablet 6-03 00:00: 00 01-15 23:59 :00 No [id number] DIRECTED Per instruc tions EVERY DAY FOR 30 DAYS Per instructio ns EVERY DAY FOR 30 DAYS (route: oral) Med Classific ation: Central Nervous System Agents hydrocodone 5 mg-acetamin ophen 325 mg tablet 6-03 00:00: 00 01-15 23:59 :00 No [id number] DIRECTED Per instruc tions EVERY 12 HOURS NEEDED Per instructio ns EVERY 12 HOURS NEEDED (route: oral) Med Classific ation: Analgesic , Anti-infl ammatory or Antipyret ic metoclopram gianluca 5 mg/5 mL oral solution 5-19 00:00: 00 08-18 23:59 :00 No [id number] DIRECTED Per instruc tions GASTROSTOM Y TUBE 3 TIMES A DAY 30 DAYS Per instructio ns GASTROSTOM Y TUBE 3 TIMES A DAY 30 DAYS (route: oral) Med Classific ation: Gastroint estinal Therapy Agents baclofen 10 mg tablet 5-14 00:00: 00 01-15 23:59 :00 No [id number] DIRECTED Per instruc tions TWICE A DAY NEEDED FOR 30 DAYS Per instructio ns TWICE A DAY NEEDED FOR 30 DAYS (route: oral) Med Classific ation: Locomotor System carvedilol 3.125 mg tablet 4-26 00:00: 00 08-18 23:59 :00 No [id number] DIRECTED Per instruc tions TWICE DAILY Per instructio ns TWICE DAILY (route: oral) Med Classific ation: Cardiovas cular Therapy Agents amlodipine 5 mg tablet 4-23 00:00: 00 08-18 23:59 :00 No [id number] DIRECTED Per instruc tions EVERY Per instructio ns EVERY (route: oral) Med Classific ation: Cardiovas cular Therapy Agents hydrocodone 5 mg-acetamin ophen 300 mg tablet 7-12 00:00: 00 01-15 23:59 :00 No [id number] DIRECTED 1 tablet EVERY 6 HOURS 1 tablet EVERY 6 HOURS (route: oral) Med Classific ation: Analgesic , Anti-infl ammatory or Antipyret ic Tylenol Extra Strength 500 mg tablet 01-15 00:00: 00 08-18 23:59 :00 No [id number] DIRECTED 1-2 tablet EVERY 6 HOURS 1-2 tablet EVERY 6 HOURS (route: oral) Med Classific ation: Analgesic , Anti-infl ammatory or Antipyret ic Colace 100 mg capsule 01-15 00:00: 00 08-18 23:59 :00 No [id number] CONSTIPATIO N 1 capsule 2 TIMES DAILY 1 capsule 2 TIMES DAILY (route: oral) Med Classific ation: Gastroint estinal Therapy Agents Lasix 20 mg tablet 01-15 00:00: 00 08-18 23:59 :00 No [id number] DIURETIC 1 tablet DAILY 1 tablet DAILY (route: oral) Med Classific ation: Cardiovas cular Therapy Agents melatonin 5 mg tablet 01-15 00:00: 00 08-18 23:59 :00 No [id number] INSOMNIA 1 tablet DAILY 1 tablet DAILY (route: oral) Med Classific ation: Central Nervous System Agents Xanax 0.5 mg tablet 01-15 00:00: 00 08-18 23:59 :00 No [id number] ANXIETY 1 tablet 2 TIMES DAILY 1 tablet 2 TIMES DAILY (route: oral) Med Classific ation: Central Nervous System Agents [id number] 100 gram-sod sulf 7.5 gram-NaCl-K Cl-ascorbat e-C oral pwdr pack 2-11 00:00: 00 10-06 23:59 :00 No [id number] DIRECTED Per instruc tions DAILY Per instructio ns DAILY (route: oral) Med Classific ation: Gastroint estinal Therapy Agents gabapentin 100 mg capsule 2-05 00:00: 00 02-04 23:59 :00 No [id number] PAIN 1 capsule 2 TIMES DAILY 1 capsule 2 TIMES DAILY (route: oral) Med Classific ation: Central Nervous System Agents hydrocodone 5 mg-acetamin ophen 325 mg tablet 2-05 00:00: 00 08-27 14:39 :30.2 6 No [id number] PAIN Per instruc tions EVERY 8 HOURS NEEDED FOR 30 DAYS Per instructio ns EVERY 8 HOURS NEEDED FOR 30 DAYS (route: oral) Med Classific ation: Analgesic , Anti-infl ammatory or Antipyret ic mirtazapine 7.5 mg tablet - 00:00: 00 02-04 23:59 :00 No [id number] ANXIETY 1 tablet DAILY 1 tablet DAILY (route: oral) Med Classific ation: Central Nervous System Agents amlodipine 5 mg tablet 1-25 00:00: 00 02-04 23:59 :00 No [id number] BP 0.5 tablet DAILY 0.5 tablet DAILY (route: oral) Med Classific ation: Cardiovas cular Therapy Agents hydrocodone 5 mg-acetamin ophen 325 mg tablet 1-22 00:00: 00 08-27 14:39 :34.3 27 No [id number] PAIN Per instruc tions EVERY 8 HOURS NEEDED INSURANCE MAX OF 7 DAYS Per instructio ns EVERY 8 HOURS NEEDED INSURANCE MAX OF 7 DAYS (route: oral) Med Classific ation: Analgesic , Anti-infl ammatory or Antipyret ic carvedilol 3.125 mg tablet 1-20 00:00: 00 02-04 23:59 :00 No [id number] BP 1 tablet 2 TIMES DAILY 1 tablet 2 TIMES DAILY (route: oral) Med Classific ation: Cardiovas cular Therapy Agents hydroxyzine HCl 10 mg tablet 1-17 00:00: 00 02-04 23:59 :00 No [id number] ANXIETY/TONA SEA 1 tablet 3 TIMES DAILY 1 tablet 3 TIMES DAILY (route: oral) Med Classific ation: Central Nervous System Agents alprazolam 0.5 mg disintegrat ing tablet 2-19 00:00: 00 02-04 23:59 :00 No [id number] ANXIETY 1 tablet EVERY 6 HOURS 1 tablet EVERY 6 HOURS (route: oral) Med Classific ation: Central Nervous System Agents atorvastati n 40 mg tablet 08-25 00:00: 00 02-04 23:59 :00 No [id number] CHOLESTEROL 1 tablet DAILY 1 tablet DAILY (route: oral) Med Classific ation: Cardiovas cular Therapy Agents carisoprodo l 350 mg tablet 08-25 00:00: 00 02-04 23:59 :00 No [id number] MUSCLE RELAXER 1 tablet 3 TIMES DAILY 1 tablet 3 TIMES DAILY (route: oral) Med Classific ation: Locomotor System cholecalcif lucero (vitamin D3) 50 mcg (2,000 unit) capsule 08-25 00:00: 00 02-04 23:59 :00 No [id number] SUPPLEMENT 1 capsule DAILY 1 capsule DAILY (route: oral) Med Classific ation: Electroly te Balance-N utritiona l Products famotidine 40 mg tablet 08-25 00:00: 00 02-04 23:59 :00 No [id number] REFLUX 1 tablet DAILY 1 tablet DAILY (route: oral) Med Classific ation: Gastroint estinal Therapy Agents hydralazine 25 mg tablet 08-25 00:00: 00 10-11 23:59 :00 No [id number] BP 1 tablet DAILY 1 tablet DAILY (route: oral) Med Classific ation: Cardiovas cular Therapy Agents isosorbide mononitrate 20 mg tablet 08-25 00:00: 00 02-04 23:59 :00 No [id number] CHEST PAIN 1 tablet DAILY 1 tablet DAILY (route: oral) Med Classific ation: Cardiovas cular Therapy Agents metoclopram gianluca 10 mg tablet 08-25 00:00: 00 02-04 23:59 :00 No [id number] ANXIETY 1 tablet 3 TIMES DAILY 1 tablet 3 TIMES DAILY (route: oral) Med Classific ation: Gastroint estinal Therapy Agents senna 8.6 mg capsule - 00:00: 00 02-04 23:59 :00 No [id number] CONSTIPATIO N 1 capsule DAILY 1 capsule DAILY (route: oral) Med Classific ation: Gastroint estinal Therapy Agents Tylenol Extra Strength 500 mg tablet 2-19 00:00: 00 02-04 23:59 :00 No [id number] PAIN 1-2 tablet EVERY 6 HOURS 1-2 tablet EVERY 6 HOURS (route: oral) Med Classific ation: Analgesic , Anti-infl ammatory or Antipyret ic aspirin 81 mg tablet,effie yed release 4- 00:00: 00 02-04 23:59 :00 No [id number] ANTICOAGULA NT 1 tablet DAILY 1 tablet DAILY (route: oral) Med Classific ation: Hematolog ical Agents hydrocodone 5 mg-acetamin ophen 300 mg tablet 3-05 00:00: 00 02-04 23:59 :00 No [id number] MODERATE PAIN 1-2 tablet EVERY 6 HOURS 1-2 tablet EVERY 6 HOURS (route: oral) Med Classific ation: Analgesic , Anti-infl ammatory or Antipyret ic hydralazine 25 mg tablet 07 00:00: 00 02-04 23:59 :00 No [id number] ELEVATED BP 1-2 tablet DAILY 1-2 tablet DAILY (route: oral) Med Classific ation: Cardiovas cular Therapy Agents mirtazapine 7.5 mg tablet 02-01 00:00: 00 Yes [id number] ANTIDEPRESS ANT 7.5 mg BEDTIME 7.5 mg BEDTIME (route: oral) Med Classific ation: Central Nervous System Agents carisoprodo l 350 mg tablet 01-29 00:00: 00 Yes [id number] MUSCLE SPASMS 300 mg NEEDED 3 TIMES A DAY 300 mg NEEDED 3 TIMES A DAY (route: oral) Med Classific ation: Locomotor System carvedilol 12.5 mg tablet 01-25 00:00: 00 03-10 23:59 :00 No [id number] HTN 12.5 mg EVERY AM 12.5 mg EVERY AM (route: oral) Med Classific ation: Cardiovas cular Therapy Agents gabapentin 100 mg capsule 01-25 00:00: 00 Yes [id number] NERVE PAIN 100 mg MORNING IN THE EVENING ( TWICE A DAY 100 mg MORNING IN THE EVENING ( TWICE A DAY (route: oral) Med Classific ation: Central Nervous System Agents cyclobenzap rine 10 mg tablet 01-15 00:00: 00 02-06 00:00 :00 No [id number] Per instruc tions THREE TIMES A DAY NEEDED Per instructio ns THREE TIMES A DAY NEEDED (route: oral) Med Classific ation: Locomotor System hydrocodone 5 mg-acetamin ophen 325 mg tablet 01-15 00:00: 00 02-06 00:00 :00 No [id number] Per instruc tions EVERY 8 HOURS NEEDED FOR 30 DAYS Per instructio ns EVERY 8 HOURS NEEDED FOR 30 DAYS (route: oral) Med Classific ation: Analgesic , Anti-infl ammatory or Antipyret ic carvedilol 3.125 mg tablet 01-13 00:00: 00 06-02 23:59 :00 No [id number] HTN 3.125 mg BEDTIME 3.125 mg BEDTIME (route: oral) Med Classific ation: Cardiovas cular Therapy Agents aspirin 81 mg tablet,effie yed release 02-06 00:00: 00 Yes [id number] NSAID 81 mg DAILY 81 mg DAILY (route: oral) Med Classific ation: Hematolog ical Agents hydralazine 25 mg tablet 02-06 00:00: 00 Yes [id number] HTN 25 mg DAILY 25 mg DAILY (route: oral) Med Classific ation: Cardiovas cular Therapy Agents isosorbide dinitrate 30 mg tablet 02-06 00:00: 00 Yes [id number] PREVENTS ANGINA 30 mg BEDTIME 30 mg BEDTIME (route: oral) Med Classific ation: Cardiovas cular Therapy Agents Lipitor 40 mg tablet 02-06 00:00: 00 Yes [id number] HIGH CHOLESTEROL 40 mg BEDTIME 40 mg BEDTIME (route: oral) Med Classific ation: Cardiovas cular Therapy Agents mirtazapine 7.5 mg tablet 02-06 00:00: 03-16 00:00 :00 No [id number] INSOMNIA 7.5 mg BEDTIME 7.5 mg BEDTIME (route: oral) Med Classific ation: Central Nervous System Agents Multia Daily Multivitami n 4.5 mg iron-500 mcg capsule 02-06 00:00: 00 Yes [id number] SUPPLEMENT 1 capsule DAILY 1 capsule DAILY (route: oral) Med Classific ation: Electroly te Balance-N utritiona l Products oxycodone 5 mg capsule 02-06 00:00: 00 06-18 23:59 :00 No [id number] PAIN 5 mg EVERY 4 HOURS 5 mg EVERY 4 HOURS (route: oral) Med Classific ation: Analgesic , Anti-infl ammatory or Antipyret ic Pepcid 40 mg tablet 02-06 00:00: 00 Yes [id number] GERD 40 mg 2 TIMES DAILY 40 mg 2 TIMES DAILY (route: oral) Med Classific ation: Gastroint estinal Therapy Agents senna leaf extract 176 mg/5 mL oral syrup 02-06 00:00: 00 Yes [id number] CONSTIPATIO N 5 mL DAILY 5 mL DAILY (route: oral) Med Classific ation: Gastroint estinal Therapy Agents Vitamin D3 50 mcg (2,000 unit) capsule 02-06 00:00: 00 Yes [id number] SUPPLEMENT 2000 mcg DAILY 2000 mcg DAILY (route: oral) Med Classific ation: Electroly te Balance-N utritiona l Products Xanax 0.5 mg tablet 02-06 00:00: 00 Yes [id number] ANXIETY 0.5 mg 2 TIMES DAILY 0.5 mg 2 TIMES DAILY (route: oral) Med Classific ation: Central Nervous System Agents cilostazol 50 mg tablet 02-17 00:00: 00 03-22 23:59 :00 No [id number] INCREASE BLOOD FLOW IN LEGS 1 tablet 2 TIMES DAILY 1 tablet 2 TIMES DAILY (route: oral) Med Classific ation: Hematolog ical Agents doxycycline hyclate 100 mg capsule 02-21 00:00: 00 03-02 23:59 :00 No [id number] RIGHT GROIN INFECTION 1 capsule 2 TIMES DAILY 1 capsule 2 TIMES DAILY (route: oral) Med Classific ation: Anti-Infe ctive Agents atorvastati n 40 mg tablet 03-08 00:00: 00 Yes [id number] CHOLESTEROL 1 tablet BEDTIME 1 tablet BEDTIME (route: oral) Med Classific ation: Cardiovas cular Therapy Agents cephalexin 500 mg capsule 03-21 00:00: 00 03-26 23:59 :00 No [id number] GROIN INCISION 1 capsule EVERY 12 HOURS 1 capsule EVERY 12 HOURS (route: oral) Med Classific ation: Anti-Infe ctive Agents carvedilol 12.5 mg tablet 03-10 00:00: 00 Yes [id number] BP 1 tablet DAILY 1 tablet DAILY (route: oral) Med Classific ation: Cardiovas cular Therapy Agents carvedilol 12.5 mg tablet 2023-07 00:00: 00 Yes [id number] HEART 1 tablet 2 TIMES DAILY 1 tablet 2 TIMES DAILY (route: oral) Med Classific ation: Cardiovas cular Therapy Agents carvedilol 12.5 mg tablet 2023-07 00:00: 00 Yes [id number] HTN 1 tablet 2 TIMES DAILY 1 tablet 2 TIMES DAILY (route: oral) Med Classific ation: Cardiovas cular Therapy Agents candesartan 4 mg tablet 2023-07 00:00: 00 06-18 23:59 :00 No [id number] BP 1 tablet DAILY 1 tablet DAILY (route: oral) Med Classific ation: Cardiovas cular Therapy Agents spironolact one 25 mg tablet 2023-07 2 00:00: 00 06-18 23:59 :00 No [id number] EDEMA 1 tablet DAILY 1 tablet DAILY (route: oral) Med Classific ation: Cardiovas cular Therapy Agents candesartan 4 mg tablet 2023-07 00:00: 00 Yes [id number] HTN 2 tablet 2 TIMES DAILY 2 tablet 2 TIMES DAILY (route: oral) Med Classific ation: Cardiovas cular Therapy Agents hydrocodone 5 mg-acetamin ophen 325 mg tablet 2023-07 00:00: 00 Yes [id number] PAIN 1 tablet 2 TIMES DAILY 1 tablet 2 TIMES DAILY (route: oral) Med Classific ation: Analgesic , Anti-infl ammatory or Antipyret ic ezetimibe 10 mg tablet 2023-07- 00:00: 00 Yes [id number] CHOLESTEROL 1 tablet DAILY 1 tablet DAILY (route: oral) Med Classific ation: Cardiovas cular Therapy Agents pyridostigm ine bromide 60 mg tablet 2023-07 00:00: 00 Yes [id number] MYASTHENIA GRAVIS 1 tablet 2 TIMES DAILY 1 tablet 2 TIMES DAILY (route: oral) Med Classific ation: Locomotor System doxycycline hyclate 100 mg tablet 07-07 00:00: 00 07-16 23:59 :00 No [id number] TOOTH ABCESS 100 mg 2 TIMES DAILY 100 mg 2 TIMES DAILY (route: oral) Med Classific ation: Anti-Infe ctive Agents Immunizations Ordered Immunization Name Filled Immunization Name Date Status Comments Refusal Reason INFLUENZA, TIV (INACTIVATED) 2023-09-28 00:00:00 BOOSTER -COVID-19 VACCINE, COVID-19 VACCINE 2021-09-19 00:00:00 SINGLE DOSE REGIMEN, COVID-19 VACCINE 2021-03-09 00:00:00 Vital Signs Vital Name Observation Time Observation Value Commen ts Temperature 2024-08-03 12:25:00.000 97.8 [degF] Temperature 2024-07-22 06:09:00.000 97.2 [degF] Temperature 2024-07-09 13:04:00.000 98.3 [degF] Temperature 2024-06-23 13:59:00.000 97.5 [degF] Temperature 2024-06-18 10:46:00.000 97.3 [degF] Pulse 2024-08-03 12:25:00.000 68 /min Pulse 2024-07-22 06:09:00.000 70 /min Pulse 2024-07-09 13:04:00.000 68 /min Pulse 2024-06-23 13:59:00.000 67 /min Pulse 2024-06-18 10:46:00.000 75 /min O2 Saturation (%) 2024-08-03 12:25:00.000 98 % O2 Saturation (%) 2024-07-22 06:13:00.000 96 % O2 Saturation (%) 2024-07-09 13:05:00.000 98 % O2 Saturation (%) 2024-06-23 13:59:00.000 98 % O2 Saturation (%) 2024-06-18 10:46:00.000 99 % Respirations 2024-08-03 12:25:00.000 18 /min Respirations 2024-07-22 06:09:00.000 16 /min Respirations 2024-07-09 13:04:00.000 18 /min Respirations 2024-06-23 13:59:00.000 16 /min Respirations 2024-06-18 10:46:00.000 18 /min Weight (lbs) 2024-08-03 12:25:00.000 107 [lb_av] Weight (lbs) 2024-07-09 13:05:00.000 140 [lb_av] Weight (lbs) 2024-06-23 14:00:00.000 110 [lb_av] Weight (lbs) 2024-06-18 10:49:00.000 110 [lb_av] Systolic Blood Pressure 2024-08-03 12:25:00.000 122 mm [Hg] Systolic Blood Pressure 2024-07-22 06:09:00.000 128 mm [Hg] Systolic Blood Pressure 2024-07-09 13:04:00.000 132 mm [Hg] Systolic Blood Pressure 2024-06-23 13:59:00.000 166 mm [Hg] Systolic Blood Pressure 2024-06-18 10:46:00.000 148 mm [Hg] Diastolic Blood Pressure 2024-08-03 12:25:00.000 60 mm [Hg] Diastolic Blood Pressure 2024-07-22 06:09:00.000 70 mm [Hg] Diastolic Blood Pressure 2024-07-09 13:04:00.000 64 mm [Hg] Diastolic Blood Pressure 2024-06-23 13:59:00.000 70 mm [Hg] Diastolic Blood Pressure 2024-06-18 10:46:00.000 70 mm [Hg] Plan of Treatment Planned Activity Planned Date Details Comments Future Scheduled Test RN TO OBSE RVE, ASSESS, EVALUATE, AND DEVELOP AN INDIVIDUALIZED PLAN OF CARE. AGENCY MAY ACCEPT ORDERS FROM CONSULTING PHYSICIANS. RN TO OBSERVE AND ASSESS, SALESPERSON [employer]/MACHINE ENGINEER TO OBSERVE FOR RISK FOR FALLS AND INSTRUCT IN FALL PREVENTION, HOME SAFETY, MEDICATION MANAGEMENT, INFECTION PREVENTION, AND NUTRITION MANAGEMENT. RN/SALESPERSON MEN'S FURNISHINGS/MACHINE ENGINEER NURSE MAY PERFORM O2 SATURATION LEVEL ON ADMISSION AND FOR RN TO ASSESS/SALESPERSON MEN'S FURNISHINGS TO OBSERVE PATIENT, WITH NOTIFICATION TO THE PHYSICIAN IF SATURATION IS 90% IN THE ABSENCE OF MORE SPECIFIC PARAMETERS FROM THE PHYSICIAN. AGENCY MAY PERFORM A RESUMPTION OF CARE VISIT FOLLOWING ANY HOSPITAL ADMISSION. RN/SALESPERSON MEN'S FURNISHINGS/MACHINE ENGINEER TO MONITOR CO-MORBID CONDITIONS LISTED ON THE PLAN OF CARE AND ANY NEW CONDITIONS THAT PRESENT THEMSELVES DURING THIS EPISODE TO IDENTIFY CHANGES AND INTERVENE TO MINIMIZE COMPLICATIONS. [code = RN TO OBSERVE, ASSESS, EVALUATE, AND DEVELOP AN INDIVIDUALIZED PLAN OF CARE. AGENCY MAY ACCEPT ORDERS FROM CONSULTING PHYSICIANS. RN TO OBSERVE AND ASSESS, SALESPERSON MEN'S FURNISHINGS/MACHINE ENGINEER TO OBSERVE FOR RISK FOR FALLS AND INSTRUCT IN FALL PREVENTION, HOME SAFETY, MEDICATION MANAGEMENT, INFECTION PREVENTION, AND NUTRITION MANAGEMENT. RN/SALESPERSON MEN'S FURNISHINGS/MACHINE ENGINEER NURSE MAY PERFORM O2 SATURATION LEVEL ON ADMISSION AND FOR RN TO ASSESS/SALESPERSON MEN'S FURNISHINGS TO OBSERVE PATIENT, WITH NOTIFICATION TO THE PHYSICIAN IF SATURATION IS 90% IN THE ABSENCE OF MORE SPECIFIC PARAMETERS FROM THE PHYSICIAN. AGENCY MAY PERFORM A RESUMPTION OF CARE VISIT FOLLOWING ANY HOSPITAL ADMISSION. RN/SALESPERSON MEN'S FURNISHINGS/MACHINE ENGINEER TO MONITOR CO-MORBID CONDITIONS LISTED ON THE PLAN OF CARE AND ANY NEW CONDITIONS THAT PRESENT THEMSELVES DURING THIS EPISODE TO IDENTIFY CHANGES AND INTERVENE TO MINIMIZE COMPLICATIONS.] Future Scheduled Test RISK FOR H OSPITALIZATION; RN TO ASSESS/TEACH, MACHINE ENGINEER/SALESPERSON MEN'S FURNISHINGS TO OBSERVE/TEACH PATIENT/CAREGIVER ON RISK FOR HOSPITALIZATION/EMERGENCY ROOM VISITS, TEACH SIGNS AND SYMPTOMS THAT PUT PATIENT AT RISK, WHEN TO NOTIFY NURSE/PHYSICIAN OF COMPLICATIONS/DECLINE, AND WHEN TO CALL 911. [code = RISK FOR HOSPITALIZATION; RN TO ASSESS/TEACH, MACHINE ENGINEER/SALESPERSON MEN'S FURNISHINGS TO OBSERVE/TEACH PATIENT/CAREGIVER ON RISK FOR HOSPITALIZATION/EMERGENCY ROOM VISITS, TEACH SIGNS AND SYMPTOMS THAT PUT PATIENT AT RISK, WHEN TO NOTIFY NURSE/PHYSICIAN OF COMPLICATIONS/DECLINE, AND WHEN TO CALL 911.] Future Scheduled Test MEDICATION MANAGEMENT; RN/SALESPERSON MEN'S FURNISHINGS/MACHINE ENGINEER TO REVIEW MEDICATIONS FOR INTERACTIONS, EFFECTIVENESS OF DRUG THERAPY, AND SIGNS/SYMPTOMS OF ADVERSE REACTIONS. MAY INSTRUCT AND REINFORCE MEDICATION TEACHING RELATED TO THE USE OF MEDICATIONS, DOSAGE, FREQUENCY, PURPOSE, SIDE EFFECTS, AND TO REPORT COMPLICATIONS. [code = MEDICATION MANAGEMENT; RN/SALESPERSON MEN'S FURNISHINGS/MACHINE ENGINEER TO REVIEW MEDICATIONS FOR INTERACTIONS, EFFECTIVENESS OF DRUG THERAPY, AND SIGNS/SYMPTOMS OF ADVERSE REACTIONS. MAY INSTRUCT AND REINFORCE MEDICATION TEACHING RELATED TO THE USE OF MEDICATIONS, DOSAGE, FREQUENCY, PURPOSE, SIDE EFFECTS, AND TO REPORT COMPLICATIONS.] Future Scheduled Test CARDIOVASC ULAR SYSTEM; RN TO ASSESS/TEACH, SALESPERSON MEN'S FURNISHINGS/MACHINE ENGINEER TO OBSERVE/TEACH RELATED TO ALTERED CARDIOVASCULAR STATUS TO MINIMIZE COMPLICATIONS AND REDUCE HOSPITALIZATION. [code = CARDIOVASCULAR SYSTEM; RN TO ASSESS/TEACH, SALESPERSON MEN'S FURNISHINGS/MACHINE ENGINEER TO OBSERVE/TEACH RELATED TO ALTERED CARDIOVASCULAR STATUS TO MINIMIZE COMPLICATIONS AND REDUCE HOSPITALIZATION.] Future Scheduled Test HYPERTENSI ON MANAGEMENT; RN TO ASSESS AND TEACH, SALESPERSON MEN'S FURNISHINGS/MACHINE ENGINEER TO OBSERVE AND TEACH WARNING SIGNS AND SYMPTOMS TO AVOID HOSPITALIZATION. [code = HYPERTENSION MANAGEMENT; RN TO ASSESS AND TEACH, SALESPERSON MEN'S FURNISHINGS/MACHINE ENGINEER TO OBSERVE AND TEACH WARNING SIGNS AND SYMPTOMS TO AVOID HOSPITALIZATION.] Future Scheduled Test HYPOTENSIO N MANAGEMENT; RN TO ASSESS AND TEACH/ SALESPERSON MEN'S FURNISHINGS /MACHINE ENGINEER TO OBSERVE AND TEACH WARNING SIGNS AND SYMPTOMS TO AVOID HOSPITALIZATION. [code = HYPOTENSION MANAGEMENT; RN TO ASSESS AND TEACH/ SALESPERSON MEN'S FURNISHINGS /MACHINE ENGINEER TO OBSERVE AND TEACH WARNING SIGNS AND SYMPTOMS TO AVOID HOSPITALIZATION.] Future Scheduled Test PAIN MANAG EMENT; RN TO ASSESS AND TEACH, MACHINE ENGINEER/SALESPERSON MEN'S FURNISHINGS TO OBSERVE AND TEACH AND PROVIDE EDUCATION ON PAIN MANAGEMENT TECHNIQUES. [code = PAIN MANAGEMENT; RN TO ASSESS AND TEACH, MACHINE ENGINEER/SALESPERSON MEN'S FURNISHINGS TO OBSERVE AND TEACH AND PROVIDE EDUCATION ON PAIN MANAGEMENT TECHNIQUES.] Future Scheduled Test FALL REDUC TION MANAGEMENT; RN TO ASSESS AND TEACH, SALESPERSON MEN'S FURNISHINGS/MACHINE ENGINEER TO OBSERVE AND TEACH ON EDUCATION AND INTERVENTION TO IDENTIFY FALL RISK FACTORS SUCH MEDICATIONS THAT MAY CAUSE DIZZINESS, CHRONIC DISEASES, PSYCHOLOGICAL FACTORS, AND EMPOWER/EDUCATE PATIENT/CAREGIVER TO MINIMIZE FALL RISK. [code = FALL REDUCTION MANAGEMENT; RN TO ASSESS AND TEACH, SALESPERSON MEN'S FURNISHINGS/MACHINE ENGINEER TO OBSERVE AND TEACH ON EDUCATION AND INTERVENTION TO IDENTIFY FALL RISK FACTORS SUCH MEDICATIONS THAT MAY CAUSE DIZZINESS, CHRONIC DISEASES, PSYCHOLOGICAL FACTORS, AND EMPOWER/EDUCATE PATIENT/CAREGIVER TO MINIMIZE FALL RISK. ] Future Scheduled Test PATIENT RE CERTIFIED FOR ONGOING BP ASSESSMENT DUE TO LABILITY AND NEW MEDICATIONS ADDED. PATIENT HAS APPTS SCHEDULED ON 06/24/24 EMG [place] AND 08/05/24 EEG [place]. [place] IS TRYING TO GET TO THE BOTTOM OF HER LABILE B/P'S AND AUTONOMIC DYSREFLEXIA. PATIENT HAS HAD MANY ED VISITS WITHOUT IMPROVEMEMT OF HER ISSUES. PATIENT EDUCATED TO MONITOR BP'S AND RECORD RESULTS AND ACTIVITIES PRIOR TO BP. PATIENT VERBALIZED UNDERSTANDING. DR. TODD CALLED, SPOKE TO CHANG, RECERTIFICATION DECISION DISCUSSED FOR ONGOING BP AND HEALTH ASSESSMENT. DOCTOR IS IN AGREEMENT WITH RECERTIFICATION. PATIENT IS HOMEBOUND DUE TO IMPAIRED MOBILITY AND ENDURANCE. PATIENT REQUIRES A DEVICE AND AN ASSIST OF ANOTHER TO ENSURE SAFETY AND TO PREVENT FALLS. [code = PATIENT RECERTIFIED FOR ONGOING BP ASSESSMENT DUE TO LABILITY AND NEW MEDICATIONS ADDED. PATIENT HAS APPTS SCHEDULED ON 06/24/24 EMG IN [place] AND 08/05/24 EEG [place]. [place] IS TRYING TO GET TO THE BOTTOM OF HER LABILE B/P'S AND AUTONOMIC DYSREFLEXIA. PATIENT HAS HAD MANY ED VISITS WITHOUT IMPROVEMEMT OF HER ISSUES. PATIENT EDUCATED TO MONITOR BP'S AND RECORD RESULTS AND ACTIVITIES PRIOR TO BP. PATIENT VERBALIZED UNDERSTANDING. DR. TODD CALLED, SPOKE TO CHANG, RECERTIFICATION DECISION DISCUSSED FOR ONGOING BP AND HEALTH ASSESSMENT. DOCTOR IS IN AGREEMENT WITH RECERTIFICATION. PATIENT IS HOMEBOUND DUE TO IMPAIRED MOBILITY AND ENDURANCE. PATIENT REQUIRES A DEVICE AND AN ASSIST OF ANOTHER TO ENSURE SAFETY AND TO PREVENT FALLS. ] Goal 2024-03-16 Patient Goal - TO RETURN TO NORMAL Goal 2024-06-02 Patient Goal - T O RETURN TO NORMAL, HEAL THIS WOUND Goal 2024-03-23 Patient Goal - TO RETURN TO NORMAL Goal 2024-04-06 Patient Goal - T O RETURN TO NORMAL, HEAL THIS WOUND Goal 2024-08-03 Patient Goal - T O RETURN TO [...] TAKE MEDICATIONS PRESCRIBED WITHOUT ADVERSE EFFECTS BY 08/04/24. Goal Provider Goal - PATIENT / CAREGIVER WILL VERBALIZE/DEMONSTRATE UNDERSTANDING OF MEASURES TO MANAGE ALTERED CARDIOVASCULAR STATUS BY 08/04/24. Goal Provider Goal - PATIENT / CAREGIVER WILL VERBALIZE/DEMONSTRATE AN ABILITY TO ADHERE TO SELF-MANAGEMENT OF HTN TO MINIMIZE COMPLICATIONS AND AVOID HOSPITALIZATION BY END OF EPISODE. Goal Provider Goal - PATIENT/CAREGIVER WILL VERBALIZE/DEMONSTRATE ABILITY TO ADHERE TO SELF-MANAGEMENT OF HYPOTENSION TO MINIMIZE COMPLICATIONS AND AVOID HOSPITALIZATION BY THE END OF EPISODE. Goal Provider Goal - PATIENT / CAREGIVER WILL VERBALIZE / DEMONSTRATE UNDERSTANDING OF PAIN CONTROL MEASURES BY END OF EPISODE. Goal Provider Goal - PATIENT/CAREGIVER ABLE TO IDENTIFY FALL RISK FACTORS AND IMPLEMENT STRATEGIES TO MINIMIZE FALL RISK. PATIENT/CAREGIVER WILL VERBALIZE/DEMONSTRATE AN ABILITY TO ADHERE TO FALL REDUCTION SELF-MANAGEMENT AND LIFE-STYLE CHANGES AT DISCHARGE. PERSONAL GOAL(S) STATED BY PATIENT/CAREGIVER WILL BE MET BY END OF EPISODE. Reason for Visit MINIMUM ASSIST WITH TRANSFER/AMBULATION/ADLS Encounters Start Date/Time End Date/Time Encounter Type Admission Type Attending [facility] Department Encounter ID Discharge Date Discharge Status Discharge Condition Discharge Reason Percent Goals Met 2024-02-07 00:00:00 2024-08-03 00:00:00 Outpatient ODALISRTNUB[facility] AY[facility] [id number] 2024-08-03 00:00:00 DISCHARGE TO HOME OR SELF CARE MINIMUM ASSIST WITH TRANSFER/A MBULATION/ ADLS HH OR PAL- GOALS MET 100.00
--- OUTSIDE RECORDS SUMMARY | 2024-08-24 14:32 | XMS_ITS | Clinical Summary ---
Author Organization Unknown Care Team Providers Care Advertising Traffic Manager Name Role Phone PEREZ OLIVEIRA, MARCO ANTONIO Unavailable Unavailable JOE LICENSED HOME INSPECTOR, CARLO Unavailable Unavailable MARLEN PT, DANIELA Unavailable Unavailable LUIS DE LA FUENTEN, BOBBI Unavailable Unavailable SABRINA DICKENS, NUBIA Unavailable Unavailable Payers Payer Name Policy Type Policy Number Effective Date Expira tion Date MEDICARE.NGS.PDGM [id number] Problems Condition Name Condition Details Condition Category Status Onset Date Resolution Date Last Treatment Date Treating Clinician Comments AUTONOMIC DYSREFLEXIA Active 8 00:00: 00 HYPERTENSIVE HEART DISEASE WITH HEART FAILURE Active 8 00:00: 00 [facility] [place] [facility] [place] ART[facility]IES OF EXTREMITIES W REST PAIN, RIGHT [...] 920 00:00: 00 01-13 23:59 :00 No [id number] 1 spray DAILY 1 spray DAILY (route: nasal) Med Classific ation: Respirato ry Therapy Agents acetaminoph en 160 mg/5 mL (5 mL) oral solution 10-08 00:00: 00 03-22 00:00 :00 No [id number] 20 mL 3 times daily 20 mL 3 times daily (route: oral) Med Classific ation: Analgesic , Anti-infl ammatory or Antipyret ic albuterol sulfate HFA 90 mcg/actuati on aerosol inhaler 10-08 00:00: 00 01-13 23:59 :00 No [id number] 2 puff NEEDED 2 puff NEEDED (route: inhalation ) Med Classific ation: Respirato ry Therapy Agents alprazolam 1 mg tablet 11-04 00:00: 00 01-13 23:59 :00 No [id number] 0.5 tablet TWICE DAILY 0.5 tablet TWICE DAILY (route: oral) Alternate Route: BY MOUTH. Med Classific ation: Central Nervous System Agents alprazolam 1 mg tablet 11-26 00:00: 00 01-13 23:59 :00 No [id number] 1 tablet NEEDED 1 tablet NEEDED (route: oral) Med Classific ation: Central Nervous System Agents amitriptyli ne 10 mg tablet 11-26 00:00: 00 03-22 00:00 :00 No [id number] 3 tablet NEEDED 3 tablet NEEDED (route: oral) Alternate Route: PEG TUBE. Med Classific ation: Central Nervous System Agents amitriptyli ne 10 mg tablet 20 00:00: 01-13 23:59 :00 No [id number] 3 tablet DAILY 3 tablet DAILY (route: oral) Med Classific ation: Central Nervous System Agents amlodipine 10 mg tablet -20 00:00: 01-13 23:59 :00 No [id number] 1 tablet DAILY 1 tablet DAILY (route: oral) Med Classific ation: Cardiovas cular Therapy Agents amlodipine 5 mg tablet 2-14 00:00: 03-22 00:00 :00 No [id number] 1 tablet ONCE DAILY 1 tablet ONCE DAILY (route: oral) Alternate Route: PEG TUBE. Med Classific ation: Cardiovas cular Therapy Agents carisoprodo l 350 mg tablet 03-26 00:00: 00 01-13 23:59 :00 No [id number] 1 tablet DAILY 1 tablet DAILY (route: oral) Med Classific ation: Locomotor System carisoprodo l 350 mg tablet 5-23 00:00: 03-22 00:00 :00 No [id number] 1 tablet NEEDED 1 tablet NEEDED (route: oral) Alternate Route: PEG TUBE. Med Classific ation: Locomotor System carvedilol 3.125 mg tablet 03-26 00:00: 00 01-13 23:59 :00 No [id number] 1 tablet 2 TIMES DAILY 1 tablet 2 TIMES DAILY (route: oral) Med Classific ation: Cardiovas cular Therapy Agents carvedilol 3.125 mg tablet 2018-07 2-30 00:00: 00 03-22 00:00 :00 No [id number] 1 tablet TWICE DAILY 1 tablet TWICE DAILY (route: oral) Alternate Route: PEG TUBE. Med Classific ation: Cardiovas cular Therapy Agents fluticasone propionate 100 mcg/actuati on blister powder for inhalation 4-04 00:00: 00 03-22 00:00 :00 No [id number] 1 inhalat ion At bedtime 1 inhalation At bedtime (route: inhalation ) Med Classific ation: Respirato ry Therapy Agents hydromorpho ne 1 mg/mL oral liquid 4 00:00: 03-22 00:00 :00 No [id number] 2 mL 4 TIMES DAILY 2 mL 4 TIMES DAILY (route: oral) Alternate Route: GASTROSTO MY TUBE. Med Classific ation: Analgesic , Anti-infl ammatory or Antipyret ic hydromorpho ne 2 mg tablet 03-26 00:00: 00 01-13 23:59 :00 No [id number] 1 tablet EVERY 6 HOURS 1 tablet EVERY 6 HOURS (route: oral) Med Classific ation: Analgesic , Anti-infl ammatory or Antipyret ic melatonin 3 mg tablet 10-08 00:00: 00 01-13 23:59 :00 No [id number] 1 tablet At bedtime 1 tablet At bedtime (route: oral) Med Classific ation: Central Nervous System Agents metoclopram gianluca 10 mg tablet 10-08 00:00: 00 03-22 00:00 :00 No [id number] 1 tablet 3 TIMES DAILY 1 tablet 3 TIMES DAILY (route: oral) Med Classific ation: Gastroint estinal Therapy Agents Miralax 17 gram/dose oral powder 12-16 00:00: 00 01-13 23:59 :00 No [id number] 17 gram DAILY 17 gram DAILY (route: oral) Med Classific ation: Gastroint estinal Therapy Agents multivitami n tablet 10-08 00:00: 03-22 00:00 :00 No [id number] 1 tablet Daily 1 tablet Daily (route: oral) Med Classific ation: Electroly te Balance-N utritiona l Products multivitami n tablet 03-26 00:00: 00 01-13 23:59 :00 No [id number] 1 tablet DAILY 1 tablet DAILY (route: oral) Med Classific ation: Electroly te Balance-N utritiona l Products pantoprazol e 40 mg tablet,effie yed release 12 00:00: 00 01-13 23:59 :00 No [id number] 1 tablet DAILY 1 tablet DAILY (route: oral) Med Classific ation: Gastroint estinal Therapy Agents Senna Plus 8.6 mg-50 mg tablet 12-16 00:00: 00 01-13 23:59 :00 No [id number] 1 tablet DAILY 1 tablet DAILY (route: oral) Med Classific ation: Gastroint estinal Therapy Agents Vitamin D3 50 mcg (2,000 unit) capsule 12-21 00:00: 00 01-13 23:59 :00 No [id number] 1 capsule DAILY 1 capsule DAILY (route: oral) Med Classific ation: Electroly te Balance-N utritiona l Products Xifaxan 550 mg tablet 2019-07 00:00: 00 05-03 23:59 :00 No [id number] 1 tablet 3 TIMES DAILY 1 tablet 3 TIMES DAILY (route: oral) Med Classific ation: Anti-Infe ctive Agents hydralazine 25 mg tablet 2019-07 00:00: 00 01-13 23:59 :00 No [id number] 1 tablet 4 TIMES DAILY 1 tablet 4 TIMES DAILY (route: oral) Med Classific ation: Cardiovas cular Therapy Agents senna 8.6 mg tablet 01-10 00:00: 00 08-18 23:59 :00 No [id number] DIRECTED Per instruc tions ONCE DAILY NEEDED Per instructio ns ONCE DAILY NEEDED (route: oral) Med Classific ation: Gastroint estinal Therapy Agents alprazolam 1 mg tablet 01-09 00:00: 00 01-15 23:59 :00 No [id number] DIRECTED Per instruc tions EVERY DAY FOR 30 DAYS Per instructio ns EVERY DAY FOR 30 DAYS (route: oral) Med Classific ation: Central Nervous System Agents carisoprodo l 350 mg tablet 01-09 00:00: 00 01-15 23:59 :00 No [id number] DIRECTED Per instruc tions FOUR TIMES A DAY NEEDED FOR 30 DAYS Per instructio ns FOUR TIMES A DAY NEEDED FOR 30 DAYS (route: oral) Med Classific ation: Locomotor System hydralazine 25 mg tablet 01-09 00:00: 00 08-18 23:59 :00 No [id number] DIRECTED Per instruc tions ONCE DAILY NEEDED Per instructio ns ONCE DAILY NEEDED (route: oral) Med Classific ation: Cardiovas cular Therapy Agents hydrocodone 5 mg-acetamin ophen 325 mg tablet 01-09 00:00: 00 01-15 23:59 :00 No [id number] DIRECTED Per instruc tions EVERY 12 HOURS NEEDED Per instructio ns EVERY 12 HOURS NEEDED (route: oral) Med Classific ation: Analgesic , Anti-infl ammatory or Antipyret ic atorvastati n 40 mg tablet 01-08 00:00: 00 01-15 23:59 :00 No [id number] DIRECTED Per instruc tions EVERYDAY AT BEDTIME Per instructio ns EVERYDAY AT BEDTIME (route: oral) Med Classific ation: Cardiovas cular Therapy Agents hydrocodone 5 mg-acetamin ophen 325 mg tablet 12-26 00:00: 00 01-15 23:59 :00 No [id number] DIRECTED Per instruc tions NEEDED EVERY 12 HOURS Per instructio ns NEEDED EVERY 12 HOURS (route: oral) Med Classific ation: Analgesic , Anti-infl ammatory or Antipyret ic metoclopram gianluca 5 mg/5 mL oral solution 12-26 00:00: 00 01-15 23:59 :00 No [id number] DIRECTED Per instruc tions GASTROSTOM Y TUBE 3 TIMES A DAY 30 DAYS Per instructio ns GASTROSTOM Y TUBE 3 TIMES A DAY 30 DAYS (route: oral) Med Classific ation: Gastroint estinal Therapy Agents atorvastati n 40 mg tablet 12-11 00:00: 00 08-18 23:59 :00 No [id number] DIRECTED Per instruc tions EVERYDAY AT BEDTIME Per instructio ns EVERYDAY AT BEDTIME (route: oral) Med Classific ation: Cardiovas cular Therapy Agents carisoprodo l 350 mg tablet 12-10 00:00: 00 08-18 23:59 :00 No [id number] PAIN 1 tablet 3 TIMES DAILY 1 tablet 3 TIMES DAILY (route: oral) Med Classific ation: Locomotor System alprazolam 1 mg tablet 6-03 00:00: 00 01-15 23:59 :00 No [id number] DIRECTED Per instruc tions EVERY DAY FOR 30 DAYS Per instructio ns EVERY DAY FOR 30 DAYS (route: oral) Med Classific ation: Central Nervous System Agents hydrocodone 5 mg-acetamin ophen 325 mg tablet 6-03 00:00: 00 01-15 23:59 :00 No [id number] DIRECTED Per instruc tions EVERY 12 HOURS NEEDED Per instructio ns EVERY 12 HOURS NEEDED (route: oral) Med Classific ation: Analgesic , Anti-infl ammatory or Antipyret ic metoclopram gianluca 5 mg/5 mL oral solution 5-19 00:00: 00 08-18 23:59 :00 No [id number] DIRECTED Per instruc tions GASTROSTOM Y TUBE 3 TIMES A DAY 30 DAYS Per instructio ns GASTROSTOM Y TUBE 3 TIMES A DAY 30 DAYS (route: oral) Med Classific ation: Gastroint estinal Therapy Agents baclofen 10 mg tablet 5-14 00:00: 00 01-15 23:59 :00 No [id number] DIRECTED Per instruc tions TWICE A DAY NEEDED FOR 30 DAYS Per instructio ns TWICE A DAY NEEDED FOR 30 DAYS (route: oral) Med Classific ation: Locomotor System carvedilol 3.125 mg tablet 4-26 00:00: 00 08-18 23:59 :00 No [id number] DIRECTED Per instruc tions TWICE DAILY Per instructio ns TWICE DAILY (route: oral) Med Classific ation: Cardiovas cular Therapy Agents amlodipine 5 mg tablet 4-23 00:00: 00 08-18 23:59 :00 No [id number] DIRECTED Per instruc tions EVERY Per instructio ns EVERY (route: oral) Med Classific ation: Cardiovas cular Therapy Agents hydrocodone 5 mg-acetamin ophen 300 mg tablet 7-12 00:00: 00 01-15 23:59 :00 No [id number] DIRECTED 1 tablet EVERY 6 HOURS 1 tablet EVERY 6 HOURS (route: oral) Med Classific ation: Analgesic , Anti-infl ammatory or Antipyret ic Tylenol Extra Strength 500 mg tablet 01-15 00:00: 00 08-18 23:59 :00 No [id number] DIRECTED 1-2 tablet EVERY 6 HOURS 1-2 tablet EVERY 6 HOURS (route: oral) Med Classific ation: Analgesic , Anti-infl ammatory or Antipyret ic Colace 100 mg capsule 01-15 00:00: 00 08-18 23:59 :00 No [id number] CONSTIPATIO N 1 capsule 2 TIMES DAILY 1 capsule 2 TIMES DAILY (route: oral) Med Classific ation: Gastroint estinal Therapy Agents Lasix 20 mg tablet 01-15 00:00: 00 08-18 23:59 :00 No [id number] DIURETIC 1 tablet DAILY 1 tablet DAILY (route: oral) Med Classific ation: Cardiovas cular Therapy Agents melatonin 5 mg tablet 01-15 00:00: 00 08-18 23:59 :00 No [id number] INSOMNIA 1 tablet DAILY 1 tablet DAILY (route: oral) Med Classific ation: Central Nervous System Agents Xanax 0.5 mg tablet 01-15 00:00: 00 08-18 23:59 :00 No [id number] ANXIETY 1 tablet 2 TIMES DAILY 1 tablet 2 TIMES DAILY (route: oral) Med Classific ation: Central Nervous System Agents [id number] 100 gram-sod sulf 7.5 gram-NaCl-K Cl-ascorbat e-C oral pwdr pack 2-11 00:00: 00 10-06 23:59 :00 No [id number] DIRECTED Per instruc tions DAILY Per instructio ns DAILY (route: oral) Med Classific ation: Gastroint estinal Therapy Agents gabapentin 100 mg capsule 2-05 00:00: 00 02-04 23:59 :00 No [id number] PAIN 1 capsule 2 TIMES DAILY 1 capsule 2 TIMES DAILY (route: oral) Med Classific ation: Central Nervous System Agents hydrocodone 5 mg-acetamin ophen 325 mg tablet 2-05 00:00: 00 08-27 14:39 :30.2 6 No [id number] PAIN Per instruc tions EVERY 8 HOURS NEEDED FOR 30 DAYS Per instructio ns EVERY 8 HOURS NEEDED FOR 30 DAYS (route: oral) Med Classific ation: Analgesic , Anti-infl ammatory or Antipyret ic mirtazapine 7.5 mg tablet - 00:00: 00 02-04 23:59 :00 No [id number] ANXIETY 1 tablet DAILY 1 tablet DAILY (route: oral) Med Classific ation: Central Nervous System Agents amlodipine 5 mg tablet 1-25 00:00: 00 02-04 23:59 :00 No [id number] BP 0.5 tablet DAILY 0.5 tablet DAILY (route: oral) Med Classific ation: Cardiovas cular Therapy Agents hydrocodone 5 mg-acetamin ophen 325 mg tablet 1-22 00:00: 00 08-27 14:39 :34.3 27 No [id number] PAIN Per instruc tions EVERY 8 HOURS NEEDED INSURANCE MAX OF 7 DAYS Per instructio ns EVERY 8 HOURS NEEDED INSURANCE MAX OF 7 DAYS (route: oral) Med Classific ation: Analgesic , Anti-infl ammatory or Antipyret ic carvedilol 3.125 mg tablet 1-20 00:00: 00 02-04 23:59 :00 No [id number] BP 1 tablet 2 TIMES DAILY 1 tablet 2 TIMES DAILY (route: oral) Med Classific ation: Cardiovas cular Therapy Agents hydroxyzine HCl 10 mg tablet 1-17 00:00: 00 02-04 23:59 :00 No [id number] ANXIETY/TONA SEA 1 tablet 3 TIMES DAILY 1 tablet 3 TIMES DAILY (route: oral) Med Classific ation: Central Nervous System Agents alprazolam 0.5 mg disintegrat ing tablet 2-19 00:00: 00 02-04 23:59 :00 No [id number] ANXIETY 1 tablet EVERY 6 HOURS 1 tablet EVERY 6 HOURS (route: oral) Med Classific ation: Central Nervous System Agents atorvastati n 40 mg tablet 08-25 00:00: 00 02-04 23:59 :00 No [id number] CHOLESTEROL 1 tablet DAILY 1 tablet DAILY (route: oral) Med Classific ation: Cardiovas cular Therapy Agents carisoprodo l 350 mg tablet 08-25 00:00: 00 02-04 23:59 :00 No [id number] MUSCLE RELAXER 1 tablet 3 TIMES DAILY 1 tablet 3 TIMES DAILY (route: oral) Med Classific ation: Locomotor System cholecalcif lucero (vitamin D3) 50 mcg (2,000 unit) capsule 08-25 00:00: 00 02-04 23:59 :00 No [id number] SUPPLEMENT 1 capsule DAILY 1 capsule DAILY (route: oral) Med Classific ation: Electroly te Balance-N utritiona l Products famotidine 40 mg tablet 08-25 00:00: 00 02-04 23:59 :00 No [id number] REFLUX 1 tablet DAILY 1 tablet DAILY (route: oral) Med Classific ation: Gastroint estinal Therapy Agents hydralazine 25 mg tablet 08-25 00:00: 00 10-11 23:59 :00 No [id number] BP 1 tablet DAILY 1 tablet DAILY (route: oral) Med Classific ation: Cardiovas cular Therapy Agents isosorbide mononitrate 20 mg tablet 08-25 00:00: 00 02-04 23:59 :00 No [id number] CHEST PAIN 1 tablet DAILY 1 tablet DAILY (route: oral) Med Classific ation: Cardiovas cular Therapy Agents metoclopram gianluca 10 mg tablet 08-25 00:00: 00 02-04 23:59 :00 No [id number] ANXIETY 1 tablet 3 TIMES DAILY 1 tablet 3 TIMES DAILY (route: oral) Med Classific ation: Gastroint estinal Therapy Agents senna 8.6 mg capsule - 00:00: 00 02-04 23:59 :00 No [id number] CONSTIPATIO N 1 capsule DAILY 1 capsule DAILY (route: oral) Med Classific ation: Gastroint estinal Therapy Agents Tylenol Extra Strength 500 mg tablet 2-19 00:00: 00 02-04 23:59 :00 No [id number] PAIN 1-2 tablet EVERY 6 HOURS 1-2 tablet EVERY 6 HOURS (route: oral) Med Classific ation: Analgesic , Anti-infl ammatory or Antipyret ic aspirin 81 mg tablet,effie yed release 4- 00:00: 00 02-04 23:59 :00 No [id number] ANTICOAGULA NT 1 tablet DAILY 1 tablet DAILY (route: oral) Med Classific ation: Hematolog ical Agents hydrocodone 5 mg-acetamin ophen 300 mg tablet 3-05 00:00: 00 02-04 23:59 :00 No [id number] MODERATE PAIN 1-2 tablet EVERY 6 HOURS 1-2 tablet EVERY 6 HOURS (route: oral) Med Classific ation: Analgesic , Anti-infl ammatory or Antipyret ic hydralazine 25 mg tablet 07 00:00: 00 02-04 23:59 :00 No [id number] ELEVATED BP 1-2 tablet DAILY 1-2 tablet DAILY (route: oral) Med Classific ation: Cardiovas cular Therapy Agents mirtazapine 7.5 mg tablet 02-01 00:00: 00 Yes [id number] ANTIDEPRESS ANT 7.5 mg BEDTIME 7.5 mg BEDTIME (route: oral) Med Classific ation: Central Nervous System Agents carisoprodo l 350 mg tablet 01-29 00:00: 00 Yes [id number] MUSCLE SPASMS 300 mg NEEDED 3 TIMES A DAY 300 mg NEEDED 3 TIMES A DAY (route: oral) Med Classific ation: Locomotor System carvedilol 12.5 mg tablet 01-25 00:00: 00 03-10 23:59 :00 No [id number] HTN 12.5 mg EVERY AM 12.5 mg EVERY AM (route: oral) Med Classific ation: Cardiovas cular Therapy Agents gabapentin 100 mg capsule 01-25 00:00: 00 Yes [id number] NERVE PAIN 100 mg MORNING IN THE EVENING ( TWICE A DAY 100 mg MORNING IN THE EVENING ( TWICE A DAY (route: oral) Med Classific ation: Central Nervous System Agents cyclobenzap rine 10 mg tablet 01-15 00:00: 00 02-06 00:00 :00 No [id number] Per instruc tions THREE TIMES A DAY NEEDED Per instructio ns THREE TIMES A DAY NEEDED (route: oral) Med Classific ation: Locomotor System hydrocodone 5 mg-acetamin ophen 325 mg tablet 01-15 00:00: 00 02-06 00:00 :00 No [id number] Per instruc tions EVERY 8 HOURS NEEDED FOR 30 DAYS Per instructio ns EVERY 8 HOURS NEEDED FOR 30 DAYS (route: oral) Med Classific ation: Analgesic , Anti-infl ammatory or Antipyret ic carvedilol 3.125 mg tablet 01-13 00:00: 00 06-02 23:59 :00 No [id number] HTN 3.125 mg BEDTIME 3.125 mg BEDTIME (route: oral) Med Classific ation: Cardiovas cular Therapy Agents aspirin 81 mg tablet,effie yed release 02-06 00:00: 00 Yes [id number] NSAID 81 mg DAILY 81 mg DAILY (route: oral) Med Classific ation: Hematolog ical Agents hydralazine 25 mg tablet 02-06 00:00: 00 Yes [id number] HTN 25 mg DAILY 25 mg DAILY (route: oral) Med Classific ation: Cardiovas cular Therapy Agents isosorbide dinitrate 30 mg tablet 02-06 00:00: 00 Yes [id number] PREVENTS ANGINA 30 mg BEDTIME 30 mg BEDTIME (route: oral) Med Classific ation: Cardiovas cular Therapy Agents Lipitor 40 mg tablet 02-06 00:00: 00 Yes [id number] HIGH CHOLESTEROL 40 mg BEDTIME 40 mg BEDTIME (route: oral) Med Classific ation: Cardiovas cular Therapy Agents mirtazapine 7.5 mg tablet 02-06 00:00: 03-16 00:00 :00 No [id number] INSOMNIA 7.5 mg BEDTIME 7.5 mg BEDTIME (route: oral) Med Classific ation: Central Nervous System Agents Multia Daily Multivitami n 4.5 mg iron-500 mcg capsule 02-06 00:00: 00 Yes [id number] SUPPLEMENT 1 capsule DAILY 1 capsule DAILY (route: oral) Med Classific ation: Electroly te Balance-N utritiona l Products oxycodone 5 mg capsule 02-06 00:00: 00 06-18 23:59 :00 No [id number] PAIN 5 mg EVERY 4 HOURS 5 mg EVERY 4 HOURS (route: oral) Med Classific ation: Analgesic , Anti-infl ammatory or Antipyret ic Pepcid 40 mg tablet 02-06 00:00: 00 Yes [id number] GERD 40 mg 2 TIMES DAILY 40 mg 2 TIMES DAILY (route: oral) Med Classific ation: Gastroint estinal Therapy Agents senna leaf extract 176 mg/5 mL oral syrup 02-06 00:00: 00 Yes [id number] CONSTIPATIO N 5 mL DAILY 5 mL DAILY (route: oral) Med Classific ation: Gastroint estinal Therapy Agents Vitamin D3 50 mcg (2,000 unit) capsule 02-06 00:00: 00 Yes [id number] SUPPLEMENT 2000 mcg DAILY 2000 mcg DAILY (route: oral) Med Classific ation: Electroly te Balance-N utritiona l Products Xanax 0.5 mg tablet 02-06 00:00: 00 Yes [id number] ANXIETY 0.5 mg 2 TIMES DAILY 0.5 mg 2 TIMES DAILY (route: oral) Med Classific ation: Central Nervous System Agents cilostazol 50 mg tablet 02-17 00:00: 00 03-22 23:59 :00 No [id number] INCREASE BLOOD FLOW IN LEGS 1 tablet 2 TIMES DAILY 1 tablet 2 TIMES DAILY (route: oral) Med Classific ation: Hematolog ical Agents doxycycline hyclate 100 mg capsule 02-21 00:00: 00 03-02 23:59 :00 No [id number] RIGHT GROIN INFECTION 1 capsule 2 TIMES DAILY 1 capsule 2 TIMES DAILY (route: oral) Med Classific ation: Anti-Infe ctive Agents atorvastati n 40 mg tablet 03-08 00:00: 00 Yes [id number] CHOLESTEROL 1 tablet BEDTIME 1 tablet BEDTIME (route: oral) Med Classific ation: Cardiovas cular Therapy Agents cephalexin 500 mg capsule 03-21 00:00: 00 03-26 23:59 :00 No [id number] GROIN INCISION 1 capsule EVERY 12 HOURS 1 capsule EVERY 12 HOURS (route: oral) Med Classific ation: Anti-Infe ctive Agents carvedilol 12.5 mg tablet 03-10 00:00: 00 Yes [id number] BP 1 tablet DAILY 1 tablet DAILY (route: oral) Med Classific ation: Cardiovas cular Therapy Agents carvedilol 12.5 mg tablet 2023-07 00:00: 00 Yes [id number] HEART 1 tablet 2 TIMES DAILY 1 tablet 2 TIMES DAILY (route: oral) Med Classific ation: Cardiovas cular Therapy Agents carvedilol 12.5 mg tablet 2023-07 00:00: 00 Yes [id number] HTN 1 tablet 2 TIMES DAILY 1 tablet 2 TIMES DAILY (route: oral) Med Classific ation: Cardiovas cular Therapy Agents candesartan 4 mg tablet 2023-07 00:00: 00 06-18 23:59 :00 No [id number] BP 1 tablet DAILY 1 tablet DAILY (route: oral) Med Classific ation: Cardiovas cular Therapy Agents spironolact one 25 mg tablet 2023-07 2 00:00: 00 06-18 23:59 :00 No [id number] EDEMA 1 tablet DAILY 1 tablet DAILY (route: oral) Med Classific ation: Cardiovas cular Therapy Agents candesartan 4 mg tablet 2023-07 00:00: 00 Yes [id number] HTN 2 tablet 2 TIMES DAILY 2 tablet 2 TIMES DAILY (route: oral) Med Classific ation: Cardiovas cular Therapy Agents hydrocodone 5 mg-acetamin ophen 325 mg tablet 2023-07 00:00: 00 Yes [id number] PAIN 1 tablet 2 TIMES DAILY 1 tablet 2 TIMES DAILY (route: oral) Med Classific ation: Analgesic , Anti-infl ammatory or Antipyret ic ezetimibe 10 mg tablet 2023-07- 00:00: 00 Yes [id number] CHOLESTEROL 1 tablet DAILY 1 tablet DAILY (route: oral) Med Classific ation: Cardiovas cular Therapy Agents pyridostigm ine bromide 60 mg tablet 2023-07 00:00: 00 Yes [id number] MYASTHENIA GRAVIS 1 tablet 2 TIMES DAILY 1 tablet 2 TIMES DAILY (route: oral) Med Classific ation: Locomotor System doxycycline hyclate 100 mg tablet 07-07 00:00: 00 07-16 23:59 :00 No [id number] TOOTH ABCESS 100 mg 2 TIMES DAILY [...] CONSULTING PHYSICIANS. RN TO OBSERVE AND ASSESS, ESCORT SERVICE ATTENDANT/COMMERCIAL MANAGER TO OBSERVE FOR RISK FOR FALLS AND INSTRUCT IN FALL PREVENTION, HOME SAFETY, MEDICATION MANAGEMENT, INFECTION PREVENTION, AND NUTRITION MANAGEMENT. RN/ESCORT SERVICE ATTENDANT/COMMERCIAL MANAGER NURSE MAY PERFORM O2 SATURATION LEVEL ON ADMISSION AND FOR RN TO ASSESS/ESCORT SERVICE ATTENDANT TO OBSERVE PATIENT, WITH NOTIFICATION TO THE PHYSICIAN IF SATURATION IS 90% IN THE ABSENCE OF MORE SPECIFIC PARAMETERS FROM THE PHYSICIAN. AGENCY MAY PERFORM A RESUMPTION OF CARE VISIT FOLLOWING ANY HOSPITAL ADMISSION. RN/ESCORT SERVICE ATTENDANT/COMMERCIAL MANAGER TO MONITOR CO-MORBID CONDITIONS LISTED ON THE PLAN OF CARE AND ANY NEW CONDITIONS THAT PRESENT THEMSELVES DURING THIS EPISODE TO IDENTIFY CHANGES AND INTERVENE TO MINIMIZE COMPLICATIONS. [code = RN TO OBSERVE, ASSESS, EVALUATE, AND DEVELOP AN INDIVIDUALIZED PLAN OF CARE. AGENCY MAY ACCEPT ORDERS FROM CONSULTING PHYSICIANS. RN TO OBSERVE AND ASSESS, ESCORT SERVICE ATTENDANT/COMMERCIAL MANAGER TO OBSERVE FOR RISK FOR FALLS AND INSTRUCT IN FALL PREVENTION, HOME SAFETY, MEDICATION MANAGEMENT, INFECTION PREVENTION, AND NUTRITION MANAGEMENT. RN/ESCORT SERVICE ATTENDANT/COMMERCIAL MANAGER NURSE MAY PERFORM O2 SATURATION LEVEL ON ADMISSION AND FOR RN TO ASSESS/ESCORT SERVICE ATTENDANT TO OBSERVE PATIENT, WITH NOTIFICATION TO THE PHYSICIAN IF SATURATION IS 90% IN THE ABSENCE OF MORE SPECIFIC PARAMETERS FROM THE PHYSICIAN. AGENCY MAY PERFORM A RESUMPTION OF CARE VISIT FOLLOWING ANY HOSPITAL ADMISSION. RN/ESCORT SERVICE ATTENDANT/COMMERCIAL MANAGER TO MONITOR CO-MORBID CONDITIONS LISTED ON THE PLAN OF CARE AND ANY NEW CONDITIONS THAT PRESENT THEMSELVES DURING THIS EPISODE TO IDENTIFY CHANGES AND INTERVENE TO MINIMIZE COMPLICATIONS.] Future Scheduled Test RISK FOR H OSPITALIZATION; RN TO ASSESS/TEACH, COMMERCIAL MANAGER/ESCORT SERVICE ATTENDANT TO OBSERVE/TEACH PATIENT/CAREGIVER ON RISK FOR HOSPITALIZATION/EMERGENCY ROOM VISITS, TEACH SIGNS AND SYMPTOMS THAT PUT PATIENT AT RISK, WHEN TO NOTIFY NURSE/PHYSICIAN OF COMPLICATIONS/DECLINE, AND WHEN TO CALL 911. [code = RISK FOR HOSPITALIZATION; RN TO ASSESS/TEACH, COMMERCIAL MANAGER/ESCORT SERVICE ATTENDANT TO OBSERVE/TEACH PATIENT/CAREGIVER ON RISK FOR HOSPITALIZATION/EMERGENCY ROOM VISITS, TEACH SIGNS AND SYMPTOMS THAT PUT PATIENT AT RISK, WHEN TO NOTIFY NURSE/PHYSICIAN OF COMPLICATIONS/DECLINE, AND WHEN TO CALL 911.] Future Scheduled Test MEDICATION MANAGEMENT; RN/ESCORT SERVICE ATTENDANT/COMMERCIAL MANAGER TO REVIEW MEDICATIONS FOR INTERACTIONS, EFFECTIVENESS OF DRUG THERAPY, AND SIGNS/SYMPTOMS OF ADVERSE REACTIONS. MAY INSTRUCT AND REINFORCE MEDICATION TEACHING RELATED TO THE USE OF MEDICATIONS, DOSAGE, FREQUENCY, PURPOSE, SIDE EFFECTS, AND TO REPORT COMPLICATIONS. [code = MEDICATION MANAGEMENT; RN/ESCORT SERVICE ATTENDANT/COMMERCIAL MANAGER TO REVIEW MEDICATIONS FOR INTERACTIONS, EFFECTIVENESS OF DRUG THERAPY, AND SIGNS/SYMPTOMS OF ADVERSE REACTIONS. MAY INSTRUCT AND REINFORCE MEDICATION TEACHING RELATED TO THE USE OF MEDICATIONS, DOSAGE, FREQUENCY, PURPOSE, SIDE EFFECTS, AND TO REPORT COMPLICATIONS.] Future Scheduled Test CARDIOVASC ULAR SYSTEM; RN TO ASSESS/TEACH, ESCORT SERVICE ATTENDANT/COMMERCIAL MANAGER TO OBSERVE/TEACH RELATED TO ALTERED CARDIOVASCULAR STATUS TO MINIMIZE COMPLICATIONS AND REDUCE HOSPITALIZATION. [code = CARDIOVASCULAR SYSTEM; RN TO ASSESS/TEACH, ESCORT SERVICE ATTENDANT/COMMERCIAL MANAGER TO OBSERVE/TEACH RELATED TO ALTERED CARDIOVASCULAR STATUS TO MINIMIZE COMPLICATIONS AND REDUCE HOSPITALIZATION.] Future Scheduled Test HYPERTENSI ON MANAGEMENT; RN TO ASSESS AND TEACH, ESCORT SERVICE ATTENDANT/COMMERCIAL MANAGER TO OBSERVE AND TEACH WARNING SIGNS AND SYMPTOMS TO AVOID HOSPITALIZATION. [code = HYPERTENSION MANAGEMENT; RN TO ASSESS AND TEACH, ESCORT SERVICE ATTENDANT/COMMERCIAL MANAGER TO OBSERVE AND TEACH WARNING SIGNS AND SYMPTOMS TO AVOID HOSPITALIZATION.] Future Scheduled Test HYPOTENSIO N MANAGEMENT; RN TO ASSESS AND TEACH/ ESCORT SERVICE ATTENDANT /COMMERCIAL MANAGER TO OBSERVE AND TEACH WARNING SIGNS AND SYMPTOMS TO AVOID HOSPITALIZATION. [code = HYPOTENSION MANAGEMENT; RN TO ASSESS AND TEACH/ ESCORT SERVICE ATTENDANT /COMMERCIAL MANAGER TO OBSERVE AND TEACH WARNING SIGNS AND SYMPTOMS TO AVOID HOSPITALIZATION.] Future Scheduled Test PAIN MANAG EMENT; RN TO ASSESS AND TEACH, COMMERCIAL MANAGER/ESCORT SERVICE ATTENDANT TO OBSERVE AND TEACH AND PROVIDE EDUCATION ON PAIN MANAGEMENT TECHNIQUES. [code = PAIN MANAGEMENT; RN TO ASSESS AND TEACH, COMMERCIAL MANAGER/ESCORT SERVICE ATTENDANT TO OBSERVE AND TEACH AND PROVIDE EDUCATION ON PAIN MANAGEMENT TECHNIQUES.] Future Scheduled Test FALL REDUC TION MANAGEMENT; RN TO ASSESS AND TEACH, ESCORT SERVICE ATTENDANT/COMMERCIAL MANAGER TO OBSERVE AND TEACH ON EDUCATION AND INTERVENTION TO IDENTIFY FALL RISK FACTORS SUCH MEDICATIONS THAT MAY CAUSE DIZZINESS, CHRONIC DISEASES, PSYCHOLOGICAL FACTORS, AND EMPOWER/EDUCATE PATIENT/CAREGIVER TO MINIMIZE FALL RISK. [code = FALL REDUCTION MANAGEMENT; RN TO ASSESS AND TEACH, ESCORT SERVICE ATTENDANT/COMMERCIAL MANAGER TO OBSERVE AND TEACH ON EDUCATION AND INTERVENTION TO IDENTIFY FALL RISK FACTORS SUCH MEDICATIONS THAT MAY CAUSE DIZZINESS, CHRONIC DISEASES, PSYCHOLOGICAL FACTORS, AND EMPOWER/EDUCATE PATIENT/CAREGIVER TO MINIMIZE FALL RISK. ] Future Scheduled Test PATIENT RE CERTIFIED FOR ONGOING BP ASSESSMENT DUE TO LABILITY AND NEW MEDICATIONS ADDED. PATIENT HAS APPTS SCHEDULED ON 06/24/24 EMG IN [place] AND 08/05/24 EEG [place]. [place] IS TRYING TO GET TO THE BOTTOM [...] HAS APPTS SCHEDULED ON 06/24/24 EMG IN [place] AND 08/05/24 EEG IN [place]. [place] IS TRYING TO GET TO THE [...] End Date/Time Encounter Type Admission Type Attending [facility] Department Encounter ID Discharge Date Discharge Status Discharge Condition Discharge Reason Percent Goals Met 2024-02-07 00:00:00 2024-08-03 00:00:00 Outpatient ODALISRTNUBIA AYON [facility] [id number] 2024-08-03 00:00:00 DISCHARGE TO HOME OR SELF CARE MINIMUM ASSIST WITH TRANSFER/A MBULATION/ ADLS HH OR PAL- GOALS MET 100.00
--- OUTSIDE RECORDS SUMMARY | 2024-08-24 14:32 | XMS_ITS | Continuity of Care Document ---
Author Organization [facility] Address [address] [place] [address]- Care Team Providers Care Manager Environmental Name Role Phone Benson Macdonald MD Primary Care Physician Encounter [facility] ACCT R [id number] Date(s): 05/10/24 - 07/29/24 [facility] [address] [place] [id number] Attending Physician: Mary Anne Bello NP Admitting [...] Refills, Maintenance, 06/30/24 9:32:00 AM EST, Aerosol, [facility]/pharmacy #[id number], Partial fill upon patient request if [...] AM EDT, Route to Pharmacy Electronically, [facility]/pharmacy #[id number], Partial fill upon patient request if [...] Refills, Maintenance, 03/12/22 4:08:00 PM EDT, Tablet, [id number], Partial fill upon patient request if the prescription is for aschedule II opioid drug., 153, cm, 01/19/22 17:41:00 EDT, Height, 50, kg, 01/19/22 13:01:00 EDT, Dry Weight Start Date: 03/12/22 Status: Ordered Quantity: 30.0 Unit: tablet Repeat number: 6 [place] Saline Mist 0.65% nasal spray 1 sprays, [...] Refills, Maintenance, 07/06/24 10:11:00 AM EST, Aerosol, [facility]/pharmacy #[id number], Partial fill upon patient request if [...] Refills, Maintenance, 12/22/19 3:24:00 PM EDT, Tablet, [id number], 1 tablet By Mouth Daily, 153, cm, [...] Rou te to Pharmacy Electronically[id number], Partial fill upon patient request if [...] 2:56:00 PM EDT, Route to Pharmacy Electronically, [id number], Partial fill upon patient request [...] Maintenance, 05/16/24 8:00:00 PM EST, Tablet, [facility]/pharmacy #[id number], Partial fill upon patient request if [...] MRI Safety Implantable Status Assigning Authority Unknown [id number] Unknown Unknown 02/03/21 Unknown Unknown Active Unknown [id number] 12/03/21 Unknown Unknown Active Unkn own Procedure Provider Procedure Date Device Type Site Phacoemulsification Cataract with Jet Perez MD 06/20/20 Unknown Eye Right Device Identifier Serial Number Lot or Batch Number Manufacturing Date Expiration Date Distinct Identification Code MRI Safety Implantable Status Assigning Authority Unknown [id number] Unknown Unknown 07/06/20 Unknown Unknown Active Unknown Patient Care team information Care Team Personnel Name: Ana Moran CNM Position: Reference Physician Member Role: Primary Care Nurse Address: [address] [place] [address] Telecom: Name: Jasmin Richards RN Position: [facility] RN Member Role: Primary Care Nurse Name: Mer Montague Position: [facility] RN Supv Member Role: Primary Care Nurse Name: Osmani Pride RN Position: S RN Member Role: Primary Care Nurse Name: Galina Mistry RN Position: [facility] RN Member Role: Primary Care Nurse Name: Ashley Reza RN Position: [facility] ED RN W/OE and Tasks Member Role: Primary Care Nurse Name: Nadeem Kohli MD Position: [facility] Cardiology MD Member Role: Lifetime Consulting Physician Address: [address] [place] [address] [address] [place] [address]- Telecom: Name: Arabella Baez RN Position: [facility] RN Member Role: Primary Care Nurse Name: Domenic Guillaume RN Position: [facility] RN Member Role: Primary Care Nurse Name: Cameron Melo RN Position: [facility] RN Member Role: Primary Care Nurse Name: Arsenio White RN Position: [facility] RN Member Role: Primary Care Nurse Name: Jaime Ramos RN Position: [facility] Outreach Member Role: Primary Care Nurse Name: Cony Schwartz RN Position: [facility] RN Member Role: Primary Care Nurse Name: Maeve Sanon RN Position: [facility] RN Member Role: Primary Care Nurse Name: Arian Mendoza RN Position: [facility] SN RN Member Role: Primary Care Nurse Name: Benson Macdonald MD Position: [facility] Outreach Member Role: PCP Address: [address] [place] [address]- EM Telecom: Name: Rohini Knight RN Position: [facility] RN Member Role: Primary Care Nurse Name: Nataly Arrington RN Position: [facility] RN Member Role: Primary Care Nurse Name: Anabell Beard RN Position: [facility] RN Member Role: Primary Care Nurse Name: Lucia Luke RN Position: [facility] RN Member Role: Primary Care Nurse Name: Kendra Ruiz RN Position: [facility] RN Member Role: Primary Care Nurse Name: Karuna Limno RN Position: [facility] RN Member Role: Primary Care Nurse Name: Eunice Shannon RN Position: [facility] RN Member Role: Primary Care Nurse Name: Aly Maria Jr, RN Position: [facility] ED RN W/OE and Tasks Member Role: Primary Care Nurse Name: Arabella Cabrera RN Position: [facility] RN Member Role: Primary Care Nurse Name: Dilcia Quintanilla RN Position: [facility] RN Member Role: Primary Care Nurse Name: Mattie Melo RN Position: [facility] Outreach Member Role: Primary Care Nurse Name: Conor Park RN Position: [facility] RN Member Role: Primary Care Nurse Name: Salma Jalloh RN Position: [facility] RN Supv Member Role: Primary Care Nurse Name: Roma Reyes RN Position: [facility] RN Member Role: Primary Care Nurse Name: Janelle Uriostegui RN Position: [facility] RN Member Role: Primary Care Nurse Name: Cindy Meza RN Position: [facility] Hospital Slat Basket Top Maker Member Role: Primary Care Nurse Care Team Related Persons Name: OLIVA WILBURN Name: ALEXANDER DOMINIQUE Insurance Providers Guarantor name: HUNG MYERS Health Plan Information #: 2 Payer: [facility] Member Number: [id number] Policy Number: NA Group Number: NA Health Plan Information #: 1 Payer: MEDICARE PART B OUTPT Member Number: [id number] Policy Number: NA Group Number: NA
== END 2024-08-24 14:01 | disposition home or self-care (01) ==
PROVIDERS: PCP Family Medicine; Visit Provider Internal Medicine Nephrology
DX: R09.89 Other specified symptoms and signs involving the circulatory and respiratory systems (principal)
CPT/HCPCS: 99214

== ENCOUNTER → 2024-08-24 13:36 | Outpatient (BNVA) | payer MEDICARE, MEDICAID, SELFPAY | PROVIDERS: PCP Family Medicine; Visit Provider Internal Medicine Nephrology | DX: R09.89 Other specified symptoms and signs involving the circulatory and respiratory systems (principal) | CPT/HCPCS: 99212 ==

== ENCOUNTER 2025-02-22 13:48 | Outpatient (AMB) | payer MEDICARE, MEDICAID, SELFPAY ==
--- NOTE | 2025-02-22 14:02 | HO.NEPHOV_ITS ---
Vital Signs 02/22/25 14:26 Height 5 ft Weight 122 lb 8 oz BMI 23.9 BP 130/70 Blood Pressure Location Lt brachial Position Sitting Pulse 65 Pulse Source Pulse Oximeter Pulse Oximetry (%) 99 Oxygen Delivery Method Room Air Intake Visit Reasons: 6mon follow-up w/labs-Conf Interventional Neuroradiologist Required: No Accompanied by: Spouse Allergies cimetidine (From Tagamet) Allergy (Verified 02/22/25 14:26) Gastrointestinal Upset clarithromycin (From Biaxin) Allergy (Verified 02/22/25 14:26) Unknown clonidine Allergy (Verified 02/22/25 14:26) spasms erythromycin base Allergy (Verified 02/22/25 14:26) Rash gabapentin Allergy (Verified 02/22/25 14:26) Muscle Pain lisinopril Allergy (Verified 02/22/25 14:26) Angioedema methocarbamol Allergy (Verified 02/22/25 14:26) Nausea ondansetron Allergy (Verified 02/22/25 14:26) Unknown Penicillins Allergy (Verified 02/22/25 14:26) Unknown Sulfa (Sulfonamide Antibiotics) Allergy (Verified 02/22/25 14:26) Rash tramadol (From Ultram) Allergy (Verified 02/22/25 14:26) Nausea and Vomiting trazodone Allergy (Verified 02/22/25 14:26) Nausea metoprolol Adverse Reaction (Verified 02/22/25 14:26) Agitated HPI Comments Details: Mercedez was seen in follow for labile blood pressure. She has hypertension from the age of 41 years and has been on multiple medications. She claims that she has a diagnosis of autonomic dysfunction and has been evaluated in the clinic in [place]. She is still follows up with a physician over there. She had tried multiple antihypertensive medications. She has lot of medication intolerances. She has history of aortic dissection and follows up with vascular surgery( Dr Zaragoza). She monitors her blood pressure closely at home. She feels she has a head esparza when her blood pressure goes up and takes hydralazine at the time. She does not take hydralazine on a regular basis. On further H/O taking , she feels she gets a funny feeling followed by unawareness of her surroundings, disconnect from every one , foggy in head for an hour followed by urge to empty the bladder. After the event she feels tired. When someone checks her BP during the event, its always high. She never had chest pain, palpitations or tonic clonic movements of the limbs during this event. She has no history of renal art vahe dissection. She feels she gets spasms when she takes clonidine and has history of angioedema while taking lisinopril. She also has history of emotional lability while taking beta gautam. She denies any coronary artery disease, CVA, congestive heart failure or peripheral arterial disease. She denies any history of hypokalemia, hypercalcemia, uncontrolled thyroid disorders or documented history of sleep apnea. She is on Carvedilol. She was prescribed Spironolactone which she says was not agreeing with her stomach & she stopped it. She has seen Dr Degroot and was prescribed candesartan which she is tolerating well. She had angio and stenting for PAD by Dr Zaragoza. She has been having weight gain of 15 pounds in the last one month. Her BP went up recently and was seen in ER. [facility] Medical History (Updated 01/10/25 @ 17:36 by Yani Tejada MA) GERD (gastroesophageal reflux disease) HLD (hyperlipidemia) Depression Chronic pain Dysautonomia Dysphagia Cervical disc disease with myelopathy Gastroparesis Autonomic dysreflexia Vertigo Fibromyalgia History of chronic constipation Essential (primary) hypertension Asthma Reflex sympathetic dystrophy Surgical History History of repair of vocal cord History of cataract surgery History of cholecystectomy History of surgical removal of ganglion cyst History of appendectomy History of partial hysterectomy S/P cervical spinal fusion Family History Father Cancer Paternal Grandfather Heart disease Hypertension Paternal Grandmother Heart disease Hypertension Social History Alcohol intake: never Patient Tobacco Use Status: Never used Tobacco Review of Systems Const All systems reviewed & are unremarkable except as noted in HPI and below Physical Exam Const General: comfortable and no acute distress Orientation/consciousness: patient oriented x3 HEENT Head: Yes normocephalic Mouth: Normal oral and palatal mucosa present Eyes EOM: EOMs intact bilaterally Neck Neck: Yes supple Resp Auscultation: clear to auscultation bilaterally Cardio Jugular venous distension: no JVD Rate: regular rate GI Palpation (GI): Soft to palpation Auscultation: normal bowel sounds General: Yes no CVA tenderness Back/Spine/Pelvis Back: no CVA tenderness Skin General skin exam: no rashes or lesions noted Neuro General: patient oriented x3 and moves all extremities Extrem General: Yes no pedal edema Assessment & Plan Assessment & Plan (1) Labile hypertension: Code(s): R09.89 - Other specified symptoms and signs involving the circulatory and respiratory systems Category: Medical Plan Mercedez is known to have hypertension since age of 41 and has been on multiple antihypertensive medications. She claims to have lability of blood pressure ever since she was hospitalized few years ago. She had multiple medication ch anges. She had an EEG . She has not known to have any renal dysfunction. She needs F/U of Doppler of renal arteries. She has medication intolerances with clonidine, metoprolol and has history of angioedema with lisinopril. She does not take excessive sodium in the diet. She should continue carvedilol to 12.5 mg in the morning and evening as well as Candesartan 10 mg daily. I did not make any other medication changes. She needs to follow-up closely with the vascular surgeon. Follow-up appointment given Orders: Orders Blood Urea Nitrogen 7 Months R09.89 - Other specified symptoms and signs involving the circulatory and respiratory systems Creatinine 7 Months R09.89 - Other specified symptoms and signs involving the circulatory and respiratory systems Electrolytes 7 Months R09.89 - Other specified symptoms and signs involving the circulatory and respiratory systems Coding Level of Care Code Est Pt Level 4 (35042) Diagnoses Labile hypertension R09.89
[2025-02-22 14:26] VITALS: BP 130/70; PULSE 65; O2SAT 99; BMI 23.9
--- OUTSIDE RECORDS SUMMARY | 2025-02-22 15:06 | XMS_ITS | Clinical Summary ---
Author Organization [facility] it Address [address] [place] [address] Care Team Providers Care Mine Engineering Manager Name Role Phone Unavailable Primary Care Provider [...] 2) 09/15/2001 Colorectal Cancer Screening: Colonoscopy 08/05/2023 Falls Risk Assessment 08/05/2023 Hepatitis C Screening 08/05/2023 Osteoporosis Screening (Bone Density Screening) 08/05/2023 Social Influencers of Health Screening 08/05/2023 COVID-19 Vaccine (1 - 2023-2 5 season) 2024 Depression Screening 07/07/2024 Influenza Vaccine (#1) 2025 RSV Immunization Adult Patie nts (1 - 1-dose 75+ series) 09/15/2026 HIB [...] age to complete this topic Meningococcal B Vaccine Aged Out No l onger eligible based on patient's age to complete this topic RSV Immunization Patients Un mario 20 months Aged Out No longer eligible b ased on patient's age to complete this topic Varicella Vaccines Aged Out No longer eligible based on patient's age to complete this topic
--- OUTSIDE RECORDS SUMMARY | 2025-02-22 15:07 | XMS_ITS | Patient Health Record ---
Author Organization [facility] Address [address] [place] [address] Care Team Providers Care Web Marketing Assistant Name Role Phone Larry Acosta DO Primary Care Provider Unavailab yesi Kramer Porcelain Enamel Sprayer, Vera Unavailable Unavailable Allergies Allergen (clinical drug [...] application as nee ded Externally Twice a day; Duration: 30 days 04/30/2021 Active tiZANidine HCl 4 MG 1-2 tabs Orally QHS; Duration: 30 days 02/18/2017 Not-Taking Carvedilol 6.25 MG 1 tablet with food Orally twice a day Active Carisoprodol 350 MG 1 tablet as needed Orally every 8 hours Active HYDROcodone-Acetaminophen 5-325 MG 1 tablet as needed Orally every 6 hrs Active amLODIPine Besylate 5 MG 1 tablet Orally Once a day; Duration: 30 day(s) Active Social History Tobacco Use: Social History Observation Description Date Details (start date - stop date) Never Smoker NA - NA Tobacco Use/Smoking Question Answer Notes Are you a nonsmoker Additional Findings: Tobacco Non-User Current no n-smoker Problems Problem Type SNOMED Code ICD Code Onset Dates Problem Status W/U Status Risk Notes Problem 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 Problem Mononeuropathy of upper limb (898938927) 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) Active confirmed Problem Complex regional pain syndrome type I (disorder) (346500958) Complex regional pain syndrome I, unspecified (G90.50) Active confirmed Problem Cervical spondylosis without myelopathy (186139055) Spondylosis without myelopathy or radiculopathy, cervical region (M47.812) Active confirmed Plan Of Treatment Pending Test Test Name Order Date FIRST ATTEMPT 05/01/2021 physical therapy 02/12/2021 Insurance Providers Payer Name Payer Address Payer Phone Subscriber Number Group Number Insured Name Patient Relationship to Insured Coverage Start Date Coverage End Date Medicare B [facility] [address] [place] [phone] [id number] HUNG DOMINIQUE Self - patient is the insured [employer] Medicaid of [facility] [address] [place] [phone] [id number] HUNG DOMINIQUE Self - patient is the [...]
== END 2025-02-22 14:57 | disposition home or self-care (01) ==
LOC: HO.HKAS 13:49
PROVIDERS: PCP Family Medicine; Visit Provider Internal Medicine Nephrology
DX: R09.89 Other specified symptoms and signs involving the circulatory and respiratory systems (principal)
CPT/HCPCS: 99214

== ENCOUNTER → 2025-02-22 13:48 | Outpatient (BNVA) | payer MEDICARE, MEDICAID, SELFPAY | PROVIDERS: PCP Family Medicine; Visit Provider Internal Medicine Nephrology | DX: R09.89 Other specified symptoms and signs involving the circulatory and respiratory systems (principal) | CPT/HCPCS: 99212 ==

== ENCOUNTER 2025-03-02 13:53 | Outpatient (AMB) | payer MEDICARE, MEDICAID, SELFPAY ==
--- OUTSIDE RECORDS SUMMARY | 2025-02-24 23:59 | XMS_ITS | Continuity of Care Document ---
Author Organization [facility] Address [address] [place] [id number]- Care Team Providers Care Underpresser Hand Name Role Phone Benson Macdonald MD Primary Care Physician [phone] Encounter [facility] Date(s): 01/25/25 - 02/24/25 [facility] [address] [place] [address] Encounter Type: Triage Allergies, Adverse Reactions, Alerts Substance Criticality Severity Reaction Reaction Severity Status erythromycin Drug-induced na usea and vomiting Active Tagamet Bilateral weakn ess of legs Active penicillin Rash Active lisinopril Angioedema Active sulfa drugs EVERETT - Difficult y in breathing Active Biaxin Rash Active Bee Stings swelling Active Ultram Nausea Active Nuts diarrhea Hazelnut Active Toprol-XL Depressed [...] Refills, Maintenance, 06/30/24 9:32:00 AM EST, Aerosol, [facility]/pharmacy #[id number], Partial fill upon patient request if [...] 8:20:00 AM EDT, Route to Pharmacy Electronically, [facility]/pharmacy #[id number], Partial fill upon patient request [...] Refills, Maintenance, 03/12/22 4:08:00 PM EDT, Tablet, [id number], Partial fill upon patient request if the prescription is for aschedule II opioid drug., 153, cm, 01/19/22 17:41:00 EDT, Height, 50, kg, 01/19/22 13:01:00 EDT, Dry Weight Start Date: 03/12/22 Status: Ordered Quantity: 30.0 Unit: tablet Repeat number: 6 [place] Saline Mist 0.65% nasal spray 1 sprays, Nares, Both, Daily, PRN as needed for dry nasal passages, 0 Refills, Maintenance, 08/14/23 8:35:00 AM EST, Partial fill upon patient request if the prescription is for a schedule II opioid drug. Start Date: 08/14/23 Status: Ordered Repeat number: 1 candesartan 4 mg oral tablet 2 tablet = 8 mg, By Mouth, 2 times a day, [...] Refills, Maintenance, 12/22/19 3:24:00 PM EDT, Tablet, [id number], 1 tablet By Mouth Daily, 153, cm, 12/22/19 11:55:00 EDT, Height, 49.2, kg, 12/17/19 17:24:00 EDT, Dry Weight Start Date: 12/22/19 Status: Ordered Quantity: 30.0 Unit: tablet Repeat number: 1 doxycycline hyclate 100 mg oral capsule 1 capsule = 100 mg, By Mouth, Once, Take 1 tab 30-60min prior to dental provedure., # 1 capsule, 0 Refills, Soft Stop, 01/25/25 4:54:00 PM EDT, [facility]/pharmacy #[id number], Partial fill upon patient request ifthe prescription is for a schedule II opioid drug., 153, cm, 12/24/24 12:04:00 EDT, Height, 49.7, kg, 12/24/24 13:36:00 EDT, Dry Weight Start Date: 01/25/25 Status: Ordered Quantity: 1.0 Unit: capsule Repeat number: 1 ezetimibe 10 mg oral tablet TAKE 1 TABLET BY MOUTH EVERY DAY Start Date: 07/06/24 Status: Ordered Repeat number: 1 hydrALAZINE 25 [...] Required Details, Rou te to Pharmacy Electronically, [facility]/pharmacy #[id number], Partial fill upon patient request if the prescription is for a schedule II opioid drug., 152, cm, 04/07/24 8:35:00 EDT, Height, 49.7, kg, 03/21/24 4:09:00 EDT, Dry Weight Start Date: 04/09/24 Status: Ordered Quantity: 180.0 Unit: tablet Repeat number: 2 ibuprofen 200 mg oral tablet 400 mg, 2, tablet, By Mouth, Every 4 hours, PRN, # 100 tablet, Refills 0, Tot. Refills 0, Maintenance, Pain , Moderate, 12/24/24 5:16:00 PM EDT, Route to Pharmacy Electronically, [facility]/pharmacy #[id number], Partial fill upon patient request if the prescription is for a schedule II opioid drug., 153, cm, 12/24/24 12:04:00 EDT, Height, 49.7, kg, 12/24/24 13:36:00 EDT, Dry Weight Start Date: 12/24/24 Status: Ordered Quantity: 100.0 Unit: tablet Repeat number: 1 isosorbide mononitrate 30 mg oral tablet, extended release 30 mg, 1, tablet, By Mouth, Daily in AM, # 90 tablet, Refills 0, Tot. Refills 0, Maintenance, 12/17/22 2:56:00 PM EDT, Route to Pharmacy Electronically, [id number], Partial fill upon patient request [...] Date: 12/13/17 Status: Ordered Repeat number: 1 lidocaine 5% topical film 1 patch, Topically, Daily, remove patches after 12 hours, # 30 patch, 0 Refills, Maintenance, 12/24/24 5:15:00 PM EDT, Film, [facility] #[id number], Partial fill upon patient request if the prescription is for a schedule II opioid drug., 1 patch Topically Daily,Instr:remove patches after 12 hours, 153, cm, 12/24/24 12:04:00 EDT, Height, 49.7, kg, 12/24/24 13:36:00 EDT, Dry Weight Start Date: 12/24/24 Status: Ordered Quantity: 30.0 Unit: patch Repeat number: 1 mirtazapine 7.5 mg oral [...] Quantity: 1.0 Unit: each Repeat number: 1 omeprazole 40 mg oral enteric coated capsule 1 capsule = 40 mg, By Mouth, Daily before breakfast, # 30 capsule, 3 Refills, Maintenance, 09/20/24 1:21:00 PM EDT, EC Capsule, [facility]1111, Partial fill upon patient request if the prescription is for a schedule II opioid drug., 153, cm, 09/10/24 7:58:00 EST, Height, 49.7, kg, 09/09/24 16:13:00 EST, Dry Weight Start Date: 09/20/24 Stop Date: 01/18/25 Status: Ordered Quantity: 30.0 Unit: capsule Repeat number: 4 ondansetron 4 mg oral tablet, disintegrating 1 tablet = 4 mg, By Mouth, Every 8 hours, PRN Nausea & Vomiting, # 9 tablet, 0 Refills, Maintenance, 05/16/24 8:00:00 PM EST, Tablet, [facility]/pharmacy #[id number], Partial fill upon patient request if [...] Quantity: 30.0 Unit: tablet Repeat number: 1 PriLOSEC OTC 20 mg oral delayed release tablet 1 tablet = 20 mg, By Mouth, 2 times a day, # 120 tablet, 0 Refills, Maintenance, 08/27/24 12:29:00 PM EST, EC Tablet, Partial fill upon patient request if the prescription is for a schedule II opioid drug. Start Date: 08/27/24 Status: Ordered Quantity: 120.0 Unit: tablet Repeat number: 1 rosuvastatin 20 mg oral tablet 1 tablet = 20 mg, By Mouth, Daily, # 30 tablet, 5 Refills, Maintenance, 02/16/25 2:57:00 PM EDT, Tablet, Partial fill upon patient request if the prescription is for a schedule II opioid drug. Start Date: 02/16/25 Status: Ordered Quantity: 30.0 Unit: tablet Repeat [...] MRI Safety Implantable Status Assigning Authority Unknown [id number] Unknown Unknown 02/03/21 Unknown Unknown Active Unknown Unknown [id number] Unknown 12/03/21 Unknown Unknown Active Unkn own Procedure Provider Procedure Date Device Type Site Phacoemulsification Cataract with Jet Perez MD 06/20/20 Unknown Eye Right Device Identifier Serial Number Lot or Batch Number Manufacturing Date Expiration Date Distinct Identification Code MRI Safety Implantable Status Assigning Authority Unknown [id number] Unknown Unknown 07/06/20 Unknown Unknown Active Unknown Patient Care team information Care Team Personnel Name: Ana Moran CNM Position: Reference Physician Member Role: Primary Care Nurse Address: [address] [place] [id number] Telecom: Name: Jasmin Richards RN Position: [facility] RN Member Role: Primary Care Nurse Name: Mer Montague Position: [facility] RN Supv Member Role: Primary Care Nurse Name: Osmani Pride RN Position: [facility] RN Member Role: Primary Care Nurse Name: Galina Mistry RN Position: [facility] RN Member Role: Primary Care Nurse Name: Ashley Reza RN Position: [facility] ED RN W/OE and Tasks Member Role: Primary Care Nurse Name: Nadeem Kohli MD Position: [facility] Cardiology MD Member Role: Lifetime Consulting Physician Address: [address] [place], [place] [address] [place] [address]- Telecom: Name: Arabella Baez RN Position: [facility] RN Member Role: Primary Care Nurse Name: Domenic Guillaume RN Position: [facility] RN Member Role: Primary Care Nurse Name: Cameron Melo RN Position: [facility] RN Member Role: Primary Care Nurse Name: Arsenio White RN Position: [facility] RN Member Role: Primary Care Nurse Name: Jaime Ramos RN Position: [facility] Outreach Member Role: Primary Care Nurse Name: Cony Schwartz RN Position: [facility] RN Member Role: Primary Care Nurse Name: Maeve aSnon RN Position: [facility] RN Member Role: Primary Care Nurse Name: Arian Mendoza RN Position: [facility] SN RN Member Role: Primary Care Nurse Name: Benson Macdonald MD Position: [facility] Outreach Member Role: PCP Address: [address] [place] [address]- Telecom: Name: Samaria Macdonald RN Position: [facility] RN Member Role: Primary Care Nurse Name: Rohini Knight RN Position: [facility] RN Member Role: Primary Care Nurse Name: Nataly Arrington RN Position: [facility] RN Member Role: Primary Care Nurse Name: Anabell Beard RN Position: [facility] RN Member Role: Primary Care Nurse Name: Lucia Luke RN Position: [facility] SN RN Member Role: Primary Care Nurse Name: Kendra Ruiz RN Position: [facility] RN Member Role: Primary Care Nurse Name: Karuna Limon RN Position: [facility] RN Member Role: Primary Care Nurse Name: Eunice Shannon RN Position: [facility] RN Member Role: Primary Care Nurse Name: Crow Lopez RN, Aly Position: [facility] ED RN W/OE and Tasks Member Role: Primary Care Nurse Name: Arabella Cabrera RN Position: [facility] RN Member Role: Primary Care Nurse Name: Dilcia Quintanilla RN Position: [facility] RN Member Role: Primary Care Nurse Name: Mattie Melo RN Position: [facility] Outreach Member Role: Primary Care Nurse Name: Conor Park RN Position: [facility] RN Member Role: Primary Care Nurse Name: Salma Jalloh RN Position: [facility] RN Supv Member Role: Primary Care Nurse Name: Roma Reyes RN Position: [facility] RN Member Role: Primary Care Nurse Name: Janelle Uriostegui RN Position: [facility] RN Member Role: Primary Care Nurse Name: iCndy Meza RN Position: [facility] Radiologist Chief Of Breast Imaging Member Role: Primary Care Nurse Care Team Related Persons Name: OLIVA WILBURN Name: ALEXANDER DOMINIQUE Insurance Providers Guarantor name: HUNG DOMINIQUE Health Plan Information #: 1 Payer: MEDICARE B Payer Identifier: Member Number: [id number] Group Number: Subscriber Identifier: [id number] Relationship to Subscriber: self Coverage Type: NA Coverage Verification Date: Telecom: Address: [facility] Information #: 2 Payer: [employer] Payer Identifier: BRITTNY Member Number: [id number] Group Number: Subscriber Identifier: [id number] Relationship to Subscriber: self Coverage Type: MEDICAID Coverage Verification Date: Telecom: Address:
--- NOTE | 2025-03-02 14:01 | A.OFFVIS_ITS ---
Intake Visit Reasons: fu Allergies cimetidine (From Tagamet) Allergy (Verified 02/22/25 14:26) Gastrointestinal Upset clarithromycin (From Biaxin) Allergy (Verified 02/22/25 14:26) Unknown clonidine Allergy (Verified 02/22/25 14:26) spasms erythromycin base Allergy (Verified 02/22/25 14:26) Rash gabapentin Allergy (Verified 02/22/25 14:26) Muscle Pain lisinopril Allergy (Verified 02/22/25 14:26) Angioedema methocarbamol Allergy (Verified 02/22/25 14:26) Nausea ondansetron Allergy (Verified 02/22/25 14:26) Unknown Penicillins Allergy (Verified 02/22/25 14:26) Unknown Sulfa (Sulfonamide Antibiotics) Allergy (Verified 02/22/25 14:26) Rash tramadol (From Ultram) Allergy (Verified 02/22/25 14:26) Nausea and Vomiting trazodone Allergy (Verified 02/22/25 14:26) Nausea metoprolol Adverse Reaction (Verified 02/22/25 14:26) Agitated Medication List - Last Reconciled 03/02/25 by Jose Roberto Rao MD alprazolam mg PO DAILY aspirin 81 mg PO DAILY candesartan 10 mg PO DAILY carisoprodol 350 mg PO QID PRN carvedilol 12.5 mg PO BID docusate sodium 5 mL PO DAILY PRN gabapentin mg PO BID hydralazine 25 mg PO TID PRN hydrocodone-acetaminophen 5-325 mg 1 tab PO TID PRN isosorbide mononitrate ER 30 mg PO DAILY mirtazapine 7.5 mg PO BEDTIME omeprazole 20 mg PO BID rosuvastatin 20 mg PO DAILY sennosides (senna) 8.6 - 17.2 mg PO DAILY PRN HPI Comments Details: Had stenting of Descending aorta and in both legs. It did not help HBP. Mercedez was seen in follow for labile blood pressure with spikes related to physical activity to 200 systolic and other days 100 systolic. When it spikes , she starts to zone out and becomes weak. Takes Hydralazine 50 mg prn for HBP. Went to the ER on 02/18/25 for 210/100. Gradually came down an dshe was discharged. She has hypertension from the age of 41 years and has been on multiple medications. She claims that she has a diagnosis of autonomic dysfunction and has been evaluated in the clinic in [place]. She is still follows up with a physician over there. She had tried multiple antihypertensive medications. She has lot of medication intolerances. She has history of aortic dissection and follows up with vascular surgery( Dr Zaragoza). She monitors her blood pressure closely at home. She feels she has a head esparza when her blood pressure goes up and takes hydralazine at the time. She does not take hydralazine on a regular basis. On further H/O taking , she feels she gets a funny feeling followed by unawareness of her surroundings, disconnect from every one , foggy in head for an hour followed by urge to empty the bladder. After the event she feels tired. When someone checks her BP during the event, its always high. She never had chest pain, palpitations or tonic clonic movements of the limbs during this event. She has no history of renal artery dissection. She feels she gets spasms when she takes clonidine and has history of angioedema while taking lisinopril. She also has history of emotional lability while taking beta gautam. She denies any coronary artery disease, CVA, congestive heart failure or peripheral arterial disease. She denies any history of hypokalemia, hypercalcemia, uncontrolled thyroid disorders or documented history of sleep apnea. She is on Carvedilol. She was prescribed Spironolactone which she says was not agreeing with her stomach & she stopped it. She has seen Dr Buckley and was prescribed candesartan which she is tolerating well. She had angio and st enting for PAD by Dr Zaragoza. She has been having weight gain of 15 pounds in the last one month. Her BP went up recently and was seen in ER. Trying to get into a pain management program. [facility] Medical History (Updated 03/02/25 @ 14:05 by Jose Roberto Rao MD) GERD (gastroesophageal reflux disease) HLD (hyperlipidemia) Depression Chronic pain Dysautonomia Dysphagia Cervical disc disease with myelopathy Gastroparesis Autonomic dysreflexia Vertigo Fibromyalgia History of chronic constipation Essential (primary) hypertension Asthma Reflex sympathetic dystrophy Surgical History History of repair of vocal cord History of cataract surgery History of cholecystectomy History of surgical removal of ganglion cyst History of appendectomy History of partial hysterectomy S/P cervical spinal fusion Family History Father Cancer Paternal Grandfather Heart disease Hypertension Paternal Grandmother Heart disease Hypertension Social History Alcohol intake: never Patient Tobacco Use Status: Never used Tobacco Review of Systems Const All systems reviewed & are unremarkable except as noted in HPI and below Physical Exam Neuro Other: Neurological: ? 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 Mental Status:?alert and oriented X 3,?Normal attention, orientation, memory and affect.? Cranial Nerves:?Pupils are equal, round and reactive to light. Fundoscopy shows normal disc bilaterally. External occular muscles are intact. Visual welch are full, no ptosis. Face is symmetrical, no facial weakness or droop. Facial sensations are normal. Tongue protrudes in midline. Palate elevates symmetrically. Shoulder shrugging is normal..? Motor Examination:?Normal muscle tone, bulk and strength,?No atrophy or fasciculations,?No drift of the extended upper extremities,?Deep tendon reflexes are 2+?,?Plantars are flexor?.? Motor Strength:? Proximal Muscles (out of 5): ?5 ? Distal Muscles (out of 5): ?5 ? Neck Flexors (out of 5): ?5 ? Neck Extensors (out of 5): ?5 ? Deltoid (out of 5): ?5 ? Biceps (out of 5): ?5 ? Triceps (out of 5): ?5 ? Serratus Anterior (out of 5): ?5 ? Wrist Extensors (out of 5): ?5 ? APB (out of 5): ?5 ? Finger Spread (out of 5): ?5 ? Ileopsoas (out of 5): ?5 ? Quadriceps (out of 5): ?5 ? Hamstrings (out of 5): ?5 ? Tibialis Anterior (out of 5): ?5 ? Peronei (out of 5): ?5 ? EDB (out of 5): ?5 ? Gastrocnemius (out of 5): ?5 ? Straight Leg Raising:?90 degrees.? Sensory Exam:?Normal light touch, temperature, pinprick, vibration and joint-position sensations?,?Rhomberg sign is absent.? Coordination:?no ataxia,?no titubation,?hsxmyp-da-mgee, sbbk-sbde-potl test and rapid alternating movements were normal.? Gait Exam:?Within normal limits with walker.? Cerebellar Signs:?Gnzaha-xj-pzrs and grps-yp-esun is normal,?no dysdiadochokinesia?.? Extrapyramidal System:?No tremor, rigidity with normal facial expressions,?No bradykinesia, no bradyphrenia. Normal arm swing and posture. No propulsion or retropulsion.? Speech:?Normal,?no dysphasia or dysarthria..? Mini Mental Status Exam: ? Level of Consciousness:?Alert.? Orientation:?Knows correct year, month, date, day and season,?Knows correct city, county and state. Knows correct location and floor.? Registration:?Able to register 3 objects.? Attention:?Serial 7's performed accurately.? Recall:?Able to recall 3 out of 3 objects.? Language:?Normal spontaneous speech, fluency, repetition,naming, comprehension, reading and writing.? Total Score:?30/30.? General Examination: ? GENERAL APPEARANCE:?normal,?in no acute distress.? HEAD:?normocephalic,?atraumatic.? EYES:?sclera non-icteric,?conjunctiva clear.? EARS:?auditory canal clear,?tympanic membrane intact, clear.? NOSE:?no lesions.? ORAL CAVITY:?gums normal,?mucosa moist,?no lesions.? THROAT:?clear.? NECK/THYROID:?no cervical lymphadenopathy,?thyroid normal,?neck supple, full range of motion,?no carotid bruit.? SKIN:?no rashes,?no significant birthmarks.? HEART:?S1, S2 normal,?no murmurs.? LUNGS:?clear anteriorly and posteriorly.? CHEST:?no gross rib deformity,?clear to auscultation.? BACK:?normal exam of spine.? EXTREMITIES:?no edema.? PERIPHERAL PULSES:?normal.? PSYCH:?alert, oriented,?cognitive function intact,?cooperative with exam.? Assessment & Plan Assessment & Plan (1) Cervical disc disease with myelopathy: Code(s): M50.00 - Cervical disc disorder with myelopathy, unspecified cervical region Category: Medical (2) Dysautonomia: Code(s): G90.1 - Familial dysautonomia [Anuel-Day] Category: Medical Plan F/u with Cardiology and Autonomic dysfunction specialist in [place]. Coding Level of Care Code Est Pt Level 4 (23970) Diagnoses Cervical disc disease with myelopathy M50.00 Dysautonomia G90.1
--- OUTSIDE RECORDS SUMMARY | 2025-03-02 14:46 | XMS_ITS | Clinical Summary ---
Author Organization [facility] it Address [address] [place] [address] Care Team Providers Care Power Originator Name Role Phone Unavailable Primary Care Provider [...]
--- OUTSIDE RECORDS SUMMARY | 2025-03-02 14:46 | XMS_ITS | Patient Health Record ---
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 Problem Complex regional pain syndrome I, unspecified (G90.50) Active confirmed Problem Cervical spondylosis without myelopathy (070035121) Spondylosis without myelopathy or radiculopathy, cervical region (M47.812) Active confirmed Plan Of Treatment Pending Test Test Name Order Date FIRST ATTEMPT 05/01/2021 physical therapy 02/12/2021 Insurance Providers Payer Name Payer Address Payer Phone Subscriber Number Group Number Insured Name Patient Relationship to Insured Coverage Start Date Coverage End Date Medicare B [facility] [address] [place] [phone] [id number] HUNG DOMINIQUE Self - patient is the insured [employer] of [place] [address] [place] [address] [id number] HUNG DOMINIQUE Self - patient is the [...]
== END 2025-03-02 15:22 | disposition home or self-care (01) ==
LOC: HO.HSM 13:53
PROVIDERS: PCP Family Medicine; Visit Provider Psychiatry & Neurology Neurology
DX: M50.00 Cervical disc disorder with myelopathy, unspecified cervical region (principal); G90.1 Familial dysautonomia [Riley-Day]
CPT/HCPCS: 99214

== ENCOUNTER → 2025-03-02 13:53 | Outpatient (BNVA) | payer MEDICARE, MEDICAID, SELFPAY | PROVIDERS: PCP Family Medicine; Visit Provider Psychiatry & Neurology Neurology | DX: G90.1 Familial dysautonomia [Riley-Day] (principal); M50.00 Cervical disc disorder with myelopathy, unspecified cervical region | CPT/HCPCS: 99212 ==